=== PATIENT | female | born 1955 | race Caucasian/White ===

== ENCOUNTER 2016-10-20 16:12 | Inpatient (IN) | payer MEDICARE ==
[~2016-10-20] VITALS: Ht 175.3 cm; Wt 156.1 kg
[~2016-10-20 16:12] MED LIST: Etomidate 2 mg/mL 20 mL Inj IV ONE; Rocuronium 10 mg/mL 5 mL Inj ONE
--- NOTE | 2016-10-20 17:50 | NUR ---
Arrival to unit/rapid intubation Patient arrived to room 2019. Decreased LOC at time of arrival, unable to follow commands or answer questions asked. Groaning and grunting to stimuli. ST per soft mud molder. Pressure stable, 130/73. Afebrile. Sp02> 92% on 3L per oxymask. Tenorio present at time of arrival with dark shikha output. Rapid intubation: Pre-medicated with 30mg etomidate & 100mg rocuronium at 17:50. 7.5 ET tube placed 26 at the lip by Dr Kothari at 17:57. Color changed noted. Equal chest rise observed. Bilateral breath sounds auscultated. Chest xray ordered for placement confirmation.
--- NOTE | 2016-10-20 17:55 | ABG ---
DateTimeAnalyzed 17:46:48 -_ pH ____7.135 - 7.350 7.450 pCO2 ___49.4__ -mmHg 35.0 45.0 pO2 143 -mmHg 70.0 100 HCO3- ___16.6__ -mmol/L 22.0 26.0 ABE __-11.4__ -mmol/L -2.0 2.0 tHb ____9.5__ -g/dL 12.0 18.0 O2Hb ___97.6__ -% 95.0 COHb ____1.0__ -% 1.5 MetHb ____0.5__ -% 0.4 1.5 sO2 ___99.1__ -% FIO2 ___21.0__ -% Drawn By jmw - Date/Time Notified____ 17:55:00 -_ Liter_Flow ___15.00_ -L/min Oxygen Device 1 NON RE-MACHO - Notified By jmw - Notified Whom DR NAHID - K+ ____4.9__ -mmol/L tO2 ___13.4__ -Vol% Ruben test _Positive -
[2016-10-20 17:59] VITALS: BP 111/50; PULSE 107; RESP 18; O2SAT 98
--- NOTE | 2016-10-20 17:59 | ABG ---
DateTimeAnalyzed 17:46:48 -_ pH ____7.135 - 7.350 7.450 pCO2 ___49.4__ -mmHg 35.0 45.0 pO2 143 -mmHg 69.0 116 HCO3- ___16.6__ -mmol/L 22.0 26.0 ABE __-11.4__ -mmol/L tHb ____9.5__ -g/dL O2Hb ___97.6__ -% COHb ____1.0__ -% 1.5 MetHb ____0.5__ -% sO2 ___99.1__ -% FIO2 __100.0__ -% Drawn By jmw - Date/Time Notified____ 17:55:00 -_ Notified By jmw - Notified Whom DR NAHID - K+ ____4.9__ -mmol/L tO2 ___13.4__ -Vol% Ruben test _Positive -
[2016-10-20 18:08] VITALS: BP 145/74; O2SAT 96
[2016-10-20 18:15] VITALS: BP 158/79; PULSE 109; RESP 20; O2SAT 95
[2016-10-20 18:30] VITALS: BP 150/68; PULSE 104; RESP 18; O2SAT 93
[2016-10-20] MEDS ORDERED: fentaNYL-PF 50 mCg/mL 2 mL Inj IVPUSH PRN (18:30)
[2016-10-20] MEDS ORDERED: Alum-Mag Hydrox-Simeth 30 mL Suspension PO PRN (18:30)
[2016-10-20] MEDS ORDERED: Ondansetron 2 mg/mL 2 mL Inj IVPUSH PRN (18:30)
[2016-10-20] MEDS ORDERED: Acetaminophen IV 1,000 MG in IV Premix 1 EACH IV PRN (18:30)
[2016-10-20] MEDS ORDERED: Senna-Docusate 8.6-50 mg Tablet PO PRN (18:30)
[2016-10-20] MEDS ORDERED: Vancomycin Dose per Pharmacist XX SCH (18:35)
[2016-10-20] MEDS ORDERED: Propofol 10,000 mCg/mL 100 mL Inj ONE (18:36)
[2016-10-20] MEDS ORDERED: fentaNYL 2,500 mCg/250 mL Premix IV ONE (18:37)
[2016-10-20] MEDS: Propofol Inj 1,000,000 MCG in IV Premix 1 EACH IV SCH (18:38)
[2016-10-20] MEDS: fentaNYL 2,500 mCg/250 mL 2,500 MCG in IV Premix 1 EACH IV PRN (18:38)
[2016-10-20] MEDS: 0.9% Sodium Chloride 1,000 ML IV SCH (18:38)
[2016-10-20] MEDS ORDERED: Famotidine 10 mg/mL 2 mL Inj IV ONE (18:40)
[2016-10-20 18:45] VITALS: BP 156/64; PULSE 98; RESP 18; O2SAT 93
--- NOTE | 2016-10-20 18:49 | DRSVH ---
PROCEDURE: X-RAY CHEST ONE VIEW, PORTABLE ([id number]) INDICATIONS: intubated TECHNIQUE: One view of the chest was acquired. COMPARISON: None. FINDINGS: Surgical changes and devices: There is an endotracheal tube with the tip approximately 2 cm from the lizeth. Lungs and pleura: No pleural effusions or pneumothorax. There are low lung volumes with vascular pr ominence likely due to vascular crowding as well as bibasilar atelectasis. Mediastinum: Mediastinal contours appear prominent likely due to. Heart size is normal. Bones and chest wall: No suspicious bony lesions. Overlying soft tissues appear unremarkable. IMPRESSION: 1. Endotracheal tube tip approximately 2 cm from the lizeth. Recommend withdrawal by approximately 2 cm. 2. Low lung volumes with probable vascular crowding and atelectasis in the lung bases. Recommend at tention on followup. Findings discussed with Dr. Kothari on 10/20/16 at 7:05 p.m. Dictated by: Bahman Lazaro M.D. on 10/20/2016 at 18:41 Transcribed by: GALLITO on 10/20/2016 at 18:48 Approved by: Bahman Lazaro M.D. on 10/20/2016 at 19:18
[2016-10-20] MEDS ORDERED: Cefepime 2,000 mg/100 mL D5W Minibag Plus IV ONE ×2 (19:10)
[2016-10-20] MEDS ORDERED: Vancomycin Inj 2,250 MG in 0.9% Sodium Chloride 500 ML IV ONE (19:15)
[2016-10-20 19:20] LABS: BASOPHILS % (AUTO) 0.1 % (0-3); EOSINOPHILS % (AUTO) 0.2 % (0-5); MONOCYTES % (AUTO) 7.7 % (4-12); Mean Corpuscular Hemoglobin 30.4 pg (27.0-35.0); Mean Corpuscular Volume 93.9 fL (81-100); NEUTROPHILS % (AUTO) 89.4 % (40-74); Platelet Count 273 bil/L (150-400)
[2016-10-20 19:54] LABS: Magnesium 2.1 mg/dL (1.6-2.6)
[2016-10-20 19:59] LABS: TROPONIN T < 0.010 ug/L (0.0-0.011)
[2016-10-20 20:05] LABS: Lipase > 2500 U/L (13-60)
--- NOTE | 2016-10-20 20:20 | ABG ---
DateTimeAnalyzed 20:12:00 -_ pH ____7.198 - 7.350 7.450 pCO2 ___39.1__ -mmHg 35.0 45.0 pO2 ___65.4__ -mmHg 69.0 116 HCO3- ___14.6__ -mmol/L 22.0 26.0 ABE __-12.3__ -mmol/L -2.0 2.0 tHb ____9.5__ -g/dL O2Hb ___87.7__ -% COHb ____2.3__ -% MetHb ____0.0__ -% sO2 ___89.5__ -% FIO2 ___40.0__ -% PRVC 530 - PEEP ____8.0__ -cmH2O Set_RR ___18.0__ -b/min Vt __530.0__ -L Drawn By jh - Date/Time Notified____ 20:19:00 -_ Spontaneous_RR ___18.0__ -b/min Oxygen Device 1 VENTILATOR - Notified By jh - Notified Whom __[place] - B 758 -mmHg tO2 ___11.7__ -Vol% Ruben test _Positive -
[2016-10-20 20:35] VITALS: BP 150/58; PULSE 95; RESP 22; O2SAT 91
[2016-10-20] MEDS ORDERED: Sodium Bicarb(50 mEq) 8.4% Inj 150 MEQ in Dextrose 5% 1,000 ML IV SCH (20:39)
[2016-10-20] MEDS: Chlorhexidine 0.12% 15 mL Oral Solution MT SCH (20:58)
[2016-10-20] MEDS ORDERED: Sodium Bicarb(50 mEq) 8.4% Inj 150 MEQ in Dextrose 5% 1,000 ML IV ONE (21:15)
--- NOTE | 2016-10-20 21:51 | PCM.HPMED ---
Subjective Date of Service Oct 20, 2016 Primary Provider: Admitting Physician: Ruben Villanueva MD Primary Care Physician: Brannon Fournier MD Attending Physician: Ruben Villanueva MD Chief Complaint: Critically ill patient with worsening acidosis transferred from [facility] for higher level of care. History of Present Illness: Cori Dewitt is a 61-year-old woman with past history significant for COPD, hypertension, depression, bipolar disorder, hepatitis C and morbid obesity who was initially evaluated and treated at the [facility] emergency department and was admitted secondary to complaints of abdominal pain weakness. During her evaluation at [facility] she was noted to have acute pancreatitis with a lipase of 33,054 cholelithiasis and metabolic acidosis. Upon her arrival to [facility] the patient had significant respiratory distress and was soon intubated for airway protection. Thus much of the history is obtained from records from [facility] as well as a brief conversation with the patient's family. In the [facility] emergency department her vital signs were stable. On exam at that time she was noted to have epigastric discomfort to palpation with laboratory evaluation notable for significantly elevated amylase and lipase as well as a CT scan that was consistent with pancreatitis. There was no evidence of pancreatic necrosis at that time. She was also noted to have a pulmonary infiltrate that was questionable for pneumonia. She was noted to be in acute renal failure with a creatinine of nearing 3 but was able to produce urine. Of main concern to the outside hospital as was the patient's refractory metabolic acidosis. The patient was noticed to be worsening in her metabolic status with a pH declining from 7.3-7.1 despite a bicarbonate drip. Patient was started on IV Rocephin and IV Zithromax. Metabolic panel from 10/19/2016 showed a potassium of 5.5 chloride of 102 and bicarbonate of 17 as well as a creatinine of 2.9 and a BUN a 54. D-dimer was noted to be elevated at 11. Of note there is a chest x-ray report which states that the patient's right PICC line was removed. It is unclear why this happened. An ABG drawn on shows a pH of 7.14 with a PaCO2 of 43.4 and a PO2 of 72.6 and a bicarbonate 14.6 with a lactic acid of 0.5 drawn at the same time. Review of Systems: A comprehensive review of systems could not be performed due to the patient's altered mental status and intubation. Allergies Coded Allergies: chlorpromazine (Verified Allergy, Severe, Anaphylaxis, 10/20/16) Home Medications Per outside records: Fluoxetine Furosemide Lisinopril Metoprolol succinate Omeprazole Risperidone Spiriva Symbicort Calcium citrate PMH COPD Osteoarthritis and osteoporosis Depression and bipolar Hepatitis C successfully treated antiviral therapy Remote history of IV drug abuse Surgical History Appendectomy Hysterectomy Family History Mother and father are both living in their 90s and are healthy. Social History Hx Alcohol Use: No Hx Substance Use: Yes (marijuana) Hx Tobacco Use: Yes Smoking Status: Former Smoker Exam Vital Signs Vital Sign - Last Date Time Temp Pulse Resp B/P Pulse Ox O2 Delivery O2 Flow Rate FiO2 10/20/16 18:45 98 18 156/64 93 Mechanical Ventilator 35 10/20/16 17:59 36.9 Exam General: Morbidly obese woman currently sedated and intubated HEENT: Normocephalic, atraumatic. External ears without defect. Pupils equal, round, and reactive to light and accommodation. Anicteric sclerae, moist conjunctivae, and no lid lag. Oropharynx free of erythema and cobble stoning with moist mucosa. Dentures. ET tube in place OG tube in place. Neck: Obese neck. Supple with full range of motion. No jugular venous distension. No bruits. No lymphadenopathy or thyromegaly. Cardiovascular: Regular rate and rhythm with no murmurs, rubs, or gallops appreciated Pulmonary: Clear to auscultation bilaterally with no crackles, wheezes, or rhonchi. Mechanically ventilated. Exam severely limited by body habitus. Abdomen: Bowel tones present. Obese. Soft, nontender, nondistended. No hepatosplenomegaly or masses appreciated. Extremities: No clubbing, cyanosis, edema, or lymphadenopathy appreciated. Skin: Normal temperature, turgor. Left lower extremity notable for erythema. Neurological: Cranial nerves grossly intact. Thorough neurological exam performed as the patient is sedated and intubated. Psychiatric: Sedated and intubated. Lab and Diagnostics Result Diagram: 10/20/16190210/20/161902 X-Rays, CTs and MRIs X-ray from [facility] reveals new left basilar infiltrate. An improved right basilar atelectasis. Done on 10/19/16. CT abdomen pelvis without contrast performed on 10/19/16 showing cholelithiasis, pancreatitis, small amount of ascites, diverticulosis, appendectomy and hysterectomy. Additional Diagnostics: DateTimeAnalyzed 17:46:48 -_ pH ____7.135 - 7.350 7.450 pCO2 ___49.4__ -mmHg 35.0 45.0 pO2 143 -mmHg 70.0 100 HCO3- ___16.6__ -mmol/L 22.0 26.0 Assessment & Plan Cori Dewitt is a 61-year-old woman with past history significant for COPD, hypertension, depression, bipolar disorder, hepatitis C and morbid obesity who was initially evaluated and treated at the [facility] emergency department and was admitted secondary to complaints of abdominal pain weakness. Acute respiratory failure secondary to altered mental status, present on admission, acute -Status post intubation, mechanically ventilated. Pulmonology to be consulted for management. -Monitor ABGs PRN vent changes. -Sputum culture -AM CXR Acute pancreatitis likely secondary to gallstone pancreatitis, present on admission, active -[place] 2 score 14. Patient was treated with IV fluids. -Consider gastrology consultation in the a.m. for possible MRCP or ERCP -Continue IVF with goal hematocrit <40. High anion gap metabolic acidosis likely secondary to acute renal failure, present on admission, active -Osmolar gap normal, lactic acid normal. ASA level pending. -Patient's pH is mildly improving. Will initiate mild hyperventilation to increase the pH. -At this point patient will not be initiated on a bicarbonate drip. Acute kidney injury on CKD stage III, present on admission, active -Etiology unclear but may be prerenal. Continues to make urine. -Consider nephrology consultation in the a.m. -Tenorio catheter to monitor urine output. Sepsis, present on admission, active -Source urinary tract infection as per outside records, or left lower extremity cellulitis. -The doses may be secondary to severe pancreatitis versus sepsis. -Initiated on vancomycin and cefepime for broad-spectrum coverage. -Blood cultures, sputum cultures, urine cultures pending -Consider infectious disease consult in the a.m. CODE STATUS: Full code The patient is admitted under inpatient status with anticipate length of stay > 2 midnights due to severity of illness, complexity of treatment and likelihood for decompensation. VTE Prophylaxis: Sub-Q Heparin (Unfractionated) Resuscitation Status: CPR: Attempt Resuscitation Time spent One hour of critical care time Attending Statement The patient was seen and examined with staff. Agree with all attached documentation. Marielos Kothari DO Oct 20, 2016 21:51 Ruben Villanueva MD Oct 21, 2016 12:45
--- NOTE | 2016-10-20 22:16 | DRSVH ---
PROCEDURE: X-RAY CHEST ONE VIEW, PORTABLE ([id number]) INDICATIONS: CENTRAL LINE PLACEMENT TECHNIQUE: One view of the chest was acquired. COMPARISON: [facility], CR, XR CHEST 1VW (PORTABLE), 10/20/2016, 18:01. FINDINGS: Surgical changes and devices: There is a new right internal jugular catheter with the tip extending t o the cavoatrial junction. There is a nasogastric tube extending into the stomach. Lungs and pleura: The right apex is incompletely included on the current study. No pleural effusion s or pneumothorax within the visualized lungs, but a small right apical pneumothorax cannot be occlud ed. There is persistent mild pulmonary edema. Mediastinum: Mediastinal contours appear unchanged. Heart size is at the upper limits of normal. Bones and chest wall: No suspicious bony lesions. Overlying soft tissues appear unremarkable. IMPRESSION: 1. New central venous catheter extends to the cavoatrial junction. 2. Incomplete inclusion of the right apex. A small pneumothorax cannot be excluded. Recommend a ort-term followup repeat study when clinically feasible. 3. Persistent mild pulmonary edema. Dictated by: Bahman Lazaro M.D. on 10/20/2016 at 22:12 Approved by: Bahman Lazaro M.D. on 10/20/2016 at 22:14
--- NOTE | 2016-10-20 22:18 | PCM.PROC ---
Procedure Note Date of Service: Oct 20, 2016 Pre Procedure Diagnosis: 1. Severe Pancreatitis 2. Metabolic Acidosis 3. Encephalopathy Post Procedure Diagnosis: 1. Severe Pancreatitis 2. Metabolic Acidosis 3. Encephalopathy Procedure: Right Internal Jugular Central Venous Line Provider and Personal Injury Paralegal: Jasper Valdez DO Indication for Procedure: Intravenous Access Procedural Analgesia: No local given; patient was given a bolus with Propofol Procedure Details: A time-out was completed verifying correct patient, procedure, site, positioning , and special equipment if applicable. Each lumen of the 9 danish catheter was evacuated of air and flushed with sterile saline. The patient's right internal jugular was then evaluated using ultrasound to visualize the jugular and carotid anatomy. The patient was placed in a dependent position appropriate for central line placement based on the internal jugular vein to be cannulated. The patients right neck was prepped and draped in sterile fashion. A triple lumen 9- Ukrainian catheter was introduced into the the internal jugular using the Seldinger technique and under ultrasound guidance. The catheter was threaded smoothly over the guide wire and appropriate blood return was obtained. The catheter was then secured in place to the skin using a sterile Tegaderm dressing. A follow up chest xray was performed and the catheter tip was decidedly pulled back to the appropriate location in the SVC. Dr. Smart was present for the entire procedure. Estimated Blood Loss: 5mL The patient tolerated the procedure well and there were no complications. Attending Statement I was present before, during and after the procedure. I performed a physical exam myself. Informed consent was given verbally from the patient. I observed direct cannulization of the internal jugular under true time ultrasound. The catheter was placed with meticulous sterile technique. Initial x-rays show the catheter tip to be most likely in the superior vena cava or possibly atrium. This was pulled back. The follow-up films show the catheter to be in good placement without evidence of pneumothorax. Roosevelt Clarke DO Oct 20, 2016 22:18 Jasper Smart DO Oct 28, 2016 18:02
--- NOTE | 2016-10-20 22:58 | PCM.PROC ---
Procedure Note Date of Service: Oct 20, 2016 Pre Procedure Diagnosis: Acute respiratory failure Post Procedure Diagnosis: Acute respiratory failure Procedure: Endotracheal intubation . The patient was preoxygenated. Patient was then treated with 30 mg of etomidate and outer milligrams of rocuronium. Provider and Solar Energy Systems Engineer: Resident: Marielos Kothari Attending: Ruben Villanueva Indication for Procedure: Respiratory distress Findings: Grade 1 view of the cords using a glide scope Procedural Analgesia: Etomidate 30 mg Rocuronium 100 mg Procedure Details: A time-out was completed verifying correct patient, procedure, site, positioning , and special equipment if applicable. The patient was placed in a flat position. Sedation was obtained using Etomidate 30mg. The patient was easily ventilated using an ambu bag. The [employer] was used and inserted into the oropharynx at which time there was a Grade 1 view of the vocal cords. A 7.5-faroese endotracheal tube was inserted and visualized going through the vocal cords. The stylette was removed. Colorimetric change was visualized on the CO2 meter. Breath sounds were heard in both lung villarreal equally. The endotracheal tube was placed at 23 cm, measured at the teeth. Dr. Villanueva was present for the entire procedure. A chest x-ray was ordered to assess for pneumothorax and verify endotrachealtube placement. Specimen: None Post Procedure Plan: Chest x-ray, propofol and fentanyl for sedation on ventilator. Attending Statement The patient was seen and examined with staff. Agree with all attached documentation. The entire procedure was supervised directly by myself. Marielos Kothari DO Oct 20, 2016 22:58 Ruben Villanueva MD Oct 21, 2016 12:47 The patient was seen and examined with staff. Agree with all attached documentation. The entire procedure was supervised directly by myself. Marielos Kothari DO Oct 20, 2016 22:58 Ruben Villanueva MD Oct 21, 2016 12:47
[2016-10-20] MEDS: Albuterol-Ipratropium 3 mL Inhalation Solution NEB SCH (23:38)
[2016-10-21] VITALS (16 sets, daily range): BP systolic 98–125; BP diastolic 43–74; PULSE 92–98; RESP 16–24; O2SAT 92–97
--- NOTE | 2016-10-21 00:27 | ABG ---
DateTimeAnalyzed 00:18:01 -_ pH ____7.174 - 7.350 7.450 pCO2 ___43.4__ -mmHg 35.0 45.0 pO2 ___74.7__ -mmHg 69.0 116 HCO3- ___16.0__ -mmol/L 22.0 26.0 ABE __-11.4__ -mmol/L tHb ____8.8__ -g/dL O2Hb ___93.1__ -% COHb ____1.0__ -% 1.5 MetHb ____0.0__ -% sO2 ___94.1__ -% FIO2 ___50.0__ -% Drawn By jh - Date/Time Notified____ 00:27:00 -_ Notified By jh - Notified Whom __johnson - K+ ____4.4__ -mmol/L tO2 ___11.6__ -Vol% Ruben test _Positive -
--- NOTE | 2016-10-21 00:31 | ABG ---
DateTimeAnalyzed 00:18:01 -_ pH ____7.174 - 7.350 7.450 pCO2 ___43.4__ -mmHg 35.0 45.0 pO2 ___74.7__ -mmHg 69.0 116 HCO3- ___16.0__ -mmol/L 22.0 26.0 ABE __-11.4__ -mmol/L tHb ____8.8__ -g/dL O2Hb ___93.1__ -% COHb ____1.0__ -% 1.5 MetHb ____0.0__ -% sO2 ___94.1__ -% FIO2 ___50.0__ -% PRVC 500 - PEEP ___10.0__ -cmH2O Set_RR 20 -b/min Vt __500.0__ -L Drawn By jh - Date/Time Notified____ 00:27:00 -_ Spontaneous_RR 20 -b/min Oxygen Device 1 VENTILATOR - Notified By jh - Notified Whom __johnson - K+ ____4.4__ -mmol/L tO2 ___11.6__ -Vol% Ruben test _Positive -
[2016-10-21] MEDS: Chlorhexidine 0.12% 15 mL Oral Solution MT SCH ×6 (01:28→20:35)
[2016-10-21] MEDS: Propofol Inj 1,000,000 MCG in IV Premix 1 EACH IV SCH ×8 (01:28→21:56)
[2016-10-21] MEDS: 0.9% Sodium Chloride 1,000 ML IV SCH ×5 (03:02→20:37)
[2016-10-21] MEDS: Albuterol-Ipratropium 3 mL Inhalation Solution NEB SCH ×5 (03:23→23:49)
[2016-10-21] MEDS ORDERED: Vancomycin Serum Trough XX ONE (05:00)
--- NOTE | 2016-10-21 05:05 | ABG ---
DateTimeAnalyzed 04:58:00 -_ pH ____7.187 - 7.350 7.450 pCO2 ___41.8__ -mmHg 35.0 45.0 pO2 ___44.5__ -mmHg 69.0 116 HCO3- ___15.2__ -mmol/L 22.0 26.0 ABE __-11.9__ -mmol/L tHb ____9.0__ -g/dL O2Hb ___73.8__ -% COHb ____1.4__ -% MetHb ____0.7__ -% sO2 ___75.4__ -% FIO2 ___50.0__ -% PRVC 500 - PEEP ___10.0__ -cmH2O Set_RR ___20.0__ -b/min Vt __500.0__ -L Drawn By jh - Date/Time Notified____ 05:04:00 -_ Spontaneous_RR ___20.0__ -b/min Oxygen Device 1 VENTILATOR - Notified By jh - Notified Whom rosa,ruben - B 758 -mmHg tO2 ____9.4__ -Vol% Ruben test N/A -
[2016-10-21 05:14] LABS: BASOPHILS % (AUTO) 0.1 % (0-3); EOSINOPHILS % (AUTO) 0.8 % (0-5); MONOCYTES % (AUTO) 8.1 % (4-12); Mean Corpuscular Hemoglobin 30.1 pg (27.0-35.0); Mean Corpuscular Volume 93.8 fL (81-100); NEUTROPHILS % (AUTO) 86.7 % (40-74); Platelet Count 239 bil/L (150-400)
[2016-10-21 05:28] LABS: APPEARANCE,URINE CLEAR (CLEAR,HAZY); COLOR,URINE YELLOW (YELLOW); OCCULT BLOOD,URINE LARGE (NEGATIVE); UROBILINOGEN,URINE NORMAL (NORMAL)
[2016-10-21 05:50] LABS: Magnesium 2.1 mg/dL (1.6-2.6); Phosphorus 4.1 mg/dL (2.5-4.9)
--- NOTE | 2016-10-21 07:39 | NUR ---
SpO2 Pt had SpO2 mid to low 90s throughout shift despite frequent changes to vent and ABG checks. Desats quickly with turns, bathing, and procedure (IJ placement) but recovers quickly with increased FiO2. Md at bedside throughout night along with RT. Care ongoing
--- NOTE | 2016-10-21 08:01 | PCM.PNMED ---
Subjective Date of Service Oct 21, 2016 Subjective Intensive Care service [facility] PGY3 and Attending Dr. Ford Pt 61-year-old female with medical history of COPD, hypertension, and bipolar/ depression presented with abdominal pain and weakness, found to be obtunded, severe metabolic acidosis, with a lipase of 2.5K, thus intubated and admitted for severe pancreatitis. Pt continued to be intubated and sedated, however able to spontaneously open eyes. Current vent setting tidal volume 400, respiratory rate 24, PEEP 14, FiO2 50%. Patient air trapping in the setting of severe COPD. ABG this a.m. 7.38, PCO2 41.8, HCO3 15.2, PO2 44.5 She has adequate urine output. 0.3cc/kg/hr. Creatinine trending down to 2.18. Talking with family. Patient had long history of ETOH use in the past. No recent ETOH use however. She was hospitalize-Intubated for 1wk last June for what sounds like COPD exacerbation from her brother. He mentioned that she has decompensated significantly. She uses O2 at home. Yet another story, she was admitted for gallstone pancreatitis, no surgery was done at the time. Will clarify with record requests for [place]. Exam Vital Signs Vital Sign - Last Date Time Temp Pulse Resp B/P Pulse Ox O2 Delivery O2 Flow Rate FiO2 10/21/16 06:31 97 125/43 92 55 10/21/16 04:35 37.3 22 Mechanical Ventilator Exam General: intubated sedated. spontaneous eyes open to voice, obese HEENT: Normocephalic, atraumatic. PERRLA, Anicteric sclerae, moist conjunctivae Neck: No JVD, No lymphadenopathy or thyromegaly. thicken neck Cardiovascular: Regular rate and rhythm with no murmurs, rubs, or gallops appreciated Pulmonary: b/l air sound diminished, no crackles wheezes or rhonchi. No use of accessory muscles. Abdomen: quite bowel sound, no signs of retroperitoneal bleeding : Tenorio catheter in placed Extremities: No clubbing, cyanosis. b/l edema mild pitting at the ankle, Skin: lower legs, edematous, calor, erythema around the lower leg to the ankle, b/l weeping of wounds posterior lower legs. Neurological: sedated. unable to evaluate IVs and Medications IV Fluids NS 150cc/hr Medications Reviewed: Medications were reviewed in detail Lab and Diagnostics Result Diagram: 10/21/16 0500 10/21/16 0500 X-Rays, CTs and MRIs [facility]ray from [facility] reveals new left basilar infiltrate. An improved right basilar atelectasis. Done on 10/19/16. CT abdomen pelvis without contrast performed on 10/19/16 showing cholelithiasis, pancreatitis, small amount of ascites, diverticulosis, appendectomy and hysterectomy. Additional Diagnostics DateTimeAnalyzed 17:46:48 -_ pH ____7.135 - 7.350 7.450 pCO2 ___49.4__ -mmHg 35.0 45.0 pO2 143 -mmHg 70.0 100 HCO3- ___16.6__ -mmol/L 22.0 26.0 Assessment & Plan Patient is a 61-year-old female with medical history significant for COPD, hypertension, bipolar/depression, and morbidly obese presented with severe pancreatitis, intubated for airway protection, possible developing ARDS. Hospital day 1 Problem list # Pancreatitis - Source currently unclear. Possible gallstones pathology, or less likely drug induced, lisinopril. Lipid panel negative. distant Hx of EtOH - US abdomen ordered, MRCP if results inclusive. Consult GI if ERCP needed - NS 150cc/hr, will increase to 200cc/hr if echo unremarkable. - Fentyl drip for pain. NG tube in place, NPO for now. # Metabolic encephalopathy - intubated for airway protection - possible ARDS? air trapping Pplat 24 due to severe COPD. - Echocardiogram ordered - duoneb plus pulmocort to open airway - arterial-line for ABG and hydrodynamics # Severe Sepsis - met SIRS criteria, source cellulitis - Fluids NS 150cc/hr. receiving abx # Cellulitis - legs with chronic cellulitis. worsen with recent pedicure "diabetic exfoliation scrubs" 3 days ago - abx: cefepime. ID consulted. concerns for strep, mycobacteria infection # Acute on chronic kidney injury - 2nd to sepsis. making urine 0.3cc/kg/hr - hydrate as above # Anion gap metabolic acidosis - likely JOHN PAUL. other labs such as ethelene glycol pending Total time spent: 1.5hr VTE Prophylaxis: Sub-Q Heparin (Unfractionated) Resuscitation Status: CPR: Attempt Resuscitation Joes Parker DO Oct 21, 2016 08:01 Jose Parker DO Oct 21, 2016 08:01
[2016-10-21] MEDS: Famotidine Inj 50 ML IV SCH (08:05)
[2016-10-21] MEDS: Cefepime Inj 2,000 MG in Dextrose 5% Minibag Plus 100 ML IV SCH ×2 (08:05→20:35)
--- NOTE | 2016-10-21 09:07 | DRSVH ---
PROCEDURE: X-RAY CHEST ONE VIEW, PORTABLE ([id number]) INDICATIONS: respiratory failure TECHNIQUE: One view of the chest was acquired. COMPARISON: [facility], CR, XR CHEST 1VW (PORTABLE), 10/20/2016, 21:47. FINDINGS: Surgical changes and devices: Endotracheal tube, right central venous catheter with distal tip at the distal SVC/right atrial junction and nasogastric tube are unchanged. Lungs and pleura: There is an overall appearance of poor inspiratory effort and increased pulmonary v ascular markings. Mediastinum: Mediastinal contours appear normal. Heart size is normal. Bones and chest wall: No suspicious bony lesions. Overlying soft tissues appear unremarkable. IMPRESSION: Overall appearance of mild edema. Dictated by: Ailyn Day M.D. on 10/21/2016 at 9:04 Approved by: Ailyn Day M.D. on 10/21/2016 at 9:05
[2016-10-21] MEDS: Budesonide 0.5 mg/2 mL Inhalation Solution NEB SCH ×2 (10:05→20:11)
--- NOTE | 2016-10-21 10:25 | NUR ---
NUTRITION ASSESSMENT Assess: 61 YO F admitted to CCU for severe acidosis, respiratory distress, pancreatitis, and sepsis. Pt currently intubated. Pt has been NPO X 1 day. Pt with altered mental status. PMHX: COPD, OA, osteoporosis, depression, bipolar, hep C treated w/ antiviral therapy, hx IV drug abuse. DIET: NPO. LABS: BUN 53, Cr 2.18, CA 7.9, Alb 3.1 MEDICATIONS: Reviewed. Fentanyl, Propofol. GI: No BM noted. SKIN: Leg cellulitis. ANTHROPOMETRICS: Wt 154.9 kg, BMI 50.4 kg/m2, Admit wt: 154.9 kg, Adj. BW: 88.2 kg. ESTIMATED NEEDS: VENT/BMI Calories: 6341-3886 kcal/day (20-22 kcal/kg Adj. BW) Protein: 132-159 g/day (1.5-1.8 g/kg Adj. BW) NUTRITION DIAGNOSIS: 1) Inadequate oral intake related to decreased ability to consume sufficient energy as evidenced by NPO/Vent status. INTERVENTION: 1) Will await plan of care decisions. If pt remains intubated, recommend initiation of nutrition support in the next 24-48 hours. MONITOR/EVALUATE: NPO/Vent status, nutrition support, labs, POC, GI/nutrition status. Follow per high nutrition risk guidelines.
--- NOTE | 2016-10-21 10:34 | DRSVH ---
[facility] [address] [place] [address] Echocardiogram Report Name: MAYKEL MCDANIEL Date: 10/21/2016 Height: 69 in Hospital Exam Location: [facility] Weight: 34 1 lb Gender: Female BSA: 2.6 m2 : 1955 Age: 61 yrs BP: 116/53 mmHg Reason For Study: Pulmonary- Edema Ordering Physician: HOSPITALIST [facility] Performed By: Aparna Bearden Referring Physician[facility] Interpretation Summary Technically difficult study. The left ventricle is grossly normal size with hyperdynamic function. The ejection fraction is estimated to be 65-70%. Mildly dilated left atrium. No obvious valvular abnormality. Right ventricular systolic pressure is estimated to be 35 mmHg plus the clinically estimated CVP which cannot be estimated on this exam. Procedure: A two-dimensional transthoracic echocardiogram with color flow and Doppler was performed. The study quality was technically difficult. There is no prior echocardiogram noted for this patient. A contrast injection of Definity was performed to improve assessment of LV function. The patient was in normal sinus rhythm during the exam. Left Ventricle: The left ventricle is not well visualized. The left ventricle is grossly normal size. The LVOT velocity is 2.1 m/s. The left ventricle is hyperdynamic. The ejection fraction is estimated to be 65-70%. There are no obvious focal wall motion abnormalities noted but poor endocardial definition reduces the sensitivity for the detection of such. Spectral Doppler of the mitral inflow yields an E/A ratio that is between 0.8 and 1.5. Right Ventricle: The right ventricle is normal in size and function. Atria: The left atrium is mildly dilated. Right atrial size is normal. Mitral Valve: The mitral valve is not well visualized. The mitral valve is grossly normal. Aortic Valve: The aortic valve is not well visualized. The aortic valve is grossly normal. The peak aortic velocity is 2.4 m/sec. The aortic valve mean gradient is 11 mmHg. Tricuspid Valve: The tricuspid valve is not well visualized, but is grossly normal. Right ventricular systolic pressure is estimated to be 35 mmHg plus the clinically estimated CVP which cannot be estimated on this exam. There is trace tricuspid regurgitation. Pulmonic Valve: The pulmonic valve is not well visualized. Great Vessels: The aortic root is not well visualized but is probably normal size. Inspiratory collapse cannot be assessed because of mechanical ventilation, thus CVP cannot be estimated.. The IVC has a measurement of 32 mm. Pericardium/ Pleura There is no pericardial effusion. MMode/2D Measurements & Calculations RA long axis: 5.8 cmRVD1 (basal): 3.7 cmTAPSE: 2.5 cm LA A2 area: 25.9 cm LA A4 area: 27.2 cm RA area: 20.6 cm LA length (vol): 7.6 cm RA vol: 62.0 ml LA vol: 78.7 ml RA : 23.9 ml/m2 LA vol index: 30.4 ml/m IVC diam: 3.2 cm Doppler Measurements & Calculations Ao V2 max MV E max kenneth MV E/A: 0.94 TR max kenneth : 238.5 cm/sec : 100.9 cm/sec Med Peak E' Kenneth : 293.6 cm/sec Ao max PG MV A max eknneth TR max PG : 22.8 mmHg : 107.2 cm/sec E/E' med: 11.3 : 34.5 mmHg Ao mean PG MV P1/2t: 45.6 msec Lat Peak E' Kenneth PA V2 max : 11.2 mmHg : 91.1 cm/sec LVOT Max Kenneth E/E' lat: 7.8 PA mean PG : 214.7 cm/sec E/e' average: 9.5 sev ratio PA Accel Time : 0.11 sec MV dec time MV P1/2t max kenneth Ao V2 mean LV V1 max PG : 0.16 sec : 153.2 cm/sec Ao V2 VTI: 42.5 cm LV V1 VTI MVA(P1/2t): 4.8 cm2 : 37.9 cm PA V2 mean : 63.8 cm/sec Electronically signed by: Simone Jaimes on Reading Physician:10/21/2016 10:33 AM
--- NOTE | 2016-10-21 13:38 | DRSVH ---
PROCEDURE: US ABDOMEN ([id number]) INDICATIONS: pancreatitis.galbladder/billiary tree pathology? TECHNIQUE: Real-time scanning was performed of the abdominal and retroperitoneal organs, with image documentatio n. COMPARISON: Outside Film, US, US ABDOMEN, 10/19/2016, 21:50. FINDINGS: Liver: Liver measures 20.7 cm in craniocaudad size and is homogeneous in echotexture, diffusely hype rechoic consistent with fatty infiltration. Gallbladder: There is a 1.3 cm gallstone within the gallbladder lumen. A small amount of adjacent fr ee fluid is present but there is no sign of gallbladder wall thickening. Biliary ducts: Intrahepatic bile ducts are non-dilated. Extrahepatic bile duct caliber measures 6.9 mm. Normal is 6-7 mm or less in diameter, or 10 mm or less post-cholecystectomy. Pancreas: Visualized portions of the pancreas are sonographically normal. Spleen: Spleen is normal in size and homogeneous in echotexture. Kidneys: Kidneys are normal in size and echotexture. Right kidney measures 12.4 cm long; left kidne y measures 12.1 cm long. No hydronephrosis or nephrolithiasis. No solid masses. Aorta: Visualized aorta is normal in caliber at less than 3 cm but only the upper third of the aorti c clearly seen due to bowel gas. Iliacs: Not well-visualized due to bowel gas. IVC: Intrahepatic inferior vena cava is patent. Miscellaneous: There is only a small amount of free fluid at the right and left lower quadrants fluid , not accessible for ultrasound guided paracentesis. IMPRESSION: Gallstone within the gallbladder lumen, without gallbladder wall thickening. Slight amou nt of adjacent pericholecystic free fluid. Hepatomegaly, fatty infiltration throughout the liver. S light amount of free fluid deep within the pelvis, not safe for ultrasound guided paracentesis. Poor visualization of significant portions of the retroperitoneum due to overlying bowel gas. Dictated by: Daniel Mack M.D. on 10/21/2016 at 13:33 Approved by: Daniel Mack M.D. on 10/21/2016 at 13:36
--- NOTE | 2016-10-21 14:52 | PCM.PNMED ---
Subjective Date of Service Oct 21, 2016 Subjective Hospital day 1. The patient is sedated and intubated. She is saturating well on the ventilator, breathing easily. She will spontaneously open her eyes but was otherwise nonresponsive. Exam Vital Signs Vital Sign - Last Date Time Temp Pulse Resp B/P Pulse Ox O2 Delivery O2 Flow Rate FiO2 10/21/16 12:24 90 110/58 93 55 10/21/16 11:37 37.4 24 Mechanical Ventilator Exam General: Intubated and Sedated. Spontaneous eyes open to voice, obese. HEENT: NCAT. PERRLA. Anicteric sclerae, moist conjunctivae. Neck: No JVD, No lymphadenopathy or thyromegaly. Cardiovascular: RRR with no murmurs, rubs, or gallops appreciated Pulmonary: On ventilator. Coarse breath sounds throughout both sides but no crackles/wheezes/rhonchi. Abdomen: Soft, nondistended. Bowel sounds present but distant. : Tenorio catheter in place Extremities: Pitting edema bilaterally at the ankles. LE are erythematous and slightly warm with weeping fluid. Neurological: Sedated. unable to evaluate Psychiatric: Sedated, unable to evaluate. IVs and Medications Medications Reviewed: Medications were reviewed in detail Lab and Diagnostics Result Diagram: 10/21/16 0500 10/21/16 0500 X-Rays, CTs and MRIs Abd US IMPRESSION: Gallstone within the gallbladder lumen, without gallbladder wall thickening. Slight amount of adjacent pericholecystic free fluid. Hepatomegaly , fatty infiltration throughout the liver. Slight amount of free fluid deep within the pelvis, not safe for ultrasound guided paracentesis. Poor visualization of significant portions of the retroperitoneum due to overlying bowel gas. X-ray from [facility] reveals new left basilar infiltrate. An improved right basilar atelectasis. Done on 10/19/16. CT abdomen pelvis without contrast performed on 10/19/16 showing cholelithiasis, pancreatitis, small amount of ascites, diverticulosis, appendectomy and hysterectomy. Cardiac Echo Impressions Echo 10/21 Technically difficult study. The left ventricle is grossly normal size with hyperdynamic function. The ejection fraction is estimated to be 65-70%. Mildly dilated left atrium. No obvious valvular abnormality. Right ventricular systolic pressure is estimated to be 35 mmHg plus the clinically estimated CVP which cannot be estimated on this exam Additional Diagnostics DateTimeAnalyzed 17:46:48 -_ pH ____7.135 - 7.350 7.450 pCO2 ___49.4__ -mmHg 35.0 45.0 pO2 143 -mmHg 70.0 100 HCO3- ___16.6__ -mmol/L 22.0 26.0 Assessment & Plan Patient is a 61-year-old female with medical history significant for COPD, hypertension, bipolar/depression, and morbidly obese presented with severe pancreatitis, intubated for airway protection, possibly developing ARDS. Pancreatitis, present on admission, acute. Ongoing. - Source currently unclear. Possible gallstones pathology, or less likely drug/toxin induced. - US abdomen ordered, gallstone present but no conclusive evidence; consider GI consult for possible MRCP - NS currently running at 150cc/hr with increase to 200cc/hr if echo unremarkable. - Continue Fentyl drip for pain - NG tube in place, keep NPO for now. Metabolic encephalopathy, present on admission, acute. Ongoing. - Intubated for airway protection - possible ARDS or air trapping due to severe COPD. - Echocardiogram as above - Continue Duoneb plus Pulmocort to promote airway patency - Obtain Arterial line for ABG and hydrodynamics monitoring Severe Sepsis, present on admission, acute. Improving. - Patient met SIRS criteria, possible source cellulitis of LE - Fluids, antibiotics as above - Blood, urine cultures negative thus far - ID consulted for concerns of possible mycobacteria infection, appreciate their recommendations Cellulitis, present on admission, acute. Ongoing. - Bilateral LE erythematous and warm, reportedly worse with recent pedicure and "diabetic exfoliation scrubs" 3 days ago - Continue Cefepime - ID following, appreciate their recommendations Acute on Chronic Kidney Injury, present on admission. Ongoing. - Likely secondary to sepsis - Urine output currently 0.3cc/kg/hr - Fluids as above - Avoid nephrotoxic medications as necessary Anion gap metabolic acidosis, present on admission, acute. - Likely due to JOHN PAUL, sepsis - Salicylates negative - Ethylene glycol, methyl alcohol pending Acetaminophen for mild pain, fever, headache when necessary. Bowel regimen Senna and MiraLAX scheduled as necessary. Zofran when necessary for nausea and vomiting. Sub-Q Lovenox every 12 hours. SCD's contraindicated due to LE cellulitis. Disposition: The patient will likely be here throughout the week depending on her response to fluid resuscitation, antibiotics, and other medical interventions. VTE Prophylaxis: Sub-Q Enoxaparin Resuscitation Status: CPR: Attempt Resuscitation Attending Statement The patient was seen and examined together with Dr. Castillo on 10/21/16 and I have added additional information to the note above. Sadi Castillo DO Oct 21, 2016 14:30 Rosa M Abbasi DO Oct 26, 2016 14:22
--- NOTE | 2016-10-21 15:46 | CONS ---
[address] [address] CONSULTATION REPORT PATIENT: MAYKEL MCDANIEL : 1955 MR#: [id number] ADMIT: 10/20/2016 JOB ID: [id number] DATE OF SERVICE: 10/21/2016 REASON FOR CONSULTATION: Ventilatory dependent respiratory failure in a patient with severe pancreatitis and possible lower extremity infection. HISTORY OF THE PRESENT ILLNESS: The patient is a 61-year-old woman with a history of COPD, morbid obesity, hypertension, bipolar disorder, treated and reportedly cured hepatitis C, and recurrent pancreatitis. She was evaluated and admitted to the [facility] in June of this year with pancreatitis and then readmitted two days ago on October 19. She was subsequently transferred to this facility overnight. Her initial complaint when she reported to [facility] this time was abdominal pain as it was in June. She was quickly diagnosed with pancreatitis on the basis of her extraordinarily elevated lipase levels, greater than 33,000. Ultrasound and noncontrast CT were done there and showed cholelithiasis prior to her transfer. The patient required intubation while at [facility] because she became obtunded and had a progressive metabolic acidosis. She is now ventilator dependent and requiring relatively high levels of inspired oxygen and PEEP, at 55 FiO2 and 14 of PEEP. This case has been extensively discussed during the morning ICU rounds and subsequently with the ICU team once again, and all available records from [facility] have been reviewed. There is unfortunately no family member here and obviously the patient is intubated and sedated so additional history is not forthcoming. PAST MEDICAL HISTORY: 1. COPD. 2. Super morbid obesity. BMI greater than 50. 3. Hypertension. 4. Bipolar disorder. 5. Treated hepatitis C and presumably cured. 6. Distant history of IV drug use. 7. Status post appendectomy and hysterectomy. 8. Recurrent pancreatitis. 9. Cholelithiasis. SOCIAL HISTORY: The patient is reportedly still smoking and has a 130 pack year history according to notes in the chart. Two separate notes in the [facility] records indicates she either drinks very little or none at all. Beyond that, we do not know much else. She is a and there are no family members here to supply any more history. FAMILY HISTORY: Unknown in this intubated, sedated patient. REVIEW OF SYSTEMS: Unknown in this intubated, sedated patient. PHYSICAL EXAMINATION: Reveals a woman lying supine in the ICU. She is currently orally intubated. She has been afebrile during her brief stay here. At midnight she was 37.7, right now 37.5, pulse about 90, and that it is a sinus rhythm. Respiratory rate is controlled by the ventilator, blood pressure 98/74. She is not on vasopressor agents. She is on 55%, 14 of PEEP, pulse ox 96. Examination of the head reveals no trauma or temporal wasting. Eyes without conjunctivitis or scleral icterus. Nose appears normal. Oral endotracheal tube in good position. Neck is obese and hard to examine but without adenopathy or obvious JVD. Lungs with decreased coarse breath sounds bilaterally. Focally worse at the left base. Cardiac tones: Regular rate and rhythm without notable murmur. Abdomen is distended. It appears to be nontender though of course the patient is intubated and sedated. I cannot appreciate palpable organs or a pancreatic mass at this point. The patient has a Tenorio catheter in place. She has a great deal of candidal-type erythema, and the nurse's report that when she got here, almost a cottage cheese-like material from her inguinal folds and underneath her pannus. None of this appears infected, though it is all erythematous, and there are some satellite lesions. She does have a Tenorio catheter. Her extremities are notable for significant bilateral edema with very classic stasis dermatitis changes bilaterally. On the underside of both legs, however, there is some skin breakdown, more so on the left than the right, though the area on the right is more circumscribed but deeper. Whether or not this is infected cannot be ascertained by the exam. There is edema of both feet, some cracking between the toenails and diffusely dry skin over both lower extremities. There is no obvious synovitis. Capillary refill is a bit slow bilaterally and diminished. Distal pulses are noted. No evidence of synovitis on the exam. As mentioned, the patient is intubated, sedated. No neurologic exam is possible. Labs here include a white count 21,000 last night, now 17. Her platelet count is 239. Creatinine 2.18. It was 2.6 when she got here last night. Albumin 3.1. LFTs normal including an alk phos of only 66. Lipase 33,000 at [facility], now 1009 here. Urinalysis: Greater than 50 red cells but no white cells are noted. A vancomycin trough done this morning is 20. Micro studies from our hospital include negative blood cultures x2. Urine culture is pending. MRSA screen negative. Urine pneumococcal antigen negative. Urine Legionella antigen not done. IMAGING: Was reviewed on the screen. Her chest x-ray shows decreased lung volumes with some revascularization consistent with pulmonary edema. IMPRESSION: This is a complicated case on whom we lack history. The patient has been admitted now twice in four months with severe pancreatitis. The nature of this pancreatitis is unclear as the patient is known to have longstanding cholelithiasis, but according to the scans available from [facility] [facility], both in June and on this admission, there is no indication of common bile duct stone impaction or acute cholecystitis. Also her liver function tests are completely normal including the alkaline phosphatase and bilirubin, which would tend to argue against an impacted common duct stone or gallstone pancreatitis, though it does not exclude the diagnosis. I still wonder about alcoholic pancreatitis, but the history obtained, at least at [facility] is lacking in that department and it appears there is no history of overwhelming alcohol use, though it is difficult to know. There is a distant history of IV drug use and history of cured hepatitis C by report. At this point, I would avoid vancomycin as we have a negative MRSA screen and I am by no means certain this patient is infected. Acute pancreatitis can behave exactly like septic shock in terms of lab studies and clinical parameters and there is really no way to distinguish the two. At this point, we are waiting on blood and urine cultures. Question has been raised about whether she could have bilateral cellulitis and there is some history not contained in the chart but which has been passed around orally this morning about the patient having a whirlpool treatment in the days leading up to this admission, possibly with a sugar or honey covering applied to the legs. It is certainly possible that the lesions on the calves bilaterally could be infected, but her legs are symmetrical and not extremely warm, and I tend to doubt that she has any infection of the lower extremities. As to her hepatitis C, it is reportedly cured, and I think what we need to do to confirm that will be to check a hepatitis C viral load. RECOMMENDATIONS: 1. Will check an ASO titer. 2. Check a hepatitis C quantitative viral load. 3. I would discontinue the vancomycin to avoid toxicity and we have taken that step. 4. Cefepime is a reasonable antibiotic until we have some more data, but classic antibiotics used in the setting of acute pancreatitis are typically carbapenems. 5. Additional imaging was discussed with the ICU team and I agree that we need better imaging of the right upper quadrant, gallbladder, liver, and pancreas. 6. Additional history from the family, especially alcohol use, could be extremely useful in this situation. 7. Will continue to closely follow this complex patient with you.
[2016-10-21] MEDS: fentaNYL 2,500 mCg/250 mL 2,500 MCG in IV Premix 1 EACH IV PRN (16:11)
--- NOTE | 2016-10-21 16:34 | ABG ---
DateTimeAnalyzed 16:27:00 -_ pH ____7.165 - 7.350 7.450 pCO2 ___40.6__ -mmHg 35.0 45.0 pO2 ___91.4__ -mmHg 69.0 116 HCO3- ___14.1__ -mmol/L 22.0 26.0 ABE __-13.3__ -mmol/L -2.0 2.0 tHb ____9.0__ -g/dL O2Hb ___92.0__ -% COHb ____2.4__ -% MetHb ____0.0__ -% sO2 ___93.3__ -% FIO2 ___55.0__ -% PRVC 400 - PEEP ___14.0__ -cmH2O Set_RR ___24.0__ -b/min Vt __428.0__ -L Drawn By jmw - Date/Time Notified____ 16:33:00 -_ Spontaneous_RR ___24.0__ -b/min Oxygen Device 1 VENTILATOR - Notified By jmw - Notified Whom DR KENDREGEN - B 759 -mmHg tO2 ___11.7__ -Vol% OrderingPhysicianInitials bak - Ruben test N/A -
--- NOTE | 2016-10-21 17:15 | NUR ---
STATUS SR per alarm security or surveillance monitor. Pressure stable, MAP ranging from 65-75. Tenorio to DD, 700cc urine produced this shift. NS infusing at 200cc/hr. T-Max 37.6. Continues on PRVC with 55% fi02 and PEEP of 14. Oxygen saturation maintained >92% throughout shift. ABG results noted. Minimal secretions with ET suction. Grimaces to painful stimuli, unable to follow commands at this time. Propofol and fentanyl sedation continued for ventilator tolerance and pain control. Will continue to monitor.
[2016-10-21] MEDS: Albuterol-Ipratropium 3 mL Inhalation Solution NEB PRN ×2 (18:19→21:51)
--- NOTE | 2016-10-21 18:43 | PCM.PROC ---
Procedure Note Date of Service: Oct 21, 2016 Pre Procedure Diagnosis: pancreatitis. sepsis Post Procedure Diagnosis: pancreatitis, sepsis Procedure: Right radial arterial line Provider and Media Developer: Jose Parker PGY3 and edger saw operator Dr. Ford Indication for Procedure: frequent ABG and hemodynamics Procedural Analgesia: Fentanyl drip Procedure Details: A time-out was completed verifying correct patient, procedure, site, positioning , and Ultrasound was present. Allenstest was performed to ensure adequate perfusion. The patients <RIGHT> wrist was prepped and draped in sterile fashion. A 18G Arrow arterial line was introduced into the <RIGHT RADIAL ARTERY> . The catheter was threaded over the guide wire and the needle was removed with appropriate pulsatile blood return. The catheter was then secured by IV- therapy. Perfusion to the extremity distal to the point of catheter insertion was checked and found to be adequate. Several attempts were tried, each time with flash back or positioned correctly on ultrasound. Guide wire was unable to initially thread. Dr. Ford assisted, and was able to advance wire and thread catheter into the Right radial artery. Estimated Blood loss: <1cc Post Procedure Plan: Clean dressing with daily check for skin breakdown and infections. Jose Parker DO Oct 21, 2016 16:30
[2016-10-22] VITALS (17 sets, daily range): BP systolic 86–121; BP diastolic 42–57; PULSE 82–136; RESP 16–24; O2SAT 92–96
[2016-10-22] MEDS: Propofol Inj 1,000,000 MCG in IV Premix 1 EACH IV SCH ×9 (00:11→23:16)
[2016-10-22] MEDS: Chlorhexidine 0.12% 15 mL Oral Solution MT SCH ×6 (00:13→20:51)
--- NOTE | 2016-10-22 00:57 | ABG ---
DateTimeAnalyzed 00:49:36 -_ pH ____7.143 - 7.350 7.450 pCO2 ___38.5__ -mmHg 35.0 45.0 pO2 ___78.6__ -mmHg 69.0 116 HCO3- ___13.2__ -mmol/L 22.0 26.0 ABE __-14.4__ -mmol/L tHb ____8.6__ -g/dL O2Hb ___93.5__ -% COHb ____1.0__ -% 1.5 MetHb ____0.6__ -% sO2 ___95.0__ -% FIO2 ___21.0__ -% PEEP ___14.0__ -cmH2O Set_RR 24 -b/min Vt __400.0__ -L Drawn By MD - Date/Time Notified____ 00:56:00 -_ Spontaneous_RR 24 -b/min Oxygen Device 1 VENTILATOR - Notified By MD - Notified Whom DR HASANDRAS - K+ ____4.8__ -mmol/L tO2 ___11.5__ -Vol% Ruben test N/A -
[2016-10-22 02:46] LABS: BASOPHILS % (AUTO) 0.1 % (0-3); EOSINOPHILS % (AUTO) 0.7 % (0-5); MONOCYTES % (AUTO) 7.5 % (4-12); Mean Corpuscular Hemoglobin 30.2 pg (27.0-35.0); Mean Corpuscular Volume 96.1 fL (81-100); NEUTROPHILS % (AUTO) 87.2 % (40-74); Platelet Count 244 bil/L (150-400)
[2016-10-22] MEDS: 0.9% Sodium Chloride 1,000 ML IV SCH ×4 (02:51→17:00)
[2016-10-22] MEDS ORDERED: Norepinephrine 8,000 mCg/250 mL NS Premix IV ONE (03:28)
[2016-10-22] MEDS: Norepineph 8,000 mCg/250 mL NS 8,000 MCG in IV Premix 1 EACH IV SCH ×6 (03:45→23:16)
[2016-10-22] MEDS ORDERED: Furosemide 10 mg/mL 2 mL Inj IVPUSH ONE (04:35)
[2016-10-22] MEDS: Albuterol-Ipratropium 3 mL Inhalation Solution NEB SCH (04:48)
--- NOTE | 2016-10-22 05:01 | ABG ---
DateTimeAnalyzed 04:54:21 -_ pH ____7.128 - 7.350 7.450 pCO2 ___39.2__ -mmHg 35.0 45.0 pO2 ___92.1__ -mmHg 69.0 116 HCO3- ___13.0__ -mmol/L 22.0 26.0 ABE __-14.8__ -mmol/L tHb ____9.0__ -g/dL O2Hb ___95.6__ -% COHb ____0.9__ -% 1.5 MetHb ____0.5__ -% sO2 ___96.9__ -% FIO2 ___21.0__ -% PEEP ___14.0__ -cmH2O Set_RR 24 -b/min Vt __400.0__ -L Drawn By MD - Date/Time Notified____ 05:01:00 -_ Spontaneous_RR 24 -b/min Oxygen Device 1 VENTILATOR - Notified By MD - Notified Whom RN C.TANA - K+ ____4.6__ -mmol/L tO2 ___12.3__ -Vol% Ruben test N/A -
[2016-10-22] MEDS ORDERED: Sodium Bicarb (50 mEq) 8.4% 1 mEq/mL 50 mL Syringe ONE (06:47)
[2016-10-22] MEDS ORDERED: Calcium GLUCOnate 10% (Gm) 1 Gm/10 mL Inj IVPUSH ONE (06:50)
[2016-10-22] MEDS ORDERED: Diltiazem 5 mg/mL 5 mL Inj IV PRN (07:00)
[2016-10-22] MEDS ORDERED: Diltiazem Inj 125 MG in 0.9% Sodium Chloride 100 ML, Pharmacy To Mix 1 EA IV SCH (07:05)
[2016-10-22] MEDS: fentaNYL 2,500 mCg/250 mL 2,500 MCG in IV Premix 1 EACH IV PRN (07:42)
[2016-10-22] MEDS: Diltiazem 125 mg/125 mL D5W IV SCH ×4 (07:44→22:42)
[2016-10-22 07:45] LABS: Magnesium 2.1 mg/dL (1.6-2.6)
[2016-10-22] MEDS: Ipratropium 0.02% 0.5 mg/2.5 mL Inhalation Solution NEB SCH ×5 (07:58→23:51)
[2016-10-22] MEDS: Budesonide 0.5 mg/2 mL Inhalation Solution NEB SCH ×2 (07:58→21:11)
--- NOTE | 2016-10-22 08:29 | ABG ---
DateTimeAnalyzed 08:21:34 -_ pH ____7.113 - 7.350 7.450 pCO2 ___39.4__ -mmHg 35.0 45.0 pO2 164 -mmHg 69.0 116 HCO3- ___12.6__ -mmol/L 22.0 26.0 ABE __-15.4__ -mmol/L tHb ____9.2__ -g/dL O2Hb ___98.1__ -% COHb ____0.7__ -% 1.5 MetHb ____0.5__ -% sO2 ___99.4__ -% FIO2 __100.0__ -% PRVC 400 - PEEP ___14.0__ -cmH2O Set_RR 24 -b/min Vt __436.0__ -L Drawn By jmw - Date/Time Notified____ 08:29:00 -_ Spontaneous_RR 26 -b/min Oxygen Device 1 VENTILATOR - Notified By jmw - Notified Whom DR KENDREGEN - K+ ____4.4__ -mmol/L tO2 ___13.0__ -Vol% OrderingPhysicianInitials bak - Ruben test N/A -
--- NOTE | 2016-10-22 08:29 | DRSVH ---
PROCEDURE: X-RAY CHEST ONE VIEW, PORTABLE ([id number]) INDICATIONS: intubated. ARDS? TECHNIQUE: One view of the chest was acquired. COMPARISON: [facility], CR, XR CHEST 1VW (PORTABLE), 10/21/2016, 6:06. FINDINGS: Surgical changes and devices: The endotracheal tube, NG tube, and central venous catheter are unchang ed. Lungs and pleura: As before, there is mild interstitial prominence throughout both lungs. There is sl ightly improved aeration at the left lung base when compared with the study dated 10/21/16. No pneumot horax. Mediastinum: Mediastinal contours appear normal. Heart size is normal. Bones and chest wall: No suspicious bony lesions. Overlying soft tissues appear unremarkable. IMPRESSION: Slightly improved aeration of the left lung base. Otherwise unchanged. Dictated by: Katina Vela M.D. on 10/22/2016 at 8:27 Approved by: Katina Vela M.D. on 10/22/2016 at 8:27
[2016-10-22] MEDS ORDERED: DAPTOMYCIN IV SCH (08:30)
[2016-10-22] MEDS ORDERED: Meropenem 1 Gm/100 mL NS Minibag Plus IV SCH ×2 (08:30)
[2016-10-22] MEDS ORDERED: SODIUM CHLORIDE 0.9% IV SCH (08:30)
[2016-10-22] MEDS: Cisatracurium Inj 200,000 MCG in 0.9% Sodium Chloride-Pha MIX 100 ML IV SCH ×3 (08:35→21:55)
--- NOTE | 2016-10-22 08:35 | NUR ---
Blood pressure/ Afib RVR/ Urine output Pt blood pressure steadily declining overnight. Attempt to wean propofol but when pt is not sedated she auto PEEPs on vent. MD notified. Levophed gtt initiated and sedation to prevent auto PEEPing. Around 0600, pt converted into afib RVR 180s. MD at bedside and performed carotid massage. Cardizem IVP and gtt initiated. Pt also given 1 amp bicarb IVP. Pads placed on pt. MDs at bedside. Care ongoing
--- NOTE | 2016-10-22 08:43 | NUR ---
Call to family Made calls to family and spoke to brother Daniel and informed of change in telemetry changes/ and overall decline. Attempted to call renu Acosta but she had no voicemail. Left message on machine for son Evens. Care ongoing
--- NOTE | 2016-10-22 09:11 | PROG NOTE ---
[address] [address] PROGRESS NOTE PATIENT: MAYKEL MCDANIEL : 1955 MR#: [id number] ADMIT: 10/20/2016 JOB ID: [id number] DATE: 10/22/2016 REASON FOR FOLLOW UP: Ventilatory dependent respiratory failure, shock and refractory hypotension. INTERVAL HISTORY: Over the past 24 hours or so since I last saw the patient, she has deteriorated. I recall that yesterday she was intubated requiring moderate levels of FiO2 and PEEP to sustain her oxygen saturation. Overnight, her oxygen requirements have increased and her blood pressure and urine output have both decreased. She is now requiring much larger doses of vasopressor agents. This case was discussed with the ICU team, as well as with the nurse at the bedside. PHYSICAL EXAMINATION: Reveals an afebrile woman, temp 37.2, and she has been afebrile since admission which is now about 36 hours ago. Pulse is currently about 120 and was regular and then while I was examining the patient, I had actually increased and switched to fib flutter rapid rhythm. She is on 100% on the ventilator which is dramatically increased over just the past few hours apparently as the notes in the computer indicate she was on 55% FiO2 a few hours ago. She is now on 100%. PEEP remains high at 14. Pulse ox reasonable in the 90s. Examination of the eyes reveals no conjunctival or scleral abnormalities. The pupils are equal. There is oral endotracheal tube oral gastric tube. The right neck central line is present and looks uninfected. There is a mild erythroderma of the upper chest. Examination of the lungs is notable for diffuse rhonchi and some rales at the bases. Cardiac tones rapid and difficult to auscultate, but apparently regular rhythm at least when I initially listened. The abdomen is grossly distended, morbidly obese with some doughy texture to the abdomen, but no discrete palpable masses are noted. There is some erythema within the folds of the groin and the pannus, but this appears to be a candidal infection. The extremities are notable for bilateral stasis dermatitis which is improved overnight and is now just a faint erythroderma which is equal on both lower extremities anteriorly. Once again, picking up and examining the back side of the left leg, there is some skin sloughing along the left posterior calf. The right posterior calf looks less involved, but there is also a small amount of skin breakdown there, but none of this appears especially purulent or warm. One cannot assess tenderness of the legs. LABORATORY DATA: Labs include a white count stable at 21,400, which is exactly what it was when she came in on the night of the . Her platelets stable at 244, 87% segs. Her creatinine is 2.38 this morning which is increased coincident with her decreased urine output. LFTs are normal this morning. BNP 412. I recall that her initial procalcitonin was 0.11 and 0.13. We do not have one from today, but I have asked for one to be done as soon as possible. HIV is back negative. Streptozyme is 196 which is at the upper limit of normal and will also repeat that. Micro studies of interest include a sputum Gram stain, which was basically negative. MRSA screen of the nares which was negative by PCR. Blood cultures negative. Urine, no growth and pneumococcal urine antigen which is negative. I do not see a Legionella urine antigen. An abdominal ultrasound done yesterday showed no gallbladder wall thickening, a scant amount of pericholecystic fluid. There is fatty infiltration throughout the liver. I recall that the initial chest x-ray showed what appeared to be mild pulmonary edema. I reviewed today's chest x-ray on the computer and compared it to prior. It actually looks improved with less pulmonary edema. There is some evidence of atelectasis and a pleural effusion on the left by my reading. Note, that there has not been an official radiology interpretation yet today. IMPRESSION: Overnight, the patient has clearly worsened. She now has deep vein shock requiring more vasopressor agents, as well as worsening respiratory insufficiency and more cardiac instability as manifested by these rapidly changing tachyarrhythmias. This is a difficult case of a woman who clearly started off with a severe pancreatitis with lipase values greater than 30,000 at [place] prior to transfer. There are no blood cultures from [place] as we called there yesterday and apparently this infection was not a concern there. After arrival here, the blood cultures, as well as urine which are negative. A MRSA screen is also negative. It is possible that this entire septic picture is actually due to pancreatitis as pancreatitis can be a mimic of septic shock. It is also possible that she has infection elsewhere such as in her biliary tree or within her abdomen. Another possibility would be that the infection in the left posterior calf is much more severe than we think and what is transpiring here is staph or strep-related shock. At this point, it is very unclear which of these is her predominant issue in this critically ill woman and I think we are obligated to broaden our coverage. RECOMMENDATIONS: 1. Will add procalcitonin to this morning's labs. Note that two prior values have been essentially negative. Will also be adding another ASO titer, as the last one was at the upper limit of normal and we may see a bump there. 2. Will go ahead and discontinue the cefepime she has been receiving and instead institute a whole new antibiotic regimen to include meropenem, the dose of 2 g q. 12. 3. In addition to meropenem, we will add clindamycin. I realize this is a debatable choice as we have really no good evidence of soft tissue infection and the left posterior thigh does not look all that bad to me, but it is possible that this is a nidus of strep or staph infection. I recall that we have no clear cut evidence for a soft tissue infection there as there is nothing to culture at this point and our ASO titer, and blood cultures are negative, but I do think in view of the patient's critical overall situation that the addition of clindamycin may make sense. 4. Will also add some daptomycin again for complete coverage including MRSA. I recognize we have a negative MRSA screen and the chance that this is MRSA sepsis is extremely unlikely, but in view of the patient's critical situation, I think we have very little margin for air at this time. In view of her diminished renal function, will give the daptomycin q. 48 h.
--- NOTE | 2016-10-22 09:17 | ABG ---
DateTimeAnalyzed 09:10:00 -_ pH ____7.076 - pCO2 ___43.3__ -mmHg pO2 ___73.4__ -mmHg HCO3- ___12.2__ -mmol/L ABE __-16.7__ -mmol/L tHb ____9.2__ -g/dL O2Hb ___89.4__ -% COHb ____1.1__ -% MetHb ____0.8__ -% sO2 ___91.1__ -% FIO2 __100.0__ -% PRVC 400 - PEEP ___14.0__ -cmH2O Set_RR ___24.0__ -b/min Vt __435.0__ -L Drawn By jmw - Date/Time Notified____ 09:16:00 -_ Spontaneous_RR ___24.0__ -b/min Oxygen Device 1 VENTILATOR - Notified By JMW - Notified Whom DR KENDREGEN - B 761 -mmHg tO2 ___11.6__ -Vol% OrderingPhysicianInitials bak - Ruben test N/A -
[2016-10-22] MEDS: DAPTOMYCIN IV SCH (09:24)
[2016-10-22] MEDS: SODIUM CHLORIDE 0.9% IV SCH (09:24)
[2016-10-22] MEDS: MethylprednisoLONE Sodium Succinate 40 mg/mL Inj IVPUSH SCH ×2 (09:24→17:09)
[2016-10-22] MEDS: Famotidine Inj 50 ML IV SCH (09:24)
[2016-10-22] MEDS: Clindamycin Inj 900 MG in IV Premix 1 EACH IV SCH ×2 (09:24→17:09)
[2016-10-22] MEDS: Furosemide 10 mg/mL 4 mL Inj IVPUSH SCH (09:25)
[2016-10-22] MEDS: Meropenem Inj 2,000 MG in 0.9% Sodium Chloride 100 ML IV SCH ×2 (09:25→20:51)
--- NOTE | 2016-10-22 10:00 | PCM.PNMED ---
Subjective Date of Service Oct 22, 2016 Subjective Overnight the patient has decompensated. She is difficult to ventilate, requiring more oxygen, at 100% from the 55% just hours ago. Her blood pressure also deteriorated and she is now on Norepinephrine to maintain pressure. Her urine output has also decreased despite the addition of Lasix. Exam Vital Signs Vital Sign - Last Date Time Temp Pulse Resp B/P Pulse Ox O2 Delivery O2 Flow Rate FiO2 10/22/16 09:34 135 86/47 96 100 10/22/16 04:32 37.2 24 Mechanical Ventilator Intake and Output 10/21/16 10/21/16 10/22/16 Cumulative From/Thru 15:00 23:00 07:00 10/20/16 18:25 - 10/22/16 05:25 Intake Total 2005 ml 2359 ml 2992 ml 7356 ml Output Total 1200 ml 800 ml 325 ml 2325 ml Balance 805 ml 1559 ml 2667 ml 5031 ml Intake IV Total 2005 ml 2359 ml 2992 ml 7356 ml Output Urine Total 1100 ml 700 ml 225 ml 2025 ml Gastric Drainage Total 100 ml 100 ml 100 ml 300 ml # Bowel Movements 0 0 0 Exam General: Intubated and Sedated. No eye opening to voice this morning. HEENT: NCAT. PERRLA. Anicteric sclerae, moist conjunctivae. Neck: No JVD, No lymphadenopathy or thyromegaly. Cardiovascular: Tachycardic, irregular rhythm No murmurs/rubs. Pulmonary: On ventilator. Diffuse crackles, worse in the lung bases. No wheezing. Abdomen: Obese, distended. Bowel sounds faint but present. No masses noted. : Tenorio catheter in place. Scant output. Extremities: LE edema equal bilaterally, left leg has significant skin sloughing and weeping fluid. Neurological: Sedated. unable to evaluate Psychiatric: Sedated, unable to evaluate. IVs and Medications Medications Reviewed: Medications were reviewed in detail Lab and Diagnostics Result Diagram: 10/22/1622910/22/16 023 X-Rays, CTs and MRIs Chest XR 10/22 IMPRESSION: Slightly improved aeration of the left lung base. Otherwise unchanged. Dictated by: Katina Vela M.D. on 10/22/2016 at 8:27 Approved by: Katina Vela M.D. on 10/22/2016 at 8:27 Abd US IMPRESSION: Gallstone within the gallbladder lumen, without gallbladder wall thickening. Slight amount of adjacent pericholecystic free fluid. Hepatomegaly , fatty infiltration throughout the liver. Slight amount of free fluid deep within the pelvis, not safe for ultrasound guided paracentesis. Poor visualization of significant portions of the retroperitoneum due to overlying bowel gas. X-ray from [facility] reveals new left basilar infiltrate. An improved right basilar atelectasis. Done on 10/19/16. CT abdomen pelvis without contrast performed on 10/19/16 showing cholelithiasis, pancreatitis, small amount of ascites, diverticulosis, appendectomy and hysterectomy. Cardiac Echo Impressions Echo 10/21 Technically difficult study. The left ventricle is grossly normal size with hyperdynamic function. The ejection fraction is estimated to be 65-70%. Mildly dilated left atrium. No obvious valvular abnormality. Right ventricular systolic pressure is estimated to be 35 mmHg plus the clinically estimated CVP which cannot be estimated on this exam Additional Diagnostics DateTimeAnalyzed 17:46:48 -_ pH ____7.135 - 7.350 7.450 pCO2 ___49.4__ -mmHg 35.0 45.0 pO2 143 -mmHg 70.0 100 HCO3- ___16.6__ -mmol/L 22.0 26.0 Assessment & Plan Patient is a 61-year-old female with medical history significant for COPD, hypertension, bipolar/depression, and morbidly obese presented with severe pancreatitis, intubated for airway protection, and possibly developing ARDS. Atrial Fibrillation with RVR, not present on admision, acute. Ongoing. - Patient went into atrial fibrillation overnight - Diltiazem drip for rate control per ICU team - [id number] score is 2 (female 1, HTN 1); patient is currently on Lovenox prophylactically Pancreatitis, present on admission, acute. Ongoing. - Source currently unclear. Possible gallstones pathology, or less likely drug/ toxin induced. - US abdomen ordered, gallstone present but no conclusive evidence; consider GI consult for possible MRCP depending on goals of care - Fluids stopped as patient seemed to be overloaded, received 7.3L fluid - Continue Fentyl drip for pain (Will discuss with critical care for possible titration down to help with increase in blood pressure) - NG tube in place, continue NPO status. Metabolic encephalopathy, present on admission, acute. Ongoing. - Intubated for airway protection - possible ARDS or air trapping due to severe COPD. - Echocardiogram as above - Continue Duoneb plus Pulmocort to promote airway patency - Arterial line for continuous ABG's - Patient was paralyzed today in an attempt to increase ventilation effectiveness Severe Sepsis, present on admission, acute. Improving. - Patient met SIRS criteria, likely source cellulitis of LE - Fluids stopped as above - Patient now on Norepinephrine to maintain blood pressures - Blood, urine cultures continue to be negative - ID changed antibiotics for possible LE cellulitis with accompanying toxic shock syndrome to the following: Meropenem 2g q12 hours Daptomycin q48 hours Clindamycin q8 hours - Palliative care is consulted during ICU rounds 10/22 to assess goals of care with family who will be in town 10/23 Cellulitis, present on admission, acute. Ongoing. - Bilateral LE erythematous and warm, reportedly worse with recent pedicure and "diabetic exfoliation scrubs" 3 days ago - Clinically, the redness has retreated but there is skin sloughing of her left LE - Antibiotic change as above Acute on Chronic Kidney Injury, present on admission. Ongoing. - Likely secondary to sepsis - Urine output has fallen despite aggressive hydration - Fluids dc'd as above - Avoid nephrotoxic medications as necessary Anion gap metabolic acidosis, present on admission, acute. - Likely due to JOHN PAUL, sepsis - Salicylates negative - Ethylene glycol, methyl alcohol pending Acetaminophen for mild pain, fever, headache when necessary. Bowel regimen Senna and MiraLAX scheduled as necessary. Zofran when necessary for nausea and vomiting. Sub-Q Lovenox every 12 hours. SCD's contraindicated due to LE cellulitis. Disposition: The patient will likely be here throughout the week depending on her response to fluid resuscitation, antibiotics, and other medical interventions. VTE Prophylaxis: Sub-Q Enoxaparin Resuscitation Status: CPR: Attempt Resuscitation Attending Statement The patient was seen and examined together with Dr. Castillo on 10/22/2016 and I agree with the history, exam and plan as outlined in the note above. Sadi Castillo DO Oct 22, 2016 10:00 Rosa M Abbasi DO Oct 22, 2016 17:59
--- NOTE | 2016-10-22 10:19 | PCM.PNMED ---
Subjective Date of Service Oct 22, 2016 Subjective Critical care consultation Patient is a 61-year-old female with medical history significant for severe COPD initially showed up to [facility] with abdominal pain, obtunded, found to have metabolic acidosis and severe pancreatitis, ultimately intubated and transferred to [facility] ICU for further medical management. US abdomen was done yesterday with findings of gallstones and small fluid collection of fluids, and an otherwise unremarkable scan, no dilatated ducts noted. Likewise, echocardiogram showed EF 65-70%, right ventricular pressure at 35 mmHg, no focal wall motion abnormalities. Given the severity of pancreatitis with initial lipase of over 3000, normal saline running at 150 mL per hour was increased to 200 mL per hour. Overnight, blood pressure drifted downward reportedly in the 80s/40s. Norepinephrine drip started, and Lasix given for possible fluid overload. This a.m., became tachyarrhythmia, atrial fibrillation with RVR is in the 150s. Bicarbonate push given in addition to Cardizem drip started. Patient additionally had air stacking, auto PEEP, thus was also paralyzed with Nimbex. Vitals MAXIMUM TEMPERATURE 37.4, O2 96% saturation on FiO2 100%., Patient remained intubated I's and O's significant for oliguric, with a total urine output of 150 mL/hour over the past 12 hours Labs CBC significant for elevated white count of 21.4, neutrophil 87.2, hemoglobin remained stable at 8.6, platelets stable at 244. CMP significant for bicarbonate 11, BUN/creatinine 53, creatinine 2.38, glucose 86. Anion gap 20 Lactate 0.5 Serum osmole 299, calculated osmole 305 Exam Vital Signs Vital Sign - Last Date Time Temp Pulse Resp B/P Pulse Ox O2 Delivery O2 Flow Rate FiO2 10/22/16 09:34 135 86/47 96 100 10/22/16 04:32 37.2 24 Mechanical Ventilator Intake and Output 10/21/16 10/21/16 10/22/16 Cumulative From/Thru 15:00 23:00 07:00 10/20/16 18:25 - 10/22/16 05:25 Intake Total 2005 ml 2359 ml 2992 ml 7356 ml Output Total 1200 ml 800 ml 325 ml 2325 ml Balance 805 ml 1559 ml 2667 ml 5031 ml Intake IV Total 2005 ml 2359 ml 2992 ml 7356 ml Output Urine Total 1100 ml 700 ml 225 ml 2025 ml Gastric Drainage Total 100 ml 100 ml 100 ml 300 ml # Bowel Movements 0 0 0 Exam General: intubated sedated. spontaneous eyes open to voice, obese HEENT: Normocephalic, atraumatic. PERRLA, Anicteric sclerae, moist conjunctivae Neck: No JVD, No lymphadenopathy or thyromegaly. thicken neck , right central line in place Cardiovascular: Irregularly irregular, no murmur rubs or gallops Pulmonary: b/l air sound diminished, no crackles wheezes or rhonchi. Abdomen: quite bowel sound, no signs of retroperitoneal bleeding : Tenorio catheter in placed Extremities: No clubbing, cyanosis. b/l edema pitting up to the thighs, significantly worse and yesterday, right distal forearm radial arterial line in place Skin: lower legs, edematous, calor, erythema around the lower leg to the ankle, b/l weeping of wounds posterior lower legs. Neurological: sedated. unable to evaluate Lab and Diagnostics Result Diagram: 10/22/16 0230 10/22/16 0230 X-Rays, CTs and MRIs Abd US IMPRESSION: Gallstone within the gallbladder lumen, without gallbladder wall thickening. Slight amount of adjacent pericholecystic free fluid. Hepatomegaly , fatty infiltration throughout the liver. Slight amount of free fluid deep within the pelvis, not safe for ultrasound guided paracentesis. Poor visualization of significant portions of the retroperitoneum due to overlying bowel gas. X-ray from [facility] reveals new left basilar infiltrate. An improved right basilar atelectasis. Done on 10/19/16. CT abdomen pelvis without contrast performed on 10/19/16 showing cholelithiasis, pancreatitis, small amount of ascites, diverticulosis, appendectomy and hysterectomy. Cardiac Echo Impressions Echo 10/21 Technically difficult study. The left ventricle is grossly normal size with hyperdynamic function. The ejection fraction is estimated to be 65-70%. Mildly dilated left atrium. No obvious valvular abnormality. Right ventricular systolic pressure is estimated to be 35 mmHg plus the clinically estimated CVP which cannot be estimated on this exam Additional Diagnostics DateTimeAnalyzed 17:46:48 -_ pH ____7.135 - 7.350 7.450 pCO2 ___49.4__ -mmHg 35.0 45.0 pO2 143 -mmHg 70.0 100 HCO3- ___16.6__ -mmol/L 22.0 26.0 Assessment & Plan Patient is a 61-year-old female with medical history significant for COPD, hypertension, bipolar/depression, and morbidly obese presented with severe pancreatitis, intubated for airway protection, possibly developing ARDS. #Distributed shock - Venous SaO2 91.0 with ABG FIO2 100% PaO2 164, satting at 96% - probable pancreatitis, perhaps sepsis - continue Norepinephrine drip - measure hemodynamics with [place] system - consider diurese if patient fluid overload, possible decrease peep # Pancreatitis - Source, possibly a small gallstones that past, triggering pancreatitis, and due to the dehydration, worse in the pancreatitis - US abdomen unremarkable - Hold fluids, possible fluid overload, received 7.3L fliuids - Fentyl drip for pain. NG tube in place, NPO for now. # Metabolic encephalopathy - intubated for airway protection, currently sedated, paralyzed due to autopeep - likely acidemic. PH is 7.1 - Likely secondary to renal pathology # COPD exacerbation, emphysematous - Systemic steroids: Solu-Medrol 60 mg every 8 hours - Atrovent every 4 hours, Pulmicort twice a day - High PEEP # Severe Sepsis - met SIRS criteria, source cellulitis - Fluid resuscitated, lactic acid normal # Cellulitis - legs with chronic cellulitis. worsen with recent pedicure "diabetic exfoliation scrubs" 3 days ago - abx: Meropenem, clindamycin, daptomycin given concern for staph, possibly strep, and MRSA sepsis. - Appreciate infectious disease continue following # Acute on chronic kidney injury - 2nd distributed shock, oliguric - We will adjust her epinephrine, versus diuretics, versus vent setting to improve hemodynamic based on the [place] system # Anion gap metabolic acidosis with a secondary alkalosis process - Likely acute kidney injury - No lactic acid, negative for ketones, osmolar gap unremarkable - Glutathione and D lactate ordered Per discussion with son, DPL A, he will be back tomorrow in a.m. to discuss goals of care. Patient is currently FULL CODE Total time 1.5 hours VTE Prophylaxis: Sub-Q Enoxaparin Resuscitation Status: CPR: Attempt Resuscitation Jose Parker DO Oct 22, 2016 10:19
--- NOTE | 2016-10-22 10:28 | NUR ---
Palliative Care Palliative Care received verbal order from Dr Gates 10/22/16 to assist with goals of care. Patient admitted 10/20/16. Evens Dewitt (son) [phone] Palliative Care to follow. Cinthia Taveras
--- NOTE | 2016-10-22 11:24 | NUR ---
received TC from Francoise martinez's Moisés , [id number]. Francoise is able to assist with SNF placement, DME, HH and other DC needs. Advised PROGRAM PROJECT MANAGER.
--- NOTE | 2016-10-22 13:22 | NUR ---
NUTRITION FOLLOW-UP: Assess: 61 YO F admitted to CCU for severe acidosis, respiratory distress, pancreatitis, and sepsis. Pt currently intubated. Pt has been NPO X 2 days. Nimbex has been started to help control respiratory status. Palliative care is following as pt has poor prognosis. PMHX: COPD, OA, osteoporosis, depression, bipolar, hep C treated w/ antiviral therapy, hx IV drug abuse. DIET: NPO x2 LABS: CO2 11, Bun 53, Fruit Farmer 2.38, Ca 7.9, Alb 3.1, lipase 1009 MEDICATIONS: Reviewed. Fentanyl, Propofol, nimbex, norepinephrine, lasix GI: No BM noted. SKIN: Leg cellulitis/edema, Jasbir 10 ANTHROPOMETRICS: Wt 151.6 kg, BMI 49.4 kg/m2, Admit wt: 154.9 kg, Adj. BW: 87.3kg. ESTIMATED NEEDS: VENT/BMI Calories: 2672-0359 kcal/day (20-22 kcal/kg Adj. BW) Protein: 130-155 g/day (1.5-1.8 g/kg Adj. BW) NUTRITION DIAGNOSIS: 1) Inadequate oral intake related to decreased ability to consume sufficient energy as evidenced by NPO/Vent status. --PERSISTS INTERVENTION: 1) Will await plan of care decisions. If pt remains intubated, recommend initiation of nutrition support in the next 24-48 hours. Recommend start TF of Vital 1.5 due to pancreatitis. Due to pt being on nimbex, recommend start TF at trophic rate of 10ml/hr and hold x24 hrs. If this is tolerated, recommend increase by 10my q 12 hrs until reach goal rate of 55ml/hr to provide 1815kcal and 82g pro (100% kcal and 65% pro). 2) Recommend addition of prosource once TF at goal rate to better meet protein needs. 3) Adjust goal rate based on propofol and nimbex MONITOR/EVALUATE: NPO/Vent status, nutrition support, labs, wt, POC, GI/nutrition status. Follow per high nutrition risk guidelines.
[2016-10-22] MEDS: Thiamine Inj 200 MG in Dextrose 5% 50 ML IV SCH (13:50)
--- NOTE | 2016-10-22 14:24 | ABG ---
DateTimeAnalyzed 14:17:00 -_ pH ____7.048 - 7.350 7.450 pCO2 ___44.0__ -mmHg 35.0 45.0 pO2 134 -mmHg 69.0 116 HCO3- ___11.5__ -mmol/L 22.0 26.0 ABE __-17.9__ -mmol/L -2.0 2.0 tHb ____9.5__ -g/dL O2Hb ___96.1__ -% COHb ____0.7__ -% MetHb ____0.7__ -% sO2 ___97.5__ -% FIO2 __100.0__ -% PRVC 400 - PEEP ___12.0__ -cmH2O Set_RR ___24.0__ -b/min Vt 4330.0__ -L Drawn By jmw - Date/Time Notified____ 14:23:00 -_ Spontaneous_RR ___24.0__ -b/min Oxygen Device 1 VENTILATOR - Notified By jmw - Notified Whom _DR SAVAGE - B 760 -mmHg tO2 ___13.1__ -Vol% Ruben test N/A -
[2016-10-22] MEDS ORDERED: Sodium Acetate Inj 150 MEQ in Dextrose 5% 1,000 ML IV ONE (17:25)
--- NOTE | 2016-10-22 17:39 | NUR ---
Worsening acidosis. Remains on vent support, sedated with Fentanyl and propofol, Nimbex added this morning for autopeeping, adjusted per TOF. EEG done. Norepinephrine at 0.85mcg, increased a bit this shift to maintain BP. Hemodynamics obtained via Vigileo monitoring, MD aware. UOP slightly improved, 475mls/12 hours. No stool. OGT drained 125mls bilious fluid. Bedside blood glucose 100, no insulin indicated. Afib this morning, Diltiazem gtt titrated, converting to sinus rhythm, HR of 84, at 1300. Brother here today, updated by MDs. Son to arrive tomorrow afternoon, also updated by Md this morning.
[2016-10-22] MEDS: Sodium Acetate Inj 150 MEQ in Dextrose 5% 1,000 ML IV SCH (18:38)
--- NOTE | 2016-10-22 23:20 | ABG ---
DateTimeAnalyzed 23:13:12 -_ pH ____7.067 - 7.350 7.450 pCO2 ___45.3__ -mmHg 35.0 45.0 pO2 ___92.5__ -mmHg 69.0 116 HCO3- ___13.0__ -mmol/L 22.0 26.0 ABE __-15.7__ -mmol/L tHb ____9.2__ -g/dL O2Hb ___95.5__ -% COHb ____0.8__ -% 1.5 MetHb ____0.7__ -% sO2 ___96.9__ -% FIO2 ___21.0__ -% PRVC 400 - PEEP ___10.0__ -cmH2O Set_RR 24 -b/min Vt __400.0__ -L Drawn By MD - Date/Time Notified____ 23:20:00 -_ Spontaneous_RR 24 -b/min Oxygen Device 1 VENTILATOR - Notified By MD - Notified Whom RN K.TEJA - K+ ____5.3__ -mmol/L tO2 ___12.5__ -Vol% Ruben test N/A -
[2016-10-23] VITALS (12 sets, daily range): BP systolic 108–139; BP diastolic 46–62; PULSE 62–81; RESP 24; O2SAT 89–97
[2016-10-23] MEDS: MethylprednisoLONE Sodium Succinate 40 mg/mL Inj IVPUSH SCH ×3 (00:39→16:21)
[2016-10-23] MEDS: Chlorhexidine 0.12% 15 mL Oral Solution MT SCH ×6 (00:40→20:30)
[2016-10-23] MEDS: Clindamycin Inj 900 MG in IV Premix 1 EACH IV SCH ×3 (00:40→16:20)
[2016-10-23] MEDS: Norepineph 8,000 mCg/250 mL NS 8,000 MCG in IV Premix 1 EACH IV SCH ×3 (02:31→20:39)
[2016-10-23] MEDS: Ipratropium 0.02% 0.5 mg/2.5 mL Inhalation Solution NEB SCH ×6 (04:13→23:58)
[2016-10-23 04:42] LABS: Mean Corpuscular Hemoglobin 30.1 pg (27.0-35.0); Mean Corpuscular Volume 95.7 fL (81-100); Platelet Count 286 bil/L (150-400)
--- NOTE | 2016-10-23 04:42 | ABG ---
DateTimeAnalyzed 04:32:17 -_ pH ____7.115 - 7.350 7.450 pCO2 ___45.1__ -mmHg 35.0 45.0 pO2 ___96.7__ -mmHg 69.0 116 HCO3- ___14.5__ -mmol/L 22.0 26.0 ABE __-13.7__ -mmol/L tHb ____9.3__ -g/dL O2Hb ___96.2__ -% COHb ____0.7__ -% 1.5 MetHb ____0.5__ -% sO2 ___97.5__ -% FIO2 ___21.0__ -% PRVC 400 - PEEP ___10.0__ -cmH2O Set_RR 24 -b/min Vt __400.0__ -L Drawn By ta - Spontaneous_RR 24 -b/min Oxygen Device 1 VENTILATOR - Notified By MD - Notified Whom RN-K Kayode - K+ ____4.3__ -mmol/L tO2 ___12.8__ -Vol% Ruben test N/A -
[2016-10-23 04:57] LABS: BASOPHILS % (AUTO) 0 % (0-3); EOSINOPHILS % (AUTO) 0 % (0-5); MONOCYTES % (AUTO) 5 % (4-12); NEUTROPHILS % (AUTO) 85 % (40-74)
[2016-10-23 05:18] LABS: T4 (Thyroxine) 3.2 ug/dL (4.7-13.3)
[2016-10-23] MEDS: Sodium Acetate Inj 150 MEQ in Dextrose 5% 1,000 ML IV SCH ×3 (05:40→20:31)
--- NOTE | 2016-10-23 05:44 | NUR ---
P: hypotension I: norepinephrine drip E: Slowly titrating norepinephrine down fro 0.75mcg to a current 0.2mcg, BP =109/48 currently. Tele SR. Cardizem drip at 5mg/hr. Infusing sodium acetate at 100ml/hr. CVP 19. UOP 50ml/hr. Ventilated at 100% fi02, 10 peep. Sats low to mid 90s. Not over breathing vent rate. Nimbex, propofol, and fentanyl drips for sedation and comfort. TO4 4/4 when nimbex at 0.5mcg. At 1mcg TO4 0/4. RASS -4 to -5.
--- NOTE | 2016-10-23 07:40 | PCM.PNMED ---
Subjective Date of Service Oct 23, 2016 Subjective Patient is a 61-year-old female with medical history significant for severe COPD initially admitted for pancreatitis from [facility], intubated for decreased mental status into the ICU on 10/20/2016. Her ongoing issue has been significant metabolic acidosis with unknown secondary cause, distributive shock possibly secondary to sepsis versus less likely pancreatitis, COPD exacerbation, and atrial fibrillation. Overnight, patient vitals remained stable temperature 37, heart rate in 80s sinus with map of 66, saturating at 95% on an FiO2 of 100%, vent setting total volume 400, RR 24, PEEP 10, and auto PEEP 14. ABG this morning pH is 7.11, PCO2 of 45.1, PaO2 96.7, calculated bicarbonate 14.5 Urine output improved, currently 0.19cc/kg/hr. Lab significant for creatinine 2.66, gap of 20, with delta gap 0.7 Significant increase in WBC, white blood cell 30.9 with 4% bands band Exam Vital Signs Vital Sign - Last Date Time Temp Pulse Resp B/P Pulse Ox O2 Delivery O2 Flow Rate FiO2 10/23/16 04:30 37.0 80 24 108/46 95 Mechanical Ventilator 100 Intake and Output 10/22/16 10/22/16 10/23/16 Cumulative From/Thru 15:00 23:00 07:00 10/20/16 18:25 - 10/23/16 05:32 Intake Total 2633 ml 3013 ml 57414 ml Output Total 600 ml 800 ml 3725 ml Balance 2033 ml 2213 ml 9277 ml Intake IV Total 2633 ml 3013 ml 96557 ml Output Urine Total 475 ml 700 ml 3200 ml Gastric Drainage Total 125 ml 100 ml 525 ml # Bowel Movements 0 0 0 Exam General: intubated sedated. Morbidly obese, bed elevated to 30 head incline HEENT: Normocephalic, atraumatic. PERRLA, Anicteric sclerae, moist conjunctivae Neck: No JVD, No lymphadenopathy or thyromegaly. thicken neck , right central line in place Cardiovascular: Regular rate and rhythm, no murmur rub or gallop Pulmonary: b/l air sound diminished, no crackles, mild bilateral wheezes noted Abdomen: quite bowel sound, no signs of retroperitoneal bleeding : Tenorio catheter in placed Extremities: No clubbing, cyanosis. b/l edema pitting up to the thighs, significantly worse and yesterday, left posterior lower leg wound on change in redness, right distal forearm radial arterial line in place Skin: lower legs, edematous, calor, erythema around the lower leg to the ankle, b/l weeping of wounds posterior lower legs. Neurological: sedated, paralyzed. unable to evaluate IVs and Medications IV Fluids D5W with sodium acetate at 75 mL/HR Lab and Diagnostics Result Diagram: 10/23/16 0435 10/23/16 0435 X-Rays, CTs and MRIs Chest XR 10/22 IMPRESSION: Slightly improved aeration of the left lung base. Otherwise unchanged. Dictated by: Katina Vela M.D. on 10/22/2016 at 8:27 Approved by: Katina Vela M.D. on 10/22/2016 at 8:27 Abd US IMPRESSION: Gallstone within the gallbladder lumen, without gallbladder wall thickening. Slight amount of adjacent pericholecystic free fluid. Hepatomegaly , fatty infiltration throughout the liver. Slight amount of free fluid deep within the pelvis, not safe for ultrasound guided paracentesis. Poor visualization of significant portions of the retroperitoneum due to overlying bowel gas. X-ray from [facility] reveals new left basilar infiltrate. An improved right basilar atelectasis. Done on 10/19/16. CT abdomen pelvis without contrast performed on 10/19/16 showing cholelithiasis, pancreatitis, small amount of ascites, diverticulosis, appendectomy and hysterectomy. Cardiac Echo Impressions Echo 10/21 Technically difficult study. The left ventricle is grossly normal size with hyperdynamic function. The ejection fraction is estimated to be 65-70%. Mildly dilated left atrium. No obvious valvular abnormality. Right ventricular systolic pressure is estimated to be 35 mmHg plus the clinically estimated CVP which cannot be estimated on this exam Additional Diagnostics DateTimeAnalyzed 17:46:48 -_ pH ____7.135 - 7.350 7.450 pCO2 ___49.4__ -mmHg 35.0 45.0 pO2 143 -mmHg 70.0 100 HCO3- ___16.6__ -mmol/L 22.0 26.0 Assessment & Plan Patient is a 61-year-old female with medical history significant for severe COPD initially admitted for pancreatitis from [facility], status post intubation for decreased mentation, currently in ICU day 4. Problem list Respiratory Ventilation Dependent Respiratory failure - Still autopeep, though significantly better with Nimbex - RR set at 24, balancing the need to CO2 vs worsening autopeep w/ subsequent hemodynamic depression - Decrease FiO2 to 80% - Continue with sedation and paralytics - ABG as needed - CRX in the am COPD exacerbation - History of cigarette smoke, currently weed on a daily basis - Continue ipratropium and Pulmicort - Solu-Medrol 60 mg every 8 hours Infectious Cellulitis of the left lower leg, improving - ASO negative, cultures negative thus far. - Antibiotic regiment meropenem, clindamycin, daptomycin per Dr. Hardin - Concerns for possible abscesses, lewis CT scan ordered Hemodynamics Distributed shock, improving - Possible sepsis, less likely pancreatitis - Maintaining MAP, decreasing needs for levophed, and urine output up. - V[place]leo readings SVV low, suggestive of perhaps fluid replete, edging toward overload - Decreased fluid intake, maintain map>65. Proximal atrial fibrillation, resolved - Currently normal sinus, some concern for recurrence given acidotic state - Continue Cardizem drip Hematology Leukocytosis with mild bands - Possible infectious cause in addition to steroid use - Lewis scan CT as above Normocytic anemia - Hemoglobin 9.1 - Monitor, transfuse if hemoglobin less than 7 DVT prophylaxis - Lovenox subcutaneous Metabolic Anion gap metabolic acidosis - Negative ketones, lactic acids, normal osmolar gap - Likely a combination of respiratory acidosis and renal failure - Senior sodium acetate drip 75 mL/hour Acute on chronic kidney injury - Unknown baseline creatinine, secondary to distributive shock, dehydration - Urine output increase - Monitor electrolyte Alimentary Pancreatitis - Continue IV pain medication and hydration - Start trophic feeding - Trend lipase in the setting of pancreatitis GI prophylaxis - Famotidine Neurologic - Intubated, sedated, paralyzed - Consider sedation holiday once Nimbex off Total time spent 1.5 hour VTE Prophylaxis: Sub-Q Enoxaparin VTE Mechanical Devices: Intermittant Pneumatic CD Resuscitation Status: CPR: Attempt Resuscitation Jose Parker DO Oct 23, 2016 07:40
[2016-10-23] MEDS: Cisatracurium Inj 200,000 MCG in 0.9% Sodium Chloride-Pha MIX 100 ML IV SCH ×3 (07:44→19:55)
[2016-10-23] MEDS: Budesonide 0.5 mg/2 mL Inhalation Solution NEB SCH ×2 (07:54→19:53)
--- NOTE | 2016-10-23 07:58 | PROG NOTE ---
[address] [address] PROGRESS NOTE PATIENT: MAYKEL MCDANIEL : 1955 MR#: [id number] ADMIT: 10/20/2016 JOB ID: [id number] DATE: 10/23/2016 REASON FOR FOLLOWUP: Shock and ventilatory-dependent respiratory failure of unknown etiology. INTERVAL HISTORY: Overnight, the patient has stabilized slightly. She remains intubated, sedated, and paralyzed, who still requires extraordinarily high levels of ventilatory support, though slightly better than yesterday. She also requires ongoing vasopressor agents, but considerably less than yesterday, and there has been an uptick in her urine output. The source of this apparent septic shock remains unclear at this point. Recall this case started off with pancreatitis when was admitted four days or so ago to [facility], and subsequently transferred here. She continues to have a profound anion gap acidosis with negative lactate and ketones, which leaves us in a quandary as to the nature of this very severe acidosis. This case was discussed in detail at the bedside with the ICU team, as well as nursing and others this morning. PHYSICAL EXAMINATION: Reveals an afebrile woman. Note that she has been afebrile since admission, though on occasion, she has had temperatures to 37.8, which would be borderline. Her pulse is now down to the 70s, and is sinus rhythm again after yesterday's tachyarrhythmia issues. Her blood pressure is 108/46, and she is requiring 0.2 of norepinephrine, much decreased from yesterday's 0.8. Her urine output has improved to 800 cc overnight, where it had been fairly minimal during the day yesterday. She is still on 100% FiO2 on the ventilator, but her PEEP is slightly decreased from 14-10, and she is oxygenating well at those settings. Examination of the head reveals no notable new abnormalities. The eyes are without conjunctivitis or scleral icterus. The patient does not have an NG tube. The oral endotracheal tube and orogastric tube are in good position, as is her central line. Her lungs are relatively clear bilaterally, with some crackles heard at the bases. Cardiac tones are once again regular rate and rhythm, without any significant murmur. The abdomen is slightly distended. I cannot appreciate hepatosplenomegaly, nor pancreatic mass. We cannot check for tenderness as the patient is both sedated and paralyzed. She does have a Tenorio catheter in, and she is now producing urine as noted. The stasis dermatitis on both legs is almost completely resolved, which I think is primarily a function and having her legs up while she is here in the ICU. The skin slough on the left posterior calf remains, and there is a minimal amount of weeping from that area. It does not appear to be grossly infected, but could conceivably be the site of a significant infection. LABORATORIES: Include white count jumped to 31,000, but she is on steroids. There are 4% bands. Platelet count is 286. Creatinine 2.66, which is about where she came in, at 2.6, three days ago to this hospital. LFTs are normal. Albumin 2.8. Urinalysis without white cells. Serologic studies, including hepatitis C quantitation is pending. HIV negative. Strep design went from -, which is not a significant change and not diagnostic of anything. Blood cultures remain negative. PCR negative. Urine culture negative. Respiratory viral PCR studies negative. IMAGING: Today's chest x-ray shows, to my reading, more focality in the right lower lobe, as there does appear to be either asymmetric congestive heart failure, atelectasis, or some developing pneumonia there, but it does appear worse than prior, and particular the right lower area. This has not yet been officially read by the radiologist. IMPRESSION: This remains an extremely complex and ambiguous case of a woman who was transferred here from [place] because of respiratory failure, hypotension, and apparent severe pancreatitis. The case has become more complex as the patient has, in many ways, resembled septic shock, but we do not have a clear-cut source of infection. Her left posterior calf has some weeping, erythematous area, but does not look terribly infected. There are no other obvious sources of infection. The case was also complicated by the tremendous metabolic acidosis she has had, which is not explained by lactate, nor by ketones. Yesterday, I was very concerned about the possibility of preps a Staph or strep toxic shock syndrome arising from her left leg, and on that basis, we modified her antibiotics to include meropenem, clindamycin, and daptomycin. There has been some improvement overnight, though it is of course completely unclear whether this is due to the antibiotics. The slight increase in ASO titer does not, in my opinion, prove anything. RECOMMENDATIONS: 1. Will continue with these antibiotics as there does seem to be some improvement, even though the patient remains clinically critically ill. 2. I agree with Dr. Ford's suggestion yesterday for a total body CT scan to include sinuses, neck, chest, abdomen, and pelvis. 3. Given that she does seem to be developing an infiltrate, will check a sputum Gram stain and culture today. 4. Will continue to closely follow this extremely complex case with you.
[2016-10-23] MEDS: Furosemide 10 mg/mL 4 mL Inj IVPUSH SCH (08:14)
[2016-10-23] MEDS: Famotidine Inj 50 ML IV SCH (08:35)
--- NOTE | 2016-10-23 08:37 | DRSVH ---
PROCEDURE: X-RAY CHEST ONE VIEW, PORTABLE ([id number]) INDICATIONS: intubated. fluid overload? TECHNIQUE: One view of the chest was acquired. COMPARISON: 10/22/2016 FINDINGS: Surgical changes and devices: A right IJ central venous catheter with tip projecting over the right a trium, nasogastric tube with tip below the diaphragm, endotracheal tip above the lizeth and the fibul ar pads in place. Lungs and pleura: No pleural effusions or pneumothorax. There is bibasilar consolidation with air br onchograms left greater than right, compatible with pneumonia/aspiration. Mediastinum: Mediastinal contours appear normal. Heart size is normal. Bones and chest wall: No suspicious bony lesions. Overlying soft tissues appear unremarkable. IMPRESSION: 1. Support tubes in place. 2. Bilateral lower lobe consolidation appears more prominent than on last exam, increasing pneumonia versus aspiration. Dictated by: Antonio Rivera M.D. on 10/23/2016 at 8:33 Approved by: Antonio Rivera M.D. on 10/23/2016 at 8:35
[2016-10-23] MEDS: Meropenem Inj 2,000 MG in 0.9% Sodium Chloride 100 ML IV SCH ×2 (09:14→20:30)
[2016-10-23] MEDS: Thiamine Inj 200 MG in Dextrose 5% 50 ML IV SCH (09:14)
--- NOTE | 2016-10-23 09:22 | NUR ---
Social Work Note: Screen Note Data& Assessment: EMR Reviewed. Cori Dewitt is a 61 year old female admitted on 10/20/2016 or severe acidosis and respiratory distress. Pt remains on the vent. Per MD pt has poor prognosis. ID MD is following. Palliative care is following. Pt has [employer] insurance coverage and sees Brannon Fournier MD for primary care. Francoise, pt [employer] CM called and is able to assist with any D/C planning needs if appropriate ([phone]). SW to continue to follow for MD orders, pt needs and prognosis. Plan: Pt remains on the vent. SW to continue to follow for MD orders, pt needs and prognosis. FAITH Flores
[2016-10-23] MEDS: fentaNYL 2,500 mCg/250 mL 2,500 MCG in IV Premix 1 EACH IV PRN (10:20)
--- NOTE | 2016-10-23 10:21 | NUR ---
NUTRITION FOLLOW-UP: Assess: 61 YO F admitted to CCU for severe acidosis, respiratory distress, pancreatitis, and sepsis. Pt currently intubated. Pt has been NPO X 3 days. Nimbex was started 10/22 to help control respiratory status. Palliative care is following. Received verbal to start trophic TF this am. Pt has not had a BM since admit. PMHX: COPD, OA, osteoporosis, depression, bipolar, hep C treated w/ antiviral therapy, hx IV drug abuse. DIET: NPO x3 LABS: CO2 13, Bun 52, tool marker 2.66, glu 185, ca 8.2, alb 2.8, lipase 169 MEDICATIONS: Reviewed. Fentanyl, Propofol currently running at 32.3ml/hr providing 852.7kcal/day, nimbex, norepinephrine, lasix GI: No BM noted. SKIN: Leg cellulitis/edema in LE ANTHROPOMETRICS: Wt 155.8 kg, BMI 50.7 kg/m2, Admit wt: 154.9 kg, Adj. BW: 87.3kg, IBW:65.9kg ESTIMATED NEEDS: VENT/BMI/JOHN PAUL Calories: 4966-8571 kcal/day (20-22 kcal/kg Adj. BW) Protein: 100-120 g/day (1.5-1.8 g/kg IBW) NUTRITION DIAGNOSIS: 1) Inadequate oral intake related to decreased ability to consume sufficient energy as evidenced by NPO/Vent status. --PERSISTS INTERVENTION: 1) Received verbal order to start trophic TF this am in ccu rounds. Recommend start TF of Vital 1.5 @ 10ml/hr to provide 330kcal (1182kcal w/propofol) and 15g pro (60% kcal and 15% pro needs). Due to pt being on nimbex, recommend hold TF at trophic rate for at least 24hrs to monitor tolerance. 2) If TF is tolerated and able to be advanced, recommend advance TF by 10ml q 12 hrs until reach goal rate of 35ml to provide 1155kcal (2000kcal w/propofol) and 52g pro. 3) Adjust goal rate based on propofol 4) Once TF to goal rate, recommend addition of prosouce protein to better meet pt's protein needs. MONITOR/EVALUATE: NPO/Vent status, TF start/darwin, labs, wt, POC, GI/nutrition status. Follow per high nutrition risk guidelines.
[2016-10-23] MEDS: Propofol Inj 1,000,000 MCG in IV Premix 1 EACH IV SCH ×4 (11:26→20:39)
--- NOTE | 2016-10-23 12:06 | NUR ---
BROOKE: Patient remains in CCU and is currently on vent, BELL TIER is going to follow up with family or DPOA regarding BROOKE
[2016-10-23 12:49] LABS: Phosphorus 6.1 mg/dL (2.5-4.9)
[2016-10-23] MEDS ORDERED: EPINEPHrine 0.1 mg/mL 10 mL Syringe ONE (13:07)
[2016-10-23] MEDS ORDERED: Diltiazem 5 mg/mL 5 mL Inj ONE (13:07)
--- NOTE | 2016-10-23 14:15 | PCM.PNMED ---
Subjective Date of Service Oct 23, 2016 Subjective Overnight there were no acute events. She has been intubated and sedated in the ICU for 4 days now. The patient actually improved slightly overnight possibly due to the antibiotics , steroids and paralytic to help breathing. Patient is now in sinus rhythm. Her urine output improved to ~0.2 cc/kg/hr. Her brother is to come in for a family meeting today with Palliative care. Exam Vital Signs Vital Sign - Last Date Time Temp Pulse Resp B/P Pulse Ox O2 Delivery O2 Flow Rate FiO2 10/23/16 12:30 Ventilator 10/23/16 12:30 37.0 69 24 128/52 97 100 Intake and Output 10/22/16 10/22/16 10/23/16 Cumulative From/Thru 15:00 23:00 07:00 10/20/16 18:25 - 10/23/16 05:32 Intake Total 2633 ml 3013 ml 46011 ml Output Total 600 ml 800 ml 3725 ml Balance 2033 ml 2213 ml 9277 ml Intake IV Total 2633 ml 3013 ml 60115 ml Output Urine Total 475 ml 700 ml 3200 ml Gastric Drainage Total 125 ml 100 ml 525 ml # Bowel Movements 0 0 0 Exam General: Intubated and Sedated. No eye opening to voice this morning. HEENT: NCAT. PERRLA. Anicteric sclerae, moist conjunctivae. Neck: No JVD, No lymphadenopathy or thyromegaly. Cardiovascular: Tachycardic, irregular rhythm No murmurs/rubs. Pulmonary: On ventilator. Diffuse crackles, worse in the lung bases. No wheezing. Abdomen: Obese, distended. Bowel sounds faint but present. No masses noted. : Tenorio catheter in place. Scant output. Extremities: LE edema equal bilaterally, erythema has mostly resolved. There is some skin sloughing on the posterior left LE with slight weeping fluid. Neurological: Sedated. unable to evaluate Psychiatric: Sedated, unable to evaluate. IVs and Medications Medications Reviewed: Medications were reviewed in detail Lab and Diagnostics Result Diagram: 10/23/16 0435 10/23/16 1200 X-Rays, CTs and MRIs Chest XR 10/22 IMPRESSION: Slightly improved aeration of the left lung base. Otherwise unchanged. Dictated by: Katina Vela M.D. on 10/22/2016 at 8:27 Approved by: Katina Vela M.D. on 10/22/2016 at 8:27 Abd US IMPRESSION: Gallstone within the gallbladder lumen, without gallbladder wall thickening. Slight amount of adjacent pericholecystic free fluid. Hepatomegaly , fatty infiltration throughout the liver. Slight amount of free fluid deep within the pelvis, not safe for ultrasound guided paracentesis. Poor visualization of significant portions of the retroperitoneum due to overlying bowel gas. X-ray from [facility] reveals new left basilar infiltrate. An improved right basilar atelectasis. Done on 10/19/16. CT abdomen pelvis without contrast performed on 10/19/16 showing cholelithiasis, pancreatitis, small amount of ascites, diverticulosis, appendectomy and hysterectomy. Cardiac Echo Impressions Echo 10/21 Technically difficult study. The left ventricle is grossly normal size with hyperdynamic function. The ejection fraction is estimated to be 65-70%. Mildly dilated left atrium. No obvious valvular abnormality. Right ventricular systolic pressure is estimated to be 35 mmHg plus the clinically estimated CVP which cannot be estimated on this exam Additional Diagnostics DateTimeAnalyzed 17:46:48 -_ pH ____7.135 - 7.350 7.450 pCO2 ___49.4__ -mmHg 35.0 45.0 pO2 143 -mmHg 70.0 100 HCO3- ___16.6__ -mmol/L 22.0 26.0 Assessment & Plan Patient is a 61-year-old female with medical history significant for COPD, hypertension, bipolar/depression, and morbidly obese presented with severe pancreatitis, intubated for airway protection, and possibly developing ARDS. ICU day 4. Anion gap metabolic acidosis, present on admission, acute. - Likely due to JOHN PAUL, sepsis and concomitant respiratory acidosis - Salicylates negative, methyl alcohol, lactic acid negative - Ethylene glycol still pending - Sodium Acetate drip per ICU team - Ventilation has been difficult on this patient; she was given Nimbex to assist in ventilation, wean vent settings per ICU team Atrial Fibrillation with RVR, not present on admision, acute. Resolved. - Patient converted to NSR with HR 80-90 - Continue Diltiazem drip for rate control per ICU team to prevent recurrence - [id number] score is 2 (female 1, HTN 1); patient is currently on Lovenox prophylactically Pancreatitis, present on admission, acute. Ongoing. - Source currently unclear. Possible gallstones pathology, or less likely drug/ toxin induced. - US abdomen ordered, gallstone present but no conclusive evidence; consider GI consult for possible MRCP depending on goals of care - Fluids stopped as patient seemed to be overloaded, received 7.3L fluid - Continue Fentyl drip for pain (Will discuss with critical care for possible titration down to help with increase in blood pressure) - NG tube in place, start trough feeding 10/23 Metabolic encephalopathy, present on admission, acute. Ongoing. - Intubated for airway protection - possible ARDS or air trapping due to severe COPD. - Echocardiogram as above - Continue Duoneb plus Pulmocort to promote airway patency - Arterial line for continuous ABG's - Ventilation as above Severe Sepsis, present on admission, acute. Improving. - Patient met SIRS criteria, likely source cellulitis of LE - Fluids stopped as above - Norepi weaned down per ICU team - Blood, urine cultures continue to be negative - Infectious Disease will continue antibiotics at this time: Meropenem 2g q12 hours Daptomycin q48 hours Clindamycin q8 hours - Palliative care will meet with family 10/23 to discuss goals of care Cellulitis, present on admission, acute. Ongoing. - Bilateral LE erythematous and warm, reportedly worse with recent pedicure and "diabetic exfoliation scrubs" 3 days ago - Clinically, the redness has retreated but there is skin sloughing of her left LE - Antibiotic change as above - CT head/chest/abd/pelvis ordered to assess possibility of abscess Acute on Chronic Kidney Injury, present on admission. Improving. - Likely secondary to sepsis - Creatinine down to 2.5 on 10/23 - Urine output increased overnight to ~0.2cc/kg/hr - Avoid nephrotoxic medications as necessary Acetaminophen for mild pain, fever, headache when necessary. Bowel regimen Senna and MiraLAX scheduled as necessary. Zofran when necessary for nausea and vomiting. Sub-Q Lovenox every 12 hours. SCD's contraindicated due to LE cellulitis. Disposition: The patient will likely be here throughout the week depending on her response to fluid resuscitation, antibiotics, and other medical interventions. VTE Prophylaxis: Sub-Q Enoxaparin VTE Mechanical Devices: Intermittant Pneumatic CD Resuscitation Status: CPR: Attempt Resuscitation Attending Statement The patient was seen and examined together with Dr. Castillo on 10/23/16 and I have added additional information to the note above. Sadi Castillo DO Oct 23, 2016 14:15 Rosa M Abbasi DO Oct 30, 2016 13:23 subsequent hemodynamic depression - Decrease FiO2 to 80% - Continue with sedation and paralytics - ABG as needed - CRX in the am COPD exacerbation - History of cigarette smoke, currently weed on a daily basis - Continue ipratropium and Pulmicort - Solu-Medrol 60 mg every 8 hours Infectious Cellulitis of the left lower leg, improving - ASO negative, cultures negative thus far. - Antibiotic regiment meropenem, clindamycin, daptomycin per Dr. Hardin - Concerns for possible abscesses, lewis CT scan ordered Hemodynamics Distributed shock, improving - Possible sepsis, less likely pancreatitis - Maintaining MAP, decreasing needs for levophed, and urine output up. - [place] readings SVV low, suggestive of perhaps fluid replete, edging toward overload - Decreased fluid intake, maintain map>65. Proximal atrial fibrillation, resolved - Currently normal sinus, some concern for recurrence given acidotic state - Continue Cardizem drip Hematology Leukocytosis with mild bands - Possible infectious cause in addition to steroid use - Lewis scan CT as above Normocytic anemia - Hemoglobin 9.1 - Monitor, transfuse if hemoglobin less than 7 DVT prophylaxis - Lovenox subcutaneous Alimentary Pancreatitis - Continue IV pain medication and hydration - Start trophic feeding - Trend lipase in the setting of pancreatitis GI prophylaxis - Famotidine Neurologic - Intubated, sedated, paralyzed - Consider sedation holiday once Nimbex off Total time spent 1.5 hour VTE Prophylaxis: Sub-Q Enoxaparin VTE Mechanical Devices: Intermittant Pneumatic CD Resuscitation Status: CPR: Attempt Resuscitation Sadi Castillo DO Oct 23, 2016 14:15 GI prophylaxis - Famotidine Neurologic - Intubated, sedated, paralyzed - Consider sedation holiday once Nimbex off Total time spent 1.5 hour VTE Prophylaxis: Sub-Q Enoxaparin VTE Mechanical Devices: Intermittant Pneumatic CD Resuscitation Status: CPR: Attempt Resuscitation Sadi Castillo DO Oct 23, 2016 14:15
--- NOTE | 2016-10-23 14:27 | NUR ---
CT Pt left CCU room #[address] for head/ABD/and Pelvic CT. Pt left with RT and paleontology team. Pt tolerated well. Returned from CT at 1415, pt stable. Pt went from SR to Afib at 1230. Labs sent. Sputum sample sent this am. Tenorio draining freely, Lasix given 900cc out by 1430. Vent 90% 02/04/ with Spo2 93% Tube feed ordered to start at trickle. No BM. Family arrived. spoke in family room with son and brother.
--- NOTE | 2016-10-23 14:43 | DRSVH ---
PROCEDURE: CT CHEST, ABDOMEN AND PELVIS WITHOUT CONTRAST ([id number]) INDICATIONS: sespsi shock, abscess? TECHNIQUE: After the administration of oral contrast, 5 mm thick sections acquired from the lung apices to the s ymphysis pubis. 5 mm thick coronal and sagittal reformats acquired, with additional 7 mm coronal MIP reformats through the lungs. For radiation dose reduction, the following was used: automated expos ure control, adjustment of mA and/or kV according to patient size. COMPARISON: None. FINDINGS: Image quality: Breathing motion artifact somewhat limits evaluation CHEST: Lungs and pleura: The patient is intubated. Dense consolidation is present in the dependent lungs nannette aterally with air bronchograms present. There are small bilateral low density pleural effusions. No p neumothorax. There is interlobular septal thickening at the apices suggesting a component of pulmonar y edema. There is likely mild apical centrilobular emphysema. No acute pulmonary opacities. No pleur al effusions or pneumothorax. Central and peripheral airways are patent are normal in caliber. Mediastinum: Heart size is enlarged. No pericardial effusion. No mediastinal adenopathy by CT size criteria. Thoracic aorta and central pulmonary arteries are normal in size. Esophagus is normal in caliber. No hiatal hernia. An NG tube is present with the tip in the gastric fundus. Chest wall: No axillary or supraclavicular adenopathy by size criteria. Thyroid gland is not visual ized. ABDOMEN: Solid organs: Liver and spleen are normal in size. Trace low-density free perihepatic and perispleni c fluid is present. Gallbladder is mildly distended. Punctate gallstones are layered in the fundus. No gallbladder wall thickening. The pancreas has an edematous appearance with surrounding peripancrea tic fat stranding. No adrenal nodules. Both kidneys are normal in size, without hydronephrosis or n ephrolithiasis. Peritoneum and bowel: Small and large bowel loops are normal in caliber and wall thickness. The appe ndix is not visualized; however surgical clips are present in the region of the cecum in the lower qu adrant suggesting prior appendectomy. There are scattered sigmoid diverticula. No evidence for acute diverticulitis. No free fluid or air. Nodes and vessels: No retroperitoneal or mesenteric adenopathy by size criteria. Aorta and inferior vena cava are normal in size. There are scattered atheromatous calcifications throughout the aorta and iliac arteries bilaterally. Miscellaneous: No ventral hernias. PELVIS: Genitourinary: Bladder wall thickness is normal. A Tenorio catheter is present. Miscellaneous: No inguinal hernias or adenopathy. There is a small amount of low-density free pelvic fluid. Bones: No suspicious bony lesions. No vertebral body compression fractures. IMPRESSION: 1. Dense bibasilar pulmonary consolidation with small pleural effusion suspicious for aspiration/infe ction. 2. Small amount of intra-abdominal ascites. 3. Cholelithiasis. No definite cholecystitis; however study is limited given the lack of intravenous contrast. 4. Edematous appearance to the pancreas with peripancreatic fluid. It is unclear whether this is seco ndary to generalized ascites or may represent acute pancreatitis. Please correlate with laboratory va maryann. 5. Diverticulosis. No acute diverticulitis. Dictated by: Katina Vela M.D. on 10/23/2016 at 14:09 Approved by: Katina Vela M.D. on 10/23/2016 at 14:40
--- NOTE | 2016-10-23 14:48 | DRSVH ---
PROCEDURE: CT BRAIN WITHOUT CONTRAST ([id number]) INDICATIONS: ALTERED MENTAL STATUS/SEPTIC/UNKNOWN SOURCE TECHNIQUE: Noncontrast 4.5 mm thick angled axial sections acquired from the foramen magnum to the vertex, with c oronal reformats. COMPARISON: None. FINDINGS: Image quality: Excellent. CSF spaces: Basal cisterns are patent. No extra-axial fluid collections. Ventricles are normal in size and shape. Brain: No midline shift. No intracranial masses or hemorrhage. Beltran-white matter interface is norm al. Skull and face: Calvarium and visualized facial bones are intact, without suspicious lesions. Sinuses: The left sphenoid sinuses partially fluid-filled and mucosal thickening is present within t he ethmoid air cells. Visualized sinuses are otherwise clear. The right mastoid air cells are complet dax fluid filled than the left mastoid air cells are partially fluid filled. IMPRESSION: 1. No acute intracranial findings. 2. Mucosal thickening of the paranasal sinuses and fluid within the mastoid air cells. This may be as sociated with intubation; however mastoiditis also be considered in the differential. Dictated by: Katina Vela M.D. on 10/23/2016 at 14:41 Approved by: Katina Vela M.D. on 10/23/2016 at 14:46
--- NOTE | 2016-10-23 15:06 | DRSVH ---
PROCEDURE: CT FEMUR RIGHT W/O CONTRAST ([id number]) INDICATIONS: sespsi shock, abscess? TECHNIQUE: Noncontrast 3 mm axial sections acquired of the right femur, with coronal and sagittal reformats. Fo r radiation dose reduction, the following was used: automated exposure control, adjustment of mA and /or kV according to patient size. COMPARISON: None. FINDINGS: Image quality: Excellent. Bones: Visualized osseous structures demonstrate no fracture or subluxation. No discrete bony erosio ns or periosteal reaction. No hip joint effusion. There is a small right knee joint effusion. Soft tissues: Evaluation is limited in the absence of intravenous contrast. There is subcutaneous ed larissa demonstrated within the visualized right lower extremity likely reflecting cellulitis. No discre te fluid collection to suggest an abscess. There is an intramuscular lipoma demonstrated within the right adductor compartment. There is a small amount of intraperitoneal free fluid within the visuali zed pelvis. There is a Tenorio catheter within a partially distended urinary bladder. Colonic diverti culosis is noted. IMPRESSION: 1. No definite abscess identified in the right lower extremity with evaluation slightly limited by a bsence of intravenous contrast. 2. Subcutaneous edema in the right lower extremity likely reflecting cellulitis. 3. No CT evidence of osteomyelitis. Dictated by: Bahman Lazaro M.D. on 10/23/2016 at 14:59 Approved by: Bahman Lazaro M.D. on 10/23/2016 at 15:04
--- NOTE | 2016-10-23 15:15 | DRSVH ---
PROCEDURE: CT FEMUR LEFT W/O CONTRAST ([id number]) INDICATIONS: Septic shock and bilateral thigh erythema. Evaluate for possible abscess. TECHNIQUE: Noncontrast 3 mm axial sections acquired of the left femur, with coronal and sagittal reformats. For radiation dose reduction, the following was used: automated exposure control, adjustment of mA and/ or kV according to patient size. COMPARISON: [facility], CT, CT FEMUR RT WO CON, 10/23/2016, 13:34. FINDINGS: Image quality: Excellent. Bones: No fractures or dislocations. No discrete bony erosions or periosteal reaction. No hip joint effusion. There is a small left knee joint effusion. There is a mild lateral tilt and shift of the patella noted. Soft tissues: There is subcutaneous edema within the left lower extremity with an anterolateral predo minance. The edema also extends to the anterolateral fracture of the thigh. No discrete fluid colle ction is identified to suggest an abscess but evaluation is limited in the absence of intravenous con trast. No soft tissue gas. IMPRESSION: 1. No definite abscess identified in the absence of intravenous contrast. 2. Significant edema like reflecting cellulitis with extension to the superficial fascia raising the possibility of fasciitis. No soft tissue gas identified. 3. No CT evidence of osteomyelitis. Dictated by: Bahman Lazaro M.D. on 10/23/2016 at 15:04 Approved by: Bahman Lazaro M.D. on 10/23/2016 at 15:14
--- NOTE | 2016-10-23 16:48 | ABG ---
DateTimeAnalyzed 16:42:00 -_ pH ____7.187 - 7.350 7.450 pCO2 ___44.7__ -mmHg 35.0 45.0 pO2 ___61.6__ -mmHg 69.0 116 HCO3- ___16.3__ -mmol/L 22.0 26.0 ABE __-11.0__ -mmol/L -2.0 2.0 tHb ____9.3__ -g/dL O2Hb ___87.1__ -% COHb ____1.6__ -% MetHb ____0.0__ -% sO2 ___88.3__ -% FIO2 ___90.0__ -% PRVC 400 - PEEP ___10.0__ -cmH2O Set_RR ___24.0__ -b/min Vt __399.0__ -L Drawn By jmw - Date/Time Notified____ 16:48:00 -_ Spontaneous_RR ___24.0__ -b/min Oxygen Device 1 VENTILATOR - Notified By jmw - Notified Whom DR KENDREGEN - B 758 -mmHg tO2 ___11.4__ -Vol% OrderingPhysicianInitials bak - Ruben test N/A -
--- NOTE | 2016-10-23 16:50 | DRSVH ---
PROCEDURE: CT NECK SOFT TISSUES WITHOUT CONTRAST ([id number]) INDICATIONS: sepsis, shock, abscess? TECHNIQUE: Non-contrast 3.0 mm axial sections acquired from the sella to the aortic arch. Additiona l oblique axial 3.0 mm sections acquired through the pharynx. 3 mm thick coronal reformats were gene rated. For radiation dose reduction, the following was used: automated exposure control. COMPARISON: [facility], CT, CT CHEST ABD PELVIS WO CON, 10/23/2016, 13:34. FINDINGS: Image quality: Excellent. Lymph nodes: No enlarged lymph nodes seen throughout the neck. Vessels: Non-opacified vessels appear normal in caliber. Neck spaces: The oropharynx, nasopharynx, and pharynx demonstrate no mucosal lesions. The vocal cor ds, false vocal cords, pyriform sinuses, epiglottis, vallecula, and tongue base all appear normal. E xtramucosal spaces appear unremarkable. Glands: The parotid and submandibular glands appear normal, without stones. Thyroid gland is unrema rkable. Miscellaneous: Visualized brain and orbits appear normal. Lung apices demonstrate mild left effusio n. Superficial soft tissues demonstrate small focus of air within the right inferior neck soft tissue s at the level of the clavicle, along the tract of the right venous catheter.. No surrounding fluid c ollection is identified. Endotracheal tube is noted to be just superior to the level of the lizeth. IMPRESSION: 1. Partially visualized fluid within the left lung. 2. No visualized abscess. Dictated by: Ailyn Day M.D. on 10/23/2016 at 16:43 Approved by: Ailyn Day M.D. on 10/23/2016 at 16:48
--- NOTE | 2016-10-23 16:54 | PCM.CONPAL ---
Date of Service Oct 23, 2016 Date of Hospital Admission: Oct 20, 2016 at 17:43 Date of Palliative Consult: Oct 23, 2016 Requesting Provider: Khris Ford MD Reason Palliative Care Consult: Goals of Care Discussion Hospital Unit @time of consult: Critical Care Palliative Care Recommendation Summary of palliative recommendations: -Symptom management (Pain/other) Dyspnea-managed on vent with evidence of pneumonia and continued respiratory failure Hypotension- improving Acidosis persisting- metabolic and respiratory. Profound debility -DPOA/Advanced Directives/POLST-family request DNR on her behalf--this is a change. -Family/emotional support--extremely supportive family -Spiritual support-family nor pt interested in this Family conference with decision to continue with aggressive care up to but not including CPR. OK to remain on vent for now but to re-address this in the next couple of days. Her son, ASIF and brother request a review if she shows signs of any deterioration for another review of goals with consideration at that time to possibly withdraw support.. Additional Medical Diagnoses with primary management by Hospitalist team include : Pancreatitis Nutrition Respiratory support for respir failure Sepsis picture with increasing leukocytosis and acidosis and hypotension etc. ARF on CRF Problems: End of Life Preferences now DNR--still intubated but family requests short term only Disposition TBD Resuscitation Status Resuscitation Status: DNR/DNI:Do Not Resuscitate/Intubate Limited Interventions: Intubation w Mech Vent, Medications and IV Fluid POLST Updates/Changes Previous POLST?: No POLST Discussed with: Health Care Agent (DPO[employer]) (son) . Advanced Care Planning Address: Code status change Pt History History of Present Illness PALLIATIVE CONSULT Reason for consult- review goals of care Consulting provider- Dr. Khris Ford PCP Dr. Fournier Hx is obtained from chart and his son Evens and his brother Daniel. Conference with Evens and his , Daniel, 2 [facility]- [facility] and Linneus and a partner of 1 granddaughter. Hospital team- Dr. Ford, Dr. Andrei Parker, Dr. Bill Raman, Dr Angi Roland -palliative 61 yo patient who is new to our system but has had a few hospitalizations at [facility] last in 06/2016 for pneumonia/COPD/cellulitis. She has known severe COPD, is O2 dependent at home for the past year+ and has had progressive worsening of sx over the past year but particularly since June. She has lived with her son Evens for 10 yrs and her son has watched the progression of her debility. Over the past 6 months she can barely walk 15-20 feet without gasping and having to rest. She apparently has gained significant weight over this time and has chronic severe edema. the family was aware of some renal dysfunction. She had commented to her family that she didn't want to but that she felt she was "at the end of her rope" She became very SOB and was not able to complete a sentence at home and her family called 911-in ER she had progressive deterioration in her mental status and required intubation, fluids, pressors. She was transferred to [facility] ICU and remains on pressors-but lower and is still on 100% O2 and PEEP. She was dx on admission with acute pancreatitis and has had a rather severe metabolic acidosis with some respiratory component. She has been managed by ICU team and ID. She had cellulitis in her leg prior to this deterioration and had been on antibiotics. She is an exsmoker. ECHO done this admission notes hyperdynamic myocardium otherwise fairly benign and no evidence of RHF WBC has increased to 30K, HCO3 is 13, Cr is 2.66 and has been stable. ProBNPapprox 400, albumin is 2.8. Initial lipase 33K now down to 169 CT scan notes some ascites, evidence of pancreatitis, nannette effusions and nannette dependent pneumonia. She is sedated and on vent. Past Medical History Significant PMH Noted: PMH COPD Osteoarthritis and osteoporosis Depression and bipolar Hepatitis C successfully treated antiviral therapy Remote history of IV drug abuse morbid obesity hx recurrent cellulitis Surgical History Appendectomy Hysterectomy Family History Mother and father are both living in their 90s and are healthy. Social History Hx Alcohol Use: No Hx Substance Use: Yes (marijuana) Hx Tobacco Use: Yes Smoking Status: Former Smoker Social History Social Support: lives with her son Evens but was getting to need increasing care Spiritual Support Spiritual Support not interested as per her family Palliative Performance Scale PPS Patient Status: Baseline PPS Ambulation: Mainly Sit/Lie PPS Activity: Unable to do most activity PPS Self-Care: Considerable assistance required PPS Intake: Normal PPS Conscious Level: Full or confusion Performance Scale: 50% ADLs ADL Ambulation: Mainly Sit/Lie ADL Dressing: Occasional assistance necessary ADL Feeding: Full ADL Hygene/bathing: Considerable assistance required ADL Transfers: Considerable assistance required Allergy Allergies Reviewed: Yes Medications Current Medications: Current Medications Albuterol/ Ipratropium 3 ml 3 ml Q4 NEB Last administered on 10/22/16 04:48; Admin Dose 3 ML; Start 10/21/16 at 20:30; Stop 10/22/16 at 07:30; Status DC Norepinephrine/ Premix 250 ml @ 14.52 mls/ hr [id number] IV Last administered on 10:24; Admin Dose 14.52 MLS/HR; Start 10/22/16 at 03:45 Diltiazem HCl 20 mg 20 mg ONCE PRN IV Last administered on 10/22/16 07:42; Admin Dose 20 MG; Start 10/22/16 at 07:00; Stop 10/22/16 at 09:00; Status DC Diltiazem HCl 125 mg/Dextrose/Water 125 ml @ 5 mls/hr Q24H IV Last administered on 10/22/16 22:42; Admin Dose 5 MLS/HR; Start 10/22/16 at 07:00 Diltiazem HCl 125 mg/Sodium Chloride/ Miscellaneous 125 ml @ 5 mls/hr Q24H IV; Start 10/22/16 at 07:05; Status Cancel Cisatracurium Besylate/Sodium Chloride 200 ml @ 27.28 mls/ hr Q7H20M IV Last administered on 10/23/16 07:44; Admin Dose 27.28 MLS/HR; Start 10/22/16 at 07: 15 Furosemide 40 mg DAILY IVPUSH Last administered on 10/23/16 08:14; Admin Dose 40 MG; Start 10/22/16 at 08:30 Ipratropium Winifrede 0.5 mg Q4H NEB Last administered on 10/23/16 16:41; Admin Dose 0.5 MG; Start 10/22/16 at 07:30 Methylprednisolone Sodium Succinate 60 mg Q8 IVPUSH Last administered on 16:21; Admin Dose 60 MG; Start 10/22/16 at 08:30 Meropenem 2000 mg 2,000 mg Q12 IV; Start 10/22/16 at 08:30; Status Cancel Clindamycin Phosphate/ Dextrose 900 mg/ Premix 50 ml @ 100 mls/hr Q8 IV Last administered on 10/23/16 16:20; Admin Dose 100 MLS/HR; Start 10/22/16 at 08:30 Daptomycin 910 mg/ Sodium Chloride 50 ml @ 100 mls/hr Q48 IV; Start 10/22/16 at 08:30; Stop 10/22/16 at 08:30; Status DC Meropenem 2000 mg/ Sodium Chloride 100 ml @ 33.333 mls/ hr Q12 IV; Start at 08:30; Stop 10/22/16 at 08:30; Status DC Meropenem 2000 mg/ Sodium Chloride 100 ml @ 200 mls/hr Q12 IV Last administered on 10/23/16 09:14; Admin Dose 200 MLS/HR; Start 10/22/16 at 08:30 Daptomycin 900 mg/ Sodium Chloride 50 ml @ 100 mls/hr Q48 IV Last administered on 10/22/16 09:24; Admin Dose 100 MLS/HR; Start 10/22/16 at 08:30 Thiamine HCl 200 mg/Dextrose/Water 52 ml @ 104 mls/hr DAILY IV Last administered on 10/23/16 09:14; Admin Dose 104 MLS/HR; Start 10/22/16 at 13:50 Sodium Acetate/ Dextrose/Water 1,000 ml @ 100 mls/hr Q10H IV Last administered on 10/23/16 05:40; Admin Dose 100 MLS/HR; Start 10/22/16 at 17:30 Objective Findings Exam Vital Sign - Last Date Time Temp Pulse Resp B/P Pulse Ox O2 Delivery O2 Flow Rate FiO2 10/23/16 16:41 67 115/48 89 90 10/23/16 12:30 Ventilator 10/23/16 12:30 37.0 24 Intake and Output 10/22/16 10/22/16 10/23/16 Cumulative From/Thru 15:00 23:00 07:00 10/20/16 18:25 - 10/23/16 05:32 Intake Total 2633 ml 3013 ml 33877 ml Output Total 600 ml 800 ml 3725 ml Balance 2033 ml 2213 ml 9277 ml Intake IV Total 2633 ml 3013 ml 92130 ml Output Urine Total 475 ml 700 ml 3200 ml Gastric Drainage Total 125 ml 100 ml 525 ml # Bowel Movements 0 0 0 General: Chemically sedated Heart: Other (NSR alternates with AFIB) Lungs: Other (on vent) Extremities: Edema (4+ with red burn like denuding L post calf) Lab/Diagnostics Lab and Imaging results reviewed in detail in EMR. Patient/Family Conference Members Present Family Members Present see above Medical Team Members Present? see above Discussion/Goals of Care Discussion FAMILY UNDERSTANDING OF DISEASE: George players being son, DIL and brother all understand severity of her ds at baseline and now severity of ds with acute deterioration. They identify deteriorating health and poor quality of life. They recognize if she pulls out of this she will have another illness in short order with her debility and recent track record. They define she has maintained that she does not want to be maintained on a "machine" but her fear of dying has lead her to request full code. Her son recognizes conflicting goals and believes she would not want to be resuscitated at this point due to high likelihood of poor QOL going forward. DISEASE PROGRESSION/EVIDENCE OF DECLINE: Significant decline over past year but specifically past 6 months SYMPTOM BURDEN: Profound debility and dyspnea GOALS: Willing to continue with aggressive intervention up to CPR. They are not interested in emt intermediate vent management and would like this re-evaluated in a few days They do not think she can be managed at home even if she recovers from this if with same level of debility FAMILY WISHES/VALUES: Do you want to be told truth about his illness, even if unpleasant? Yes-with good understanding of issues Does family want to know prognosis when it can be predicted, to better guide treatment decisions? yes Palliative Care counselled: Time spent Total time 65 minutes; >50% face to face with patient and/or family, providing counselling regarding plans and recommendations, and in care coordination with his/her medical teams. Including chart review, family conference and review with hospitalist team. I also spent an additional 35 minutes counseling for advanced care planning with the patient/the patients family/the surrogate decision maker. Regarding change of code status and establishing limits in treatment copies to: Brannon Fournier MD, Deborah A MD Oct 23, 2016 16:54
[2016-10-24] VITALS (11 sets, daily range): BP systolic 101–146; BP diastolic 47–65; PULSE 58–67; RESP 24; O2SAT 90–99
[2016-10-24] MEDS: MethylprednisoLONE Sodium Succinate 40 mg/mL Inj IVPUSH SCH ×3 (00:09→17:23)
[2016-10-24] MEDS: Clindamycin Inj 900 MG in IV Premix 1 EACH IV SCH ×3 (00:10→17:23)
[2016-10-24] MEDS: Chlorhexidine 0.12% 15 mL Oral Solution MT SCH ×6 (00:10→20:27)
[2016-10-24] MEDS: Propofol Inj 1,000,000 MCG in IV Premix 1 EACH IV SCH ×7 (03:04→23:41)
[2016-10-24] MEDS: Cisatracurium Inj 200,000 MCG in 0.9% Sodium Chloride-Pha MIX 100 ML IV SCH ×3 (03:15→18:01)
[2016-10-24] MEDS: Ipratropium 0.02% 0.5 mg/2.5 mL Inhalation Solution NEB SCH ×5 (04:27→19:56)
--- NOTE | 2016-10-24 04:52 | ABG ---
DateTimeAnalyzed 04:42:00 -_ pH ____7.219 - 7.350 7.450 pCO2 ___43.1__ -mmHg 35.0 45.0 pO2 ___77.9__ -mmHg 69.0 116 HCO3- ___17.0__ -mmol/L 22.0 26.0 ABE ___-9.9__ -mmol/L -2.0 2.0 tHb ___10.7__ -g/dL O2Hb ___91.8__ -% COHb ____0.9__ -% MetHb ____0.7__ -% sO2 ___93.3__ -% FIO2 ___21.0__ -% PRVC 400 - PEEP ___12.0__ -cmH2O Set_RR ___24.0__ -b/min Vt __400.0__ -L Drawn By TLA - Date/Time Notified____ 04:51:00 -_ Spontaneous_RR ___24.0__ -b/min Oxygen Device 1 VENTILATOR - Notified By TLA - Notified Whom Herlickson-RN - B 758 -mmHg tO2 ___13.9__ -Vol% Ruben test N/A -
[2016-10-24 05:05] LABS: BASOPHILS % (AUTO) 0 % (0-3); EOSINOPHILS % (AUTO) 0 % (0-5); Mean Corpuscular Hemoglobin 29.7 pg (27.0-35.0); Mean Corpuscular Volume 93.1 fL (81-100); NEUTROPHILS % (AUTO) 91.6 % (40-74); Platelet Count 311 bil/L (150-400)
[2016-10-24] MEDS: Diltiazem 125 mg/125 mL D5W IV SCH ×2 (05:27)
[2016-10-24 05:41] LABS: Phosphorus 6.5 mg/dL (2.5-4.9)
--- NOTE | 2016-10-24 05:44 | NUR ---
Vent, sedation, pressors Vs as noted. Continues ventilated with sats mid 90s on 90% fio2 without desaturations. Propofol 35mcg/kg/min and Fentanyl 100mcg/h unchanged. Nimbex titrated down to 0.5mcg for TOF 0/4. Levophed titrated down from 0.15 to 0.1mcg/kg/min to keep Map >65. Right radial sharon in place with occasional positional wave form and blood pressures mostly 120s systolic.
[2016-10-24] MEDS: Budesonide 0.5 mg/2 mL Inhalation Solution NEB SCH ×2 (07:31→19:56)
--- NOTE | 2016-10-24 07:58 | PCM.PNMED ---
Subjective Date of Service Oct 24, 2016 Subjective Intensive care consultation Resident Jose Parker PGY3 and Dr. Ford Patient is a 61-year-old female with medical history significant for severe COPD initially showed up to [facility] with abdominal pain, obtunded, found to have metabolic acidosis and severe pancreatitis, ultimately intubated and transferred to [facility] ICU for further medical management. No overnight events, patient overall status improved since admission on 2016. Patient still sedated, intubated, and paralyzed. Pressor support significantly decrease since yesterday, Levophed at 0.1 from 0.85 2 days ago. Maintaining good map 70-75. She received quite a bit of fluids, total intake 5.3 L over the course of 24 hour. She has proximal atrial fibrillation and converted in and out of sinus rhythm. She is currently in sinus rhythm. Respiratory status without significant change, she required more oxygen since after we transferred her for the CT scan. Current vent settings tidal volume 400, respiratory rate 24, PEEP 12, FiO2 of 90%, we increase her PEEP from 10 yesterday. She has no significant compliance issue, though required quite a bit of pressures, Ppeak 39. No auto PEEP. ABG today pH 7.21, PCO2 4.3, P O2 77.9, calculated bicarbonate 17. Metabolic acidosis slightly improved from pH 7.[address] scan showed bilateral lower lobe consolidation. Chest x -ray today showed increase right lower lobe opacity. Abdominally, CT scan redemonstrated pancreatitis. There are no abscesses or significant extravasation of fluids. Labs lipase continue to trend down 133 today. Started on trophic feeding yesterday. No bowel movement. Kidney function slightly improved, creatinine trending downward to 2.2 from 2.5 yesterday. Patient's baseline creatinine is around 1.4. Makes good urine 2L over 24hrs. Her metabolic acidosis continued to improve. Anion gap remains 21. Per conversation with family yesterday, son Evens SARGENT changed code status to DO NOT RESUSCITATE. Exam Vital Signs Vital Sign - Last Date Time Temp Pulse Resp B/P Pulse Ox O2 Delivery O2 Flow Rate FiO2 10/24/16 04:30 59 120/59 95 10/24/16 04:00 36.0 24 10/24/16 04:00 Ventilator 10/24/16 00:00 90 Intake and Output 10/23/16 10/23/16 10/24/16 Cumulative From/Thru 15:00 23:00 07:00 10/20/16 18:25 - 10/24/16 05:41 Intake Total 2293 ml 2171 ml 04390 ml Output Total 1350 ml 1130 ml 6205 ml Balance 943 ml 1041 ml 85305 ml Intake IV Total 2293 ml 1993 ml 09699 ml Tube Feeding 118 ml 118 ml Tube Irrigant 60 ml 60 ml Output Urine Total 1300 ml 750 ml 5250 ml Gastric Drainage Total 50 ml 380 ml 955 ml # Bowel Movements 0 Exam General: intubated sedated. Morbidly obese, bed elevated to 30 head incline HEENT: Normocephalic, atraumatic. PERRLA, Anicteric sclerae, moist conjunctivae Neck: No JVD, No lymphadenopathy or thyromegaly. thicken neck , right central line in place Cardiovascular: Regular rate and rhythm, no murmur rub or gallop Pulmonary: b/l air sound diminished, no crackles or wheezes. Abdomen: quite bowel sound, no signs of retroperitoneal bleeding : Tenorio catheter in placed Extremities: No clubbing, cyanosis. b/l edema pitting up to the thighs, significantly worse and yesterday, left posterior lower leg wound on change in redness, right distal forearm radial arterial line in place Skin: lower legs, edematous, calor, erythema around the posterior lower leg, improved. Neurological: sedated, paralyzed. unable to evaluate Lab and Diagnostics Result Diagram: 10/24/16 0500 10/24/16 0500 X-Rays, CTs and MRIs Chest XR 10/22 IMPRESSION: Slightly improved aeration of the left lung base. Otherwise unchanged. Dictated by: Katina Vela M.D. on 10/22/2016 at 8:27 Approved by: Katina Vela M.D. on 10/22/2016 at 8:27 Abd US IMPRESSION: Gallstone within the gallbladder lumen, without gallbladder wall thickening. Slight amount of adjacent pericholecystic free fluid. Hepatomegaly , fatty infiltration throughout the liver. Slight amount of free fluid deep within the pelvis, not safe for ultrasound guided paracentesis. Poor visualization of significant portions of the retroperitoneum due to overlying bowel gas. X-ray from [facility] reveals new left basilar infiltrate. An improved right basilar atelectasis. Done on 10/19/16. CT abdomen pelvis without contrast performed on 10/19/16 showing cholelithiasis, pancreatitis, small amount of ascites, diverticulosis, appendectomy and hysterectomy. Cardiac Echo Impressions Echo 10/21 Technically difficult study. The left ventricle is grossly normal size with hyperdynamic function. The ejection fraction is estimated to be 65-70%. Mildly dilated left atrium. No obvious valvular abnormality. Right ventricular systolic pressure is estimated to be 35 mmHg plus the clinically estimated CVP which cannot be estimated on this exam Additional Diagnostics DateTimeAnalyzed 17:46:48 -_ pH ____7.135 - 7.350 7.450 pCO2 ___49.4__ -mmHg 35.0 45.0 pO2 143 -mmHg 70.0 100 HCO3- ___16.6__ -mmol/L 22.0 26.0 Assessment & Plan Patient is a 61-year-old female with medical history significant for severe COPD initially admitted for pancreatitis from [facility], status post intubation for decreased mentation, currently in ICU day 4. Problem list Respiratory Ventilation Dependent Respiratory failure - Still autopeep, though significantly better with Nimbex - RR set at 24, balancing the need to CO2 vs worsening autopeep w/ subsequent hemodynamic depression - Ween down O2 needs, current FIO2 90%, PEEP 12 - Ween down paralytics. Continue with sedation - ABG as needed - CRX in the am COPD exacerbation - History of cigarette smoke, currently weed on a daily basis - Continue ipratropium and Pulmicort - Solu-Medrol 60 mg every 8 hours day 3 Infectious Cellulitis of the left lower leg, improving - ASO negative, cultures negative thus far. - Antibiotic regiment meropenem, clindamycin, daptomycin per Dr. Hardin - Concerns for possible abscesses, lewis CT scan ordered Hemodynamics Distributed shock, improving - Possible sepsis, less likely pancreatitis - Decreased fluid intake, maintain map>65. - Weening down levophed, diurese today Paroxysmal atrial fibrillation, resolved - Currently normal sinus, some concern for recurrence given acidotic state - Continue Cardizem drip Hematology Leukocytosis - Possible infectious cause in addition to steroid use - Will trend, may start secondary workup Normocytic anemia - Hemoglobin 9.1 - Monitor, transfuse if hemoglobin less than 7 DVT prophylaxis - Lovenox subcutaneous Metabolic Anion gap metabolic acidosis - Negative ketones, lactic acids, normal osmolar gap - Likely a combination of respiratory acidosis and renal failure - Senior sodium acetate drip 75 mL/hour Acute on chronic kidney injury - Baseline creatinine 1.4, secondary to distributive shock, dehydration - Urine output increase - Monitor electrolyte Alimentary Pancreatitis - Continue IV pain medication and hydration - Start trophic feeding - Trend lipase in the setting of pancreatitis GI prophylaxis - Famotidine Neurologic - Intubated, sedated, paralyzed - Ween down nimbex as above - Consider sedation holiday once Nimbex off Total time spent 1.5 hour VTE Prophylaxis: Sub-Q Enoxaparin VTE Mechanical Devices: Intermittant Pneumatic CD Resuscitation Status: Limited Interventions (DO NOT RESUSCITATE) Limited Interventions: Intubation w Mech Vent, Medications and IV Fluid Jose Parker DO Oct 24, 2016 07:58
[2016-10-24] MEDS: Famotidine Inj 50 ML IV SCH (08:26)
--- NOTE | 2016-10-24 08:37 | PROG NOTE ---
[address] [address] PROGRESS NOTE PATIENT: MAYKEL MCDANIEL : 1955 MR#: [id number] ADMIT: 10/20/2016 JOB ID: [id number] DATE: 10/24/2016 INFECTIOUS DISEASE FOLLOW UP NOTE: REASON FOR FOLLOWUP: Shock and ventilatory dependent respiratory failure in a patient with underlying pancreatitis, COPD and possible septic shock. INTERVAL HISTORY: Overnight, the patient has remained critically ill, intubated and sedated on the ventilator. Her vasopressor requirements have decreased slightly to norepinephrine at 0.1, which is a substantial improvement from two days ago when it was 0.8 and yesterday when it was at a rate of 0.2. She remains on 90% FiO2 which is slightly better than yesterday's 100%. Her PEEP remains high at 12. The patient remains deeply sedated and is not responsive to questions. This case was discussed at the bedside with Dr. Ford of the ICU team as well as with the ICU nurse and appropriate CT scans were personally reviewed. PHYSICAL EXAMINATION: Reveals an intubated, sedated, nonresponsive woman. She has remained afebrile and at times has been hypothermic, today 35.4. Pulse 60 and sinus. Blood pressure 129/56, and as noted, the norepinephrine is being weaned. She is saturating reasonably well on 90% FiO2 and 12 of PEEP. Eyes without conjunctivitis. Pupils equal in mid range. Nose normal. Oral endotracheal tube, oral gastric tube in good position. Right central line benign appearing without evidence of inflammation. Lungs: Decreased flow bilaterally, scattered crackles. Cardiac tones: Regular rate and rhythm without new murmur. Abdomen: Obese, soft, and without obvious organomegaly. Tenorio catheter is present. Urine output 750 overnight. The lower extremities were carefully examined. The stasis dermatitis present on admission has basically resolved. The large area of denuded skin on the left posterior calf continues to slowly heal and does not appear infected. LABORATORIES: Include white count of 22,000 down from 30, still 90% segs. Creatinine 2.2 which is stable to slightly better. LFTs are normal. Albumin 2.6. Lipase down to 133, so basically normal at this point. The serologic studies include a mildly elevated streptozyme 206. Hep C quantitative viral load has come back 0. HIV negative. Micro studies basically negative to date including negative blood cultures, negative sputum, negative MRSA screen and yesterday's sputum that we had ordered, moderate polys, a few mixed miesha. IMAGING: Was done yesterday. Includes CT chest, abdomen and pelvis which I reviewed on the view screen. It shows dense bibasilar infiltrates with small amounts of pleural effusion, a small amount of abdominal ascites. Cholelithiasis is seen but no cholecystitis. There is an edematous appearance to the pancreas and diverticulosis without diverticulitis. IMPRESSION: This remains an extremely complex case of a woman who was admitted with what appeared to be severe pancreatitis and went on to develop refractory shock and ventilator dependent respiratory failure very rapidly. Whether or not there is some underlying degree of septic shock here remains unclear. We do not have likely sources though the CT appearance of the chest suggest the possibility of some bilateral pneumonia, but whether or not this is mainly atelectasis or represents true pneumonia is unclear. If this is pneumonia, it is likely to be an aspiration type event. It is also clear that she has some degree of pancreatitis based on her lipase at [place] and the imaging here. Whether or not an infection of her left posterior leg is playing a role remains unclear and will likely not be known. RECOMMENDATIONS: 1. This case discussed in detail with Dr. Ford. 2. Will keep the antibiotics as they are today as the patient seems to be slightly improving. 3. Will consider dropping at least the daptomycin tomorrow if there are no positive cultures forthcoming. 4. Will continue to monitor this extremely complex case with you.
[2016-10-24] MEDS: fentaNYL 2,500 mCg/250 mL 2,500 MCG in IV Premix 1 EACH IV PRN (08:56)
[2016-10-24] MEDS: Meropenem Inj 2,000 MG in 0.9% Sodium Chloride 100 ML IV SCH ×2 (09:02→20:27)
[2016-10-24] MEDS: SODIUM CHLORIDE 0.9% IV SCH (09:02)
[2016-10-24] MEDS: DAPTOMYCIN IV SCH (09:02)
[2016-10-24] MEDS: Thiamine Inj 200 MG in Dextrose 5% 50 ML IV SCH (09:02)
--- NOTE | 2016-10-24 09:34 | DRSVH ---
PROCEDURE: X-RAY CHEST ONE VIEW ([id number]) INDICATIONS: ET tube placement TECHNIQUE: One view of the chest was acquired. COMPARISON: [facility], CT, CT CHEST ABD PELVIS WO CON, 10/23/2016, 13:34. [facility], CR, XR CHEST 1VW (PORTABLE), 10/23/2016, 5:55. FINDINGS: Surgical changes and devices: Endotracheal tube, nasogastric tube and right-sided central venous cath eter unchanged. Endotracheal tube is approximately 42 mm to the lizeth. Lungs and pleura: Portions of the left lung are suboptimally evaluated secondary to pacer leads. The overall appearance of increased pulmonary vascularity. Bibasilar opacities are unchanged. Mediastinum: Mediastinal contours appear normal. Heart size is normal. Bones and chest wall: No suspicious bony lesions. Overlying soft tissues appear unremarkable. IMPRESSION: Stable interval exam demonstrating bibasilar opacities suggestive of pneumonia. Dictated by: Ailyn Day M.D. on 10/24/2016 at 9:29 Approved by: Ailyn Day M.D. on 10/24/2016 at 9:31
[2016-10-24] MEDS: Sodium Acetate Inj 150 MEQ in Dextrose 5% 1,000 ML IV SCH ×2 (11:53→23:41)
--- NOTE | 2016-10-24 11:53 | NUR ---
NUTRITION FOLLOW-UP: Assess: 61 YO F admitted to CCU for severe acidosis, respiratory distress, pancreatitis, and sepsis. Pt currently intubated. Nimbex was started 10/22 to help control respiratory status and continues on it today but plan is to ween down. Palliative care is following. Trophic TF was started 10/23. Pt had high residuals of ~300ml overnight, likely due to pt being on nimbex. 0 BM yet. TF to continue at trophic rate today. PMHX: COPD, OA, osteoporosis, depression, bipolar, hep C treated w/ antiviral therapy, hx IV drug abuse. DIET: NPO x3 LABS: CO2 17, Bun 53, pest control worker helper 2.20, glu 224, ca 8.3, phos 6.5, alb 2.6, lipase 133 MEDICATIONS: Reviewed. Fentanyl, Propofol currently running at 32.3ml/hr providing 852.7kcal/day, nimbex, norepinephrine, lasix GI: No BM noted. SKIN: Leg cellulitis/edema in LE NUTRITION SUPPORT: TF of Vital 1.5 @ 10ml/hr providing 330kcal (1182kcal w/propofol) and 15g pro (60% kcal and 15% pro needs). ANTHROPOMETRICS: Wt 157.3 kg, BMI 51.2kg/m2, Admit wt: 154.9 kg, Adj. BW: 87.3kg, IBW:65.9kg ESTIMATED NEEDS: VENT/BMI/JOHN PAUL Calories: 8000-6474 kcal/day (20-22 kcal/kg Adj. BW) Protein: 100-120 g/day (1.5-1.8 g/kg IBW) Fluids: ~2220-2660ml/day (25-30ml/kg adj bw) NUTRITION DIAGNOSIS: 1) Inadequate oral intake related to decreased ability to consume sufficient energy as evidenced by NPO/Vent status. --PERSISTS INTERVENTION: 1) Recommend continue TF of Vital 1.5 @ 10ml/hr to provide 330kcal (1182kcal w/propofol) and 15g pro (60% kcal and 15% pro needs). Due to pt being on nimbex, recommend hold TF at trophic rate for at least 24hrs to monitor tolerance. 2) If TF is tolerated and nimbex is stopped/decreased, recommend advance TF by 10ml q 12 hrs until reach goal rate of 35ml to provide 1155kcal (2000kcal w/propofol) and 52g pro. 3) Adjust goal rate based on propofol 4) Once TF to goal rate, recommend addition of prosouce protein to better meet pt's protein needs. 5) Recommend addition of scheduled bowel regimen as pt has not had a BM x4 days MONITOR/EVALUATE: NPO/Vent status, TF darwin, BM, labs, wt, POC, GI/nutrition status. Follow per high nutrition risk guidelines.
--- NOTE | 2016-10-24 14:24 | NUR ---
Social Work: Multidisciplinary Rounds Pt discussed in am rounds. Pt remains in CCU on vent. SW status remains unchanged. EMBEDDED SYSTEMS ENGINEER to continue to follow and will see pt to complete IA once medically stable. Ca Pisano MSW
--- NOTE | 2016-10-24 16:31 | ABG ---
DateTimeAnalyzed 16:23:07 -_ pH ____7.201 - 7.350 7.450 pCO2 ___53.0__ -mmHg 35.0 45.0 pO2 111 -mmHg 69.0 116 HCO3- ___20.8__ -mmol/L 22.0 26.0 ABE ___-6.6__ -mmol/L tHb ____9.1__ -g/dL O2Hb ___97.0__ -% COHb ____0.7__ -% 1.5 MetHb ____0.4__ -% sO2 ___98.1__ -% FIO2 ___90.0__ -% PRVC 400 - PEEP ___12.0__ -cmH2O Set_RR 24 -b/min Drawn By as - Date/Time Notified____ 16:30:00 -_ Spontaneous_RR 24 -b/min Oxygen Device 1 VENTILATOR - Notified By ams - Notified Whom Shraddha Watt, RN - K+ ____4.0__ -mmol/L tO2 ___12.6__ -Vol% Ruben test N/A -
--- NOTE | 2016-10-24 16:49 | PCM.PALLBR ---
Palliative Care Recommendation Summary of palliative recommendations: 10/24/16-Patient remains critically ill but 2 days of some improvement. CODE STATUS determined by family DO NOT RESUSCITATE. She remains intubated. Renal function and acidosis improving Again reviewed with family severity of lung disease and possibility of needing to make a decision regarding prolonged ventilation if she continues to improve. Family is comfortable with not escalating treatment further if she deteriorates We will continue to follow patient in ICU. -Symptom management (Pain/other) Dyspnea-managed on vent with evidence of pneumonia and continued respiratory failure Hypotension- improving Acidosis persisting- metabolic and respiratory. Profound debility -DPOA/Advanced Directives/POLST-family request DNR on her behalf--this is a change. -Family/emotional support--extremely supportive family -Spiritual support-family nor pt interested in this Family conference with decision to continue with aggressive care up to but not including CPR. OK to remain on vent for now but to re-address this in the next couple of days. Her son, DIL and brother request a review if she shows signs of any deterioration for another review of goals with consideration at that time to possibly withdraw support.. Additional Medical Diagnoses with primary management by Hospitalist team include : Pancreatitis Nutrition Respiratory support for respir failure Sepsis picture with increasing leukocytosis and acidosis and hypotension etc. ARF on CRF Problems: End of Life Preferences now DNR--still intubated but family requests short term only Disposition TBD Resuscitation Status Resuscitation Status: Limited Interventions (DO NOT RESUSCITATE) Limited Interventions: Intubation w Mech Vent, Medications and IV Fluid POLST Updates/Changes Previous POLST?: No POLST Discussed with: Health Care Agent (DPOAHC) (son) Total time 35 minutes; >50% face to face with patient and/or family, providing counselling regarding plans and recommendations, and in care coordination with his/her medical teams. I also spent an additional [ ] minutes counseling for advanced care planning with the patient/the patients family/the surrogate decision maker. copies to: Brannon Fournier MD Palliative Brief Note Date of Service Oct 24, 2016 . 61 yo with severe COPD, morbid obesity, respiratory failure with shock picture barely stabilizing. Chart and labs reviewed, reviewed with hospitalist team and spoke with family at bedside. Pt is chemically sedated, still requiring 90% O2 and PEEP-intubated. Pressors at a minimum. Having bouts of PAF WBC now back down to 22K, HCO3 at 17,CR 2.2- improving CT again reviewed- pneumonia, pancreatitis Fe Roland MD Oct 24, 2016 16:49
--- NOTE | 2016-10-24 17:32 | NUR ---
Titration Titrated Levophed to 0.02mcg/kg/min by 1100 with MAP >65 and WL=736/50. Nimbex turned off at 1400. Spontaneous and but not purposeful movement. Opened eyes once but not following verbal commands.Bitting down on tube. Nimbex resumed at 1600 with a 3ml bolus per . Levophed increased to 0.04mcg r/t 80's/40's. BP now stable will continue to attempt titration. Vent at 90% 04/06/400 and Spo2 98% Tenorio ouzadi=062rf shikha urine and a total of 2050cc IV intake. No BM. ABG's ordered.
--- NOTE | 2016-10-24 18:27 | PCM.PNMED ---
Subjective Date of Service Oct 24, 2016 Subjective The patient remains intubated and sedated. ICU day 5. The patient is continuing to improve. She has been titrated down off her Norepinephrine (0.85 to 0.1) and maintaining pressure. She has not reentered atrial fibrillation. Her acidosis has improved with a pH of 7.22, but her oxygen requirements have decreased to 90%. Kidney function is slowly trending downward, Cr 2.2 at this time. Her imaging showed no abscess formation or any fluid build up. She was started on trophic feeds 10/23. Exam Vital Signs Vital Sign - Last Date Time Temp Pulse Resp B/P Pulse Ox O2 Delivery O2 Flow Rate FiO2 10/24/16 16:32 36.0 67 24 103/47 98 Mechanical Ventilator 90 Intake and Output 10/23/16 10/23/16 10/24/16 Cumulative From/Thru 15:00 23:00 07:00 10/20/16 18:25 - 10/24/16 05:41 Intake Total 2293 ml 2171 ml 59196 ml Output Total 1350 ml 1130 ml 6205 ml Balance 943 ml 1041 ml 55272 ml Intake IV Total 2293 ml 1993 ml 40111 ml Tube Feeding 118 ml 118 ml Tube Irrigant 60 ml 60 ml Output Urine Total 1300 ml 750 ml 5250 ml Gastric Drainage Total 50 ml 380 ml 955 ml # Bowel Movements 0 Exam General: Intubated and Sedated morbidly obese female. Head of bed is elevated to 30 degrees. HEENT: NCAT. PERRLA. Anicteric sclerae, moist conjunctivae. NG tube present. Neck: No JVD, No lymphadenopathy or thyromegaly. Cardiovascular: RRR. No murmurs/rubs. Pulmonary: On ventilator. Diffuse crackles, worse in the lung bases. No wheezing. Abdomen: Obese, distended. Bowel sounds faint but present. No masses noted. : Tenorio catheter in place. 750 ml output. Extremities: LE edema equal bilaterally, erythema has mostly resolved. There is some skin sloughing on the posterior left LE with slight weeping fluid but no erythema. Neurological: Sedated. unable to evaluate Psychiatric: Sedated, unable to evaluate. IVs and Medications Medications Reviewed: Medications were reviewed in detail Lab and Diagnostics Result Diagram: 10/24/16 0500 10/24/16 0500 X-Rays, CTs and MRIs CXR 10/24 IMPRESSION: Stable interval exam demonstrating bibasilar opacities suggestive of pneumonia. Dictated by: Ailyn Day M.D. on 10/24/2016 at 9:29 Approved by: Ailyn Day M.D. on 10/24/2016 at 9:31 CT Chest/Abd/Pelv 10/23 IMPRESSION: 1. Dense bibasilar pulmonary consolidation with small pleural effusion suspicious for aspiration/infection. 2. Small amount of intra-abdominal ascites. 3. Cholelithiasis. No definite cholecystitis; however study is limited given the lack of intravenous contrast. 4. Edematous appearance to the pancreas with peripancreatic fluid. It is unclear whether this is secondary to generalized ascites or may represent acute pancreatitis. Please correlate with laboratory values. 5. Diverticulosis. No acute diverticulitis. Dictated by: Katina Vela M.D. on 10/23/2016 at 14:09 Approved by: Katina Vela M.D. on 10/23/2016 at 14:40 Chest XR 10/22 IMPRESSION: Slightly improved aeration of the left lung base. Otherwise unchanged. Dictated by: Katina Vela M.D. on 10/22/2016 at 8:27 Approved by: Katina Vela M.D. on 10/22/2016 at 8:27 Abd US IMPRESSION: Gallstone within the gallbladder lumen, without gallbladder wall thickening. Slight amount of adjacent pericholecystic free fluid. Hepatomegaly , fatty infiltration throughout the liver. Slight amount of free fluid deep within the pelvis, not safe for ultrasound guided paracentesis. Poor visualization of significant portions of the retroperitoneum due to overlying bowel gas. X-ray from [facility] reveals new left basilar infiltrate. An improved right basilar atelectasis. Done on 10/19/16. CT abdomen pelvis without contrast performed on 10/19/16 showing cholelithiasis, pancreatitis, small amount of ascites, diverticulosis, appendectomy and hysterectomy. Cardiac Echo Impressions Echo 10/21 Technically difficult study. The left ventricle is grossly normal size with hyperdynamic function. The ejection fraction is estimated to be 65-70%. Mildly dilated left atrium. No obvious valvular abnormality. Right ventricular systolic pressure is estimated to be 35 mmHg plus the clinically estimated CVP which cannot be estimated on this exam Additional Diagnostics DateTimeAnalyzed 17:46:48 -_ pH ____7.135 - 7.350 7.450 pCO2 ___49.4__ -mmHg 35.0 45.0 pO2 143 -mmHg 70.0 100 HCO3- ___16.6__ -mmol/L 22.0 26.0 Assessment & Plan Patient is a 61-year-old female with medical history significant for COPD, hypertension, bipolar/depression, and morbidly obese presented with severe pancreatitis, intubated for airway protection, and possibly developing ARDS. ICU day 5. Anion gap metabolic acidosis, present on admission, acute. - Likely due to JOHN PAUL, sepsis and concomitant respiratory acidosis - Salicylates negative, methyl alcohol, lactic acid, ethylene glycol negative - Sodium Acetate drip per ICU team - Continue Nimbex and Ventilator wean per ICU team Pancreatitis, present on admission, acute. Ongoing. - Source currently unclear. Possible gallstones pathology, or less likely drug/ toxin induced. - US abdomen ordered, gallstone present but no conclusive evidence; consider GI consult for possible MRCP depending on goals of care - Fluids stopped as patient seemed to be overloaded, is still +11L on fluid balance - Continue Fentyl drip for pain, evaluate possibility of weaning with ICU team - NG tube in place, continue trough feeds Metabolic encephalopathy, present on admission, acute. Ongoing. - Intubated for airway protection - possible ARDS or air trapping due to severe COPD. - Echocardiogram as above - Continue Duoneb plus Pulmocort to promote airway patency - Arterial line for continuous ABG's - Ventilation as above Severe Sepsis, present on admission, acute. Improving. - Patient met SIRS criteria, likely source cellulitis of LE - Fluids stopped as above - Norepi weaned down to 0.1 per ICU team - Blood, urine cultures continue to be negative - Infectious Disease will continue antibiotics: Meropenem 2g q12 hours Daptomycin q48 hours Clindamycin q8 hours - Palliative care will meet with family 10/23 to discuss goals of care Cellulitis, present on admission, acute. Improving. - Bilateral LE improved, no erythema; some skin sloughing as above - Clinically, the redness has retreated but there is skin sloughing of her left LE - Antibiotics as above - CT head/chest/abd/pelvis negative for abscess, fluid collection Acute on Chronic Kidney Injury, present on admission. Improving. - Likely secondary to sepsis - Creatinine down to 2.2 - Urine output steadily increasing - Avoid nephrotoxic medications as necessary Atrial Fibrillation with RVR, not present on admision, acute. Resolved. - Patient converted to NSR with HR 80-90 - Continue Diltiazem drip for rate control per ICU team to prevent recurrence due to ongoing acidosis - [id number] score is 2 (female 1, HTN 1); patient is currently on Lovenox prophylactically Acetaminophen for mild pain, fever, headache when necessary. Bowel regimen Senna and MiraLAX scheduled as necessary. Zofran when necessary for nausea and vomiting. Sub-Q Lovenox every 12 hours. SCD's contraindicated due to LE cellulitis. Disposition: The patient will likely be here throughout the week depending on her response to fluid resuscitation, antibiotics, and other medical interventions. VTE Prophylaxis: Sub-Q Enoxaparin VTE Mechanical Devices: Intermittant Pneumatic CD Resuscitation Status: Limited Interventions (DO NOT RESUSCITATE) Limited Interventions: Intubation w Mech Vent, Medications and IV Fluid Attending Statement The patient was seen and examined together with Dr. Castillo on 10/24/16 and I agree with the history, exam and plan as outlined in the note above. Sadi Castillo DO Oct 24, 2016 18:27 Rosa M Abbasi DO Oct 30, 2016 16:28
[2016-10-25] VITALS (12 sets, daily range): BP systolic 120–131; BP diastolic 54–64; PULSE 68–78; RESP 24; O2SAT 95–98
[2016-10-25] MEDS: Ipratropium 0.02% 0.5 mg/2.5 mL Inhalation Solution NEB SCH ×6 (00:01→20:36)
[2016-10-25] MEDS: Chlorhexidine 0.12% 15 mL Oral Solution MT SCH ×6 (00:39→20:46)
[2016-10-25] MEDS: Clindamycin Inj 900 MG in IV Premix 1 EACH IV SCH ×3 (00:39→16:54)
[2016-10-25] MEDS: MethylprednisoLONE Sodium Succinate 40 mg/mL Inj IVPUSH SCH ×3 (00:41→20:47)
[2016-10-25] MEDS: Norepineph 8,000 mCg/250 mL NS 8,000 MCG in IV Premix 1 EACH IV SCH ×2 (00:41→17:55)
[2016-10-25] MEDS: Cisatracurium Inj 200,000 MCG in 0.9% Sodium Chloride-Pha MIX 100 ML IV SCH ×3 (02:03→23:15)
[2016-10-25] MEDS: Propofol Inj 1,000,000 MCG in IV Premix 1 EACH IV SCH ×7 (02:27→22:27)
[2016-10-25 05:21] LABS: BASOPHILS % (AUTO) 0.1 % (0-3); EOSINOPHILS % (AUTO) 0 % (0-5); MONOCYTES % (AUTO) 7.2 % (4-12); Mean Corpuscular Volume 93.3 fL (81-100); NEUTROPHILS % (AUTO) 88.6 % (40-74); Platelet Count 283 bil/L (150-400)
--- NOTE | 2016-10-25 05:33 | NUR ---
During pt's bath, pt was noted to have a quarter size red area in which the skin appears to be sloughing off and 2 dk purple linear langford to right buttocks. Message left for wound care. Residuals for TF have been in the mid 200's ml but this morning decreased to 180 ml. TF continue to run at 10 ml/hr trickle feed. Upon doing oral care, pt appears to have thrush in mouth. Will pass on to day shift to bring up in grand rounds. Able to wean off of levophed. Levophed remains off with last BP of 128/58. Pt is on CLRT. Complete bath and linen change done.
[2016-10-25] MEDS: Budesonide 0.5 mg/2 mL Inhalation Solution NEB SCH ×2 (07:24→20:34)
--- NOTE | 2016-10-25 07:30 | ABG ---
DateTimeAnalyzed 07:24:00 -_ pH ____7.277 - 7.350 7.450 pCO2 ___46.9__ -mmHg 35.0 45.0 pO2 ___84.2__ -mmHg 69.0 116 HCO3- ___21.2__ -mmol/L 22.0 26.0 ABE ___-4.9__ -mmol/L -2.0 2.0 tHb ____9.1__ -g/dL O2Hb ___93.0__ -% COHb ____0.8__ -% MetHb ____1.3__ -% sO2 ___95.0__ -% FIO2 ___80.0__ -% PRVC 400 - PEEP ___10.0__ -cmH2O Set_RR ___24.0__ -b/min Drawn By as - Date/Time Notified____ 07:29:00 -_ Spontaneous_RR ___24.0__ -b/min Oxygen Device 1 VENTILATOR - Notified By ams - Notified Whom Dr Kendregan - B 762 -mmHg tO2 ___12.1__ -Vol% OrderingPhysicianInitials bak - Ruben test N/A -
[2016-10-25] MEDS: Famotidine Inj 50 ML IV SCH (08:30)
--- NOTE | 2016-10-25 08:40 | DRSVH ---
PROCEDURE: X-RAY CHEST ONE VIEW, PORTABLE ([id number]) INDICATIONS: acute respirator failure TECHNIQUE: One view of the chest was acquired. COMPARISON: [facility], CR, XR CHEST 1VW, 10/24/2016, 5:14. FINDINGS: Surgical changes and devices: An endotracheal tube ends 5.5 cm above the lizeth. There is an NG tube into the stomach. Side hole is not distinguishable. No gastric distention is seen. There is a right i nternal jugular central line with the tip at the junction of the superior vena cava and right atrium, unchanged in position. Lungs and pleura: There is abnormal density behind the heart with some air bronchogram consistent wit h some consolidation. The appearance is left lower lobe pneumonia. There is patchy density at the rig ht base suggestive of right lower lobe patchy pneumonia. Pulmonary vasculature is not to be normal. Mediastinum: Mediastinal contours appear normal. Heart size is normal. Bones and chest wall: No suspicious bony lesions. Overlying soft tissues appear unremarkable. IMPRESSION: Left lower lobe area of consolidation unchanged since the previous days film and probable patchy involvement of the right lower lobe. No changes to indicate failure are seen. Tubes and lines are thought to be appropriate in position. Dictated by: Luis Eduardo Dang M.D. on 10/25/2016 at 8:36 Approved by: Luis Eduardo Dang M.D. on 10/25/2016 at 8:38
--- NOTE | 2016-10-25 08:50 | PROG NOTE ---
[address] [address] PROGRESS NOTE PATIENT: MAYKEL MCDANIEL : 1955 MR#: [id number] ADMIT: 10/20/2016 JOB ID: [id number] DATE: 10/25/2016 REASON FOR FOLLOW UP: Ventilator dependent respiratory failure and shock in a patient with pancreatitis, COPD and probable septic shock. INTERVAL HISTORY: Overnight, the patient has been successfully tapered off her vasopressor agents and her respiratory requirements have diminished slightly. She still remains on 80% FiO2, 10 of PEEP and remains critically ill in all respects, but she is improving a bit now day by day. This case discussed at the bedside with the attending physician, as well as the nursing staff. The patient is obviously not responsive as she is intubated and sedated. PHYSICAL EXAMINATION: Reveals an intubated, sedated, critically ill woman lying supine in the ICU. Temp 36.3, her pulse is 70 and sinus rhythm. The blood pressure 128/56, off vasopressor agents. She is down to 80 FiO2 and 10 of PEEP which is improved from 100% and higher levels of PEEP over the past few days. Her urine output is reasonable. Examination of the head reveals no obvious change. There are no changes involving the eyes or nose. Oral gastric tube, oral endotracheal tube in good position. Neck with a right central line as before. Right radial A-line is also present and these appear uninfected. Her lungs are notable for scattered rales at the bases, but relatively clear. Cardiac tones without murmur. Abdomen obese soft and apparently nontender, though the patient remains heavily sedated. Tenorio catheter is present with good urine output. The bilateral lower extremity stasis dermatitis is essentially resolved. The denuded area of skin on the back of the left calf continues to appear benign and is in fact healing. LABORATORY DATA: Labs include white count 16,000 down from 31 a couple days ago. Still with 88% segs. Creatinine is down to 2.07 from 2.5 two days ago. LFT is totally normal. Albumin 2.8. Pro calcitonin stable at 0.15 and we could probably stop checking that. Urinalysis with no white cells. Hep C viral load negative. HIV negative. Micro studies include negative blood cultures, negative sputum culture, negative MRSA screen. ASO titers were borderline. I reviewed today's chest x-ray. It looks similar to recent films; though, there is probably some clearing at both bases and more clearing on the right than the left. IMPRESSION: Overall, this patient is definitely improving. Whether or not her shock and respiratory failure were due to pancreatitis or perhaps pancreatitis with another process such as toxic shock syndrome rising from the soft tissues of the left lower extremity is unclear. At this point, the patient is 5-1/2 days into this complicated hospital stay and I think it is reasonable to continue with her broad-spectrum antibiotics directed at least in part at the possibility of toxic shock syndrome. Given that we have not isolated methicillin-resistant Staphylococcus aureus from any site, I think it is reasonable to stop the daptomycin and will make that change today with the plans to discontinue as of this evening on that antibiotic. I would continue with the clindamycin and meropenem for now as I am concerned that this may have been a streptococcal toxic shock like event even though the patient did not to fulfill all the standard criteria. RECOMMENDATIONS: 1. Will discontinue the daptomycin as of . 2. I would continue with the clindamycin and meropenem at least through the . 3. Note that I will be out of town the next three days returning on October 29. I can be reached about this or any other patient by cell phone or text.
[2016-10-25] MEDS: fentaNYL 2,500 mCg/250 mL 2,500 MCG in IV Premix 1 EACH IV PRN (09:41)
[2016-10-25] MEDS: Meropenem Inj 2,000 MG in 0.9% Sodium Chloride 100 ML IV SCH ×2 (09:44→20:46)
--- NOTE | 2016-10-25 09:44 | PCM.PNMED ---
Subjective Date of Service Oct 25, 2016 Subjective Overnight there were no acute events. ICU day 6. Ms. Dewitt continues to improve, albiet slowly. She is maintaining her pressures off any pressors and her kidneys are slowly recovering. She is being trough fed without issue. She was weaning off Nimbex and the ventilator at a steady rate but the Nimbex was reapplied overnight. The ICU team will continue weaning her as tolerated. Exam Vital Signs Vital Sign - Last Date Time Temp Pulse Resp B/P Pulse Ox O2 Delivery O2 Flow Rate FiO2 10/25/16 07:58 Ventilator 10/25/16 07:47 75 127/54 96 80 10/25/16 07:34 36.3 24 Intake and Output 10/24/16 10/24/16 10/25/16 Cumulative From/Thru 15:00 23:00 07:00 10/20/16 18:25 - 10/25/16 06:16 Intake Total 2050 ml 2303 ml 96521 ml Output Total 500 ml 750 ml 7455 ml Balance 1550 ml 1553 ml 24273 ml Intake IV Total 2050 ml 2126 ml 97323 ml Tube Feeding 116 ml 234 ml Tube Irrigant 61 ml 121 ml Output Urine Total 500 ml 750 ml 6500 ml Gastric Drainage Total 955 ml # Bowel Movements 0 0 Exam General: Intubated and Sedated morbidly obese female. Head of bed is elevated to 30 degrees. HEENT: NCAT. PERRLA. Anicteric sclerae, moist conjunctivae. OG tube present. Neck: No JVD, No lymphadenopathy or thyromegaly. Cardiovascular: RRR. No murmurs/rubs. Pulmonary: On ventilator. Still crackling at the bases bilaterally. No wheezing. Abdomen: Obese, distended. Bowel sounds faint but present. No masses noted. : Tenorio catheter in place. 750 ml output. Extremities: +3 pitting LE edema equal bilaterally, erythema has mostly resolved. Skin sloughing on the posterior left LE with slight weeping fluid but no erythema. Neurological: Sedated. unable to evaluate Psychiatric: Sedated, unable to evaluate. IVs and Medications Medications Reviewed: Medications were reviewed in detail Lab and Diagnostics Result Diagram: 10/25/16 0515 10/25/16 0515 X-Rays, CTs and MRIs CXR 10/25 IMPRESSION: Left lower lobe area of consolidation unchanged since the previous days film and probable patchy involvement of the right lower lobe. No changes to indicate failure are seen. Tubes and lines are thought to be appropriate in position. Dictated by: Luis Eduardo Dang M.D. on 10/25/2016 at 8:36 Approved by: Luis Eduardo Dang M.D. on 10/25/2016 at 8:38 CXR 10/24 IMPRESSION: Stable interval exam demonstrating bibasilar opacities suggestive of pneumonia. Dictated by: Ailyn Day M.D. on 10/24/2016 at 9:29 Approved by: Ailyn Day M.D. on 10/24/2016 at 9:31 CT Chest/Abd/Pelv 10/23 IMPRESSION: 1. Dense bibasilar pulmonary consolidation with small pleural effusion suspicious for aspiration/infection. 2. Small amount of intra-abdominal ascites. 3. Cholelithiasis. No definite cholecystitis; however study is limited given the lack of intravenous contrast. 4. Edematous appearance to the pancreas with peripancreatic fluid. It is unclear whether this is secondary to generalized ascites or may represent acute pancreatitis. Please correlate with laboratory values. 5. Diverticulosis. No acute diverticulitis. Dictated by: Katina Vela M.D. on 10/23/2016 at 14:09 Approved by: Katina Vela M.D. on 10/23/2016 at 14:40 Chest XR 10/22 IMPRESSION: Slightly improved aeration of the left lung base. Otherwise unchanged. Dictated by: Katina Vela M.D. on 10/22/2016 at 8:27 Approved by: Katina Vela M.D. on 10/22/2016 at 8:27 Abd US IMPRESSION: Gallstone within the gallbladder lumen, without gallbladder wall thickening. Slight amount of adjacent pericholecystic free fluid. Hepatomegaly , fatty infiltration throughout the liver. Slight amount of free fluid deep within the pelvis, not safe for ultrasound guided paracentesis. Poor visualization of significant portions of the retroperitoneum due to overlying bowel gas. X-ray from [facility] reveals new left basilar infiltrate. An improved right basilar atelectasis. Done on 10/19/16. CT abdomen pelvis without contrast performed on 10/19/16 showing cholelithiasis, pancreatitis, small amount of ascites, diverticulosis, appendectomy and hysterectomy. Cardiac Echo Impressions Echo 10/21 Technically difficult study. The left ventricle is grossly normal size with hyperdynamic function. The ejection fraction is estimated to be 65-70%. Mildly dilated left atrium. No obvious valvular abnormality. Right ventricular systolic pressure is estimated to be 35 mmHg plus the clinically estimated CVP which cannot be estimated on this exam Additional Diagnostics DateTimeAnalyzed 17:46:48 -_ pH ____7.135 - 7.350 7.450 pCO2 ___49.4__ -mmHg 35.0 45.0 pO2 143 -mmHg 70.0 100 HCO3- ___16.6__ -mmol/L 22.0 26.0 Assessment & Plan Patient is a 61-year-old female with medical history significant for COPD, hypertension, bipolar/depression, and morbidly obese presented with severe pancreatitis, intubated for airway protection, and possibly developing ARDS. ICU day 6. Anion gap metabolic acidosis, present on admission, acute. Improving. - Likely due to JOHN PAUL, sepsis and concomitant respiratory acidosis - Salicylates negative, methyl alcohol, lactic acid, ethylene glycol negative - Sodium Acetate drip per ICU team - Continue Nimbex and Ventilator wean per ICU team - Gap is closing, at 15 currently from 18 on 10/24 Pancreatitis, present on admission, acute. Ongoing. - Source currently unclear. Possible gallstones pathology, or less likely drug/ toxin induced. - US abdomen ordered, gallstone present but no conclusive evidence; consider GI consult for possible MRCP depending on goals of care - Fluids stopped as patient seemed to be overloaded, is still +11L on fluid balance - Continue Fentyl drip for pain, evaluate possibility of weaning with ICU team - Consider trough feed change to diabetic formula as her glucose is increasing - Consider adding insulin to control blood glucose Metabolic encephalopathy, present on admission, acute. Ongoing. - Intubated for airway protection - possible ARDS or air trapping due to severe COPD. - Echocardiogram as above - Continue Duoneb plus Pulmocort to promote airway patency - Arterial line for continuous ABG's - Ventilation and Nimbex wean as above Severe Sepsis, present on admission, acute. Improving. - Patient met SIRS criteria, likely source cellulitis of LE - Patient off Norepi and maintaining pressures - Blood, urine cultures continue to be negative - Infectious Disease has discontinued Daptomycin, will continue Meropenem and Clindamycin until 10/29 Cellulitis, present on admission, acute. Improving. - Bilateral LE improved, no erythema; some skin sloughing - Antibiotics changed as above - CT head/chest/abd/pelvis negative for abscess, fluid collection Acute on Chronic Kidney Injury, present on admission. Improving. - Likely secondary to sepsis - Creatinine down to 2.07 - Urine output steadily increasing - Continue to avoid nephrotoxic medications Atrial Fibrillation with RVR, not present on admision, acute. Resolved. - Patient converted to NSR with HR 80-90 - Continue Diltiazem drip for rate control per ICU team to prevent recurrence due to ongoing acidosis - [id number] score is 2 (female 1, HTN 1); patient is currently on Lovenox prophylactically Acetaminophen for mild pain, fever, headache when necessary. Bowel regimen Senna and MiraLAX scheduled as necessary. Zofran when necessary for nausea and vomiting. Sub-Q Lovenox every 12 hours. SCD's contraindicated due to LE cellulitis. Disposition: The patient will likely be here through the weekend depending on her continued stability as she is weaned off the ventilator and maintaining her pressures without support. VTE Prophylaxis: Sub-Q Enoxaparin VTE Mechanical Devices: Intermittant Pneumatic CD Resuscitation Status: Limited Interventions (DO NOT RESUSCITATE) Limited Interventions: Intubation w Mech Vent, Medications and IV Fluid Attending Statement The patient was seen and examined together with Dr. Castillo on 10/25/16 and I have added additional information to the note above. Sadi Castillo DO Oct 25, 2016 09:44 Rosa M Abbasi DO Oct 25, 2016 12:36
[2016-10-25] MEDS: Thiamine Inj 200 MG in Dextrose 5% 50 ML IV SCH (10:32)
--- NOTE | 2016-10-25 11:08 | PCM.PNMED ---
Subjective Date of Service Oct 25, 2016 Subjective Patient is a 61-year-old female with medical history significant for severe COPD initially showed up to [facility] with abdominal pain, obtunded, found to have metabolic acidosis and severe pancreatitis, ultimately intubated and transferred to [facility] ICU for further medical management. Patient has made incremental improvements since yesterday. Blood pressure improved, oxygenation slightly better, and lactic acidosis in the setting of renal failure also improving. No overnight events. Today, patient remains intubated, sedated, and paralyzed. She maintain O2 saturation at 96% with ABG pH 7.27, PCO2 46, PaO2 84, HCO3 21.2 on vent setting of FiO2 80%, RR 24, PEEP 10, TV 400. Minimal auto PEEP, still was quite high Pplat 38, though better from 2 days earlier. Patient remains normal sinus with map in the 80s. Norepinephrine has been discontinue. SVV at 2%, with SVRI 2300, and cardiac index of 2.3. Kidney function improving, current creatinine at 2.07, metabolic acidosis also improving bicarbonate 20. Though, patient still has metabolic acidosis with secondary respiratory acidosis with anion gap of 17. No fevers overnight. WBC significantly decreased to 16,000 down from 32,000 2days ago. Exam Vital Signs Vital Sign - Last Date Time Temp Pulse Resp B/P Pulse Ox O2 Delivery O2 Flow Rate FiO2 10/25/16 07:58 Ventilator 10/25/16 07:47 75 127/54 96 80 10/25/16 07:34 36.3 24 Intake and Output 10/24/16 10/24/16 10/25/16 Cumulative From/Thru 15:00 23:00 07:00 10/20/16 18:25 - 10/25/16 06:16 Intake Total 2050 ml 2303 ml 54723 ml Output Total 500 ml 750 ml 7455 ml Balance 1550 ml 1553 ml 67725 ml Intake IV Total 2050 ml 2126 ml 73157 ml Tube Feeding 116 ml 234 ml Tube Irrigant 61 ml 121 ml Output Urine Total 500 ml 750 ml 6500 ml Gastric Drainage Total 955 ml # Bowel Movements 0 0 Exam General: intubated sedated. Morbidly obese, bed elevated to 30 head incline HEENT: Normocephalic, atraumatic. PERRLA, Anicteric sclerae, moist conjunctivae Neck: No JVD, No lymphadenopathy or thyromegaly. thicken neck , right central line in place Cardiovascular: Regular rate and rhythm, no murmur rub or gallop Pulmonary: b/l air sound diminished, no crackles or wheezes. Abdomen: quite bowel sound, no signs of retroperitoneal bleeding : Tenorio catheter in placed Extremities: No clubbing, cyanosis. b/l edema pitting up to the thighs, significantly worse and yesterday, left posterior lower leg wound on change in redness, right distal forearm radial arterial line in place Skin: lower legs, edematous, calor, erythema around the posterior lower leg, improved. Neurological: sedated, paralyzed. unable to evaluate Lab and Diagnostics Result Diagram: 10/25/1651410/25/16 0515 X-Rays, CTs and MRIs CXR 10/25 IMPRESSION: Left lower lobe area of consolidation unchanged since the previous days film and probable patchy involvement of the right lower lobe. No changes to indicate failure are seen. Tubes and lines are thought to be appropriate in position. Dictated by: Luis Eduardo Dang M.D. on 10/25/2016 at 8:36 Approved by: Luis Eduardo Dang M.D. on 10/25/2016 at 8:38 CXR 10/24 IMPRESSION: Stable interval exam demonstrating bibasilar opacities suggestive of pneumonia. Dictated by: Ailyn Day M.D. on 10/24/2016 at 9:29 Approved by: Ailyn Day M.D. on 10/24/2016 at 9:31 CT Chest/Abd/Pelv 10/23 IMPRESSION: 1. Dense bibasilar pulmonary consolidation with small pleural effusion suspicious for aspiration/infection. 2. Small amount of intra-abdominal ascites. 3. Cholelithiasis. No definite cholecystitis; however study is limited given the lack of intravenous contrast. 4. Edematous appearance to the pancreas with peripancreatic fluid. It is unclear whether this is secondary to generalized ascites or may represent acute pancreatitis. Please correlate with laboratory values. 5. Diverticulosis. No acute diverticulitis. Dictated by: Katina Vela M.D. on 10/23/2016 at 14:09 Approved by: Katina Vela M.D. on 10/23/2016 at 14:40 Chest XR 7/11 IMPRESSION: Slightly improved aeration of the left lung base. Otherwise unchanged. Dictated by: Katina Vela M.D. on 10/22/2016 at 8:27 Approved by: Katina Vela M.D. on 10/22/2016 at 8:27 Abd US IMPRESSION: Gallstone within the gallbladder lumen, without gallbladder wall thickening. Slight amount of adjacent pericholecystic free fluid. Hepatomegaly , fatty infiltration throughout the liver. Slight amount of free fluid deep within the pelvis, not safe for ultrasound guided paracentesis. Poor visualization of significant portions of the retroperitoneum due to overlying bowel gas. X-ray from [facility] reveals new left basilar infiltrate. An improved right basilar atelectasis. Done on 10/19/16. CT abdomen pelvis without contrast performed on 10/19/16 showing cholelithiasis, pancreatitis, small amount of ascites, diverticulosis, appendectomy and hysterectomy. Cardiac Echo Impressions Echo 10/21 Technically difficult study. The left ventricle is grossly normal size with hyperdynamic function. The ejection fraction is estimated to be 65-70%. Mildly dilated left atrium. No obvious valvular abnormality. Right ventricular systolic pressure is estimated to be 35 mmHg plus the clinically estimated CVP which cannot be estimated on this exam Additional Diagnostics DateTimeAnalyzed 17:46:48 -_ pH ____7.135 - 7.350 7.450 pCO2 ___49.4__ -mmHg 35.0 45.0 pO2 143 -mmHg 70.0 100 HCO3- ___16.6__ -mmol/L 22.0 26.0 Assessment & Plan Assessment & Plan Patient is a 61-year-old female with medical history significant for severe COPD initially [facility], status post intubation for decreased mentation, currently in ICU day 5. Problem list # Metabolic acidosis # Ventilator dependent respiratory failure # COPD Respiratory Ventilation Dependent Respiratory failure - Tolerating the vent with paralytics and sedation - RR set at 24, balancing the need to CO2 vs worsening autopeep w/ subsequent hemodynamic depression - Ween down O2 needs, current FIO2 80%, PEEP 10 first, continue paralytics - ABG as needed - CRX in the am COPD exacerbation - History of cigarette smoke, currently weed on a daily basis - Continue ipratropium and Pulmicort - Solu-Medrol 60 mg BID today, need to change to QD tomorrow. Infectious Cellulitis of the left lower leg, improving - WBC trending down - ASO negative, cultures negative thus far. - Antibiotic regiment to clindamycin and daptomycin per Dr. Hardin Hemodynamics Distributed shock, resolved - Possible sepsis, less likely pancreatitis - Fluid resuscitated. Lactic acid wnl - Off pressors Paroxysmal atrial fibrillation, ongoing - Currently normal sinus, some concern for recurrence given acidotic state - Continue Cardizem drip, consider d/c tmrw if metabolic acidosis improves Hematology Leukocytosis - Possible infectious cause in addition to steroid use Normocytic anemia - Hemoglobin stable - Monitor, transfuse if hemoglobin less than 7 DVT prophylaxis - Lovenox subcutaneous Metabolic Anion gap metabolic acidosis, improving - Negative ketones, lactic acids, normal osmolar gap - Likely a combination of respiratory acidosis and renal failure - d/c sodium acetate drip Acute on chronic kidney injury - Baseline creatinine 1.4, secondary to distributive shock, dehydration - Urine output increase - Monitor electrolyte Alimentary Pancreatitis - Continue IV pain medication and hydration - Start trophic feeding - Trend lipase in the setting of pancreatitis GI prophylaxis - Famotidine Neurologic - Intubated, sedated, paralyzed - Ween down nimbex as above - Consider sedation holiday once Nimbex off Total time spent 1 hour. VTE Prophylaxis: Sub-Q Enoxaparin VTE Mechanical Devices: Intermittant Pneumatic CD Resuscitation Status: Limited Interventions (DO NOT RESUSCITATE) Limited Interventions: [facility], Medications and IV Fluid Jose Parker DO Oct 25, 2016 11:08
--- NOTE | 2016-10-25 13:16 | NUR ---
NUTRITION FOLLOW-UP: Assess: 61 YO F admitted to CCU with severe acidosis, respiratory distress, pancreatitis, and sepsis. Pt remains intubated. Nimbex was restarted this morning. Palliative care is following; code status changed to DNR. Trophic TF was started 10/23 at trophic rate 10 mL/hr. Initially she had high residuals of ~300ml, likely due to nimbex. Blood glucose labs rising; per discussion during CCU rounds, may potentially change enteral formula from peptide-based Vital 1.5 to diabetes formula, Glucerna 1.5. PMHX: COPD, OA, osteoporosis, depression, bipolar, hep C treated w/ antiviral therapy, hx IV drug abuse. DIET: NPO x 5 D. LABS: BUN 59, Cr 2.07, Glu 240, A1c 6.1, Ca 7.9, Alb 2.6, Procalcitonin 0.15, Lipase 133. MEDICATIONS: Reviewed. Fentanyl, thiamine, nimbex, synthroid. Propofol rate currently 27.7 mL/hr, providing 731 lipid kcal. GI: No BM noted. SKIN: Leg cellulitis / edema in LE. NUTRITION SUPPORT: Vital 1.5 @ 10 ml/hr providing 330kcal (1182kcal w/propofol) and 15g pro (60% kcal and 15% pro needs). ANTHROPOMETRICS: Wt 157.0 kg, BMI 51.0 kg/m2, Admit wt: 154.9 kg, Adj. BW: 87.3kg, IBW:65.9kg ESTIMATED NEEDS: VENT/BMI/JOHN PAUL Calories: 2750-5438 kcal/day (20-22 kcal/kg Adj. BW) Protein: 100-120 g/day (1.5-1.8 g/kg IBW) Fluids: ~2220-2660ml/day (25-30ml/kg adj bw) NUTRITION DIAGNOSIS: 1) Inadequate oral intake related to decreased ability to consume sufficient energy as evidenced by NPO/vent status, enteral feeding at trophic rate - PERSISTS. INTERVENTION: 1) Recommend change enteral formula to Glucerna 1.5 as follows. Initiate Glucerna 1.5 at 10 ml/hr x 24 hr. Once tolerance established, recommend advance 5 ml every 4 hr. to goal rate 35 mL/hr. 2) Once enteral feeding advanced beyond trophic rate, recommend add 5 packets ProSource liquid protein per day; total 1155 kcal (1886 with propofol), 63 g protein (118 with ProSource), meeting 100% nutrient needs. 3) Adjust goal rate based on propofol. 4) Recommend addition of scheduled bowel regimen as pt has not had a BM x4 days MONITOR/EVALUATE: NPO/Vent status, enteral formula change / tolerance, BM, labs, wt, POC, GI/nutrition status. Follow per high nutrition risk guidelines.
--- NOTE | 2016-10-25 13:17 | PROCED ---
[address] [address] EEG PATIENT: MAYKEL MCDANIEL : 1955 MR#: [id number] ADMIT: 10/20/2016 JOB ID: [id number] DATE OF SERVICE: 10/22/2016 HISTORY: The patient is a 61-year-old woman with altered mental status. TECHNICAL DESCRIPTION: This digital EEG was recorded using 25 scalp and ear, and two EKG electrodes. It was reviewed in bipolar and referential montages following reforming in the 10-20 International Electrode Placement System. During the recording, the patient was noted to be drowsy. The electroencephalogram was composed of a polymorphic mixture of delta and theta rhythms of low amplitude with diffuse slowing throughout. No hyperventilation was performed. The patient was intubated. Photic stimulation from 1-30 hertz did not elicit any photic driving response. There were no focal, lateralized, or epileptiform discharges noted. The EKG rhythm strip revealed a heart rate of 60-120 beats per minute with no apparent arrhythmias. IMPRESSION: This EEG performed in the drowsy state is abnormal. The diffuse slowing is suggestive of moderate cerebral cortical dysfunction/encephalopathy. This is nonspecific and may be seen as a side effect of medications. It may also be seen in a variety of different neurologic conditions including toxic, metabolic, hypoxic, inflammatory, autoimmune, and infectious states. There is no change in the EEG rhythm strip with local stimulation, clapping near the left ear, deep pressure on the left index finger, or deep pressure on the right great toe nail bed. This is consistent with a comatose state. Clinical correlation is advised.
[2016-10-25] MEDS: Diltiazem 125 mg/125 mL D5W IV SCH ×2 (13:50)
[2016-10-25] MEDS: Levothyroxine 100 mCg/5 mL Inj IV SCH (13:50)
[2016-10-25] MEDS ORDERED: Glucose 40% Oral Gel 15 Gm Tube PO PRN (14:15)
--- NOTE | 2016-10-25 15:24 | NUR ---
Social Work: Multidisciplinary Rounds Pt discussed in am rounds. Pt remains in CCU on vent. SW status remains unchanged from previous day. BROOD HATCHERY MANAGER to continue to follow and will see pt to complete IA once medically stable. BROOD HATCHERY MANAGER has attempted assessment with pt's son via telephone with no success. FAITH [place]
[2016-10-25] MEDS: Insulin GLARgine 100 Unit/mL Syringe SUBQ SCH ×2 (16:52→20:46)
--- NOTE | 2016-10-25 17:42 | PROCED ---
[address] [address] EEG PATIENT: MAYKEL MCDANIEL : 1955 MR#: [id number] ADMIT: 10/20/2016 JOB ID: [id number] DATE OF SERVICE: 10/22/2016 REQUESTING PHYSICIAN: Jose Parker DO CLINICAL HISTORY: The patient is a 61-year-old female with acute pancreatitis, currently on fentanyl and propofol. EEG requested for seizure activity. TECHNICAL DESCRIPTION: This digital EEG was recorded using a 25 scalp and ear electrode system with two EKG electrodes. It was reviewed on the bipolar and referential montages using a 1020 International Electrode Placement System. DESCRIPTION: While awake with eyes closed, there are five hertz rhythmic and symmetric waveforms seen over the occipital head region which attenuate with eye opening. There are no focal lateralizing or epileptiform abnormalities seen throughout the recording. This is an extremely low amplitude recording. The patient appears to enter sleep where there is sleep architecture noted. Hyperventilation was not performed due to the patient's being intubated. Activation: Photic activation does not reveal any photic driving and no photoparoxysmal discharges. Rhythm strip shows regular rhythm. IMPRESSION: Abnormal electroencephalogram due to slowing and low amplitude. Minimal activity is appreciated. This electroencephalogram can be seen with extreme global brain injury or due to medications. Recommend repeat imaging if needed once the patient is extubated. There is no evidence of status epilepticus to suggest ongoing seizure activity as a cause for the patient's coma/lack of responsiveness. [facility]
--- NOTE | 2016-10-25 18:11 | NUR ---
Shift: VSS, tele SR 60s-70s, Diltiazem gtt stopped approx 1500. Vent settings 80/10/24/400, O2 sats 94-96%. Vital 1.5 stopped and Glucerna 1.5 started, tube feeds at 10mL/hr, residuals approx 50-60mL. Pt turned q2h, heels floated by pillows, CLRT active on bed. Son at bedside, updated on plan of care, care ongoing.
[2016-10-25] MEDS: Nystatin 100,000 Unit/mL 5 mL Suspension PO PRN (20:47)
[2016-10-26] VITALS (12 sets, daily range): BP systolic 112–156; BP diastolic 56–72; PULSE 75–83; RESP 24; O2SAT 91–97
[2016-10-26] MEDS: Clindamycin Inj 900 MG in IV Premix 1 EACH IV SCH ×3 (00:21→15:52)
[2016-10-26] MEDS: Chlorhexidine 0.12% 15 mL Oral Solution MT SCH ×6 (00:24→21:22)
[2016-10-26] MEDS: Propofol Inj 1,000,000 MCG in IV Premix 1 EACH IV SCH ×8 (01:26→22:52)
[2016-10-26 05:25] LABS: EOSINOPHILS % (AUTO) 0 % (0-5); Mean Corpuscular Hemoglobin 29.9 pg (27.0-35.0); Mean Corpuscular Volume 94.1 fL (81-100); Platelet Count 315 bil/L (150-400)
[2016-10-26] MEDS: Ipratropium 0.02% 0.5 mg/2.5 mL Inhalation Solution NEB SCH ×6 (05:33→20:27)
--- NOTE | 2016-10-26 05:42 | NUR ---
Pt's night was unremarkable. Vital remain stable. HR sinus in the 70-80's with no ectopy noted. Tube feeds continue. Residuals 80-100 ml. Placement of OGT verified through auscultation. CLRT ongoing. Bath given. Will continue to monitor.
--- NOTE | 2016-10-26 05:47 | ABG ---
DateTimeAnalyzed 05:38:00 -_ pH ____7.276 - 7.350 7.450 pCO2 ___50.1__ -mmHg 35.0 45.0 pO2 ___88.2__ -mmHg 69.0 116 HCO3- ___22.6__ -mmol/L 22.0 26.0 ABE ___-3.7__ -mmol/L -2.0 2.0 tHb ____9.6__ -g/dL O2Hb ___93.6__ -% COHb ____0.8__ -% MetHb ____1.1__ -% sO2 ___95.4__ -% FIO2 ___80.0__ -% PRVC 24 - PEEP ___10.0__ -cmH2O Set_RR ___24.0__ -b/min Vt __400.0__ -L Drawn By MM - Date/Time Notified____ 05:46:00 -_ Spontaneous_RR ___24.0__ -b/min Oxygen Device 1 VENTILATOR - Notified By MM - Notified Whom _DR SAVAGE - B 761 -mmHg tO2 ___12.7__ -Vol% Ruben test N/A -
[2016-10-26 05:52] LABS: BASOPHILS % (AUTO) 0 % (0-3); MONOCYTES % (AUTO) 6 % (4-12); NEUTROPHILS % (AUTO) 88 % (40-74)
[2016-10-26] MEDS: Cisatracurium Inj 200,000 MCG in 0.9% Sodium Chloride-Pha MIX 100 ML IV SCH ×3 (06:35→13:55)
[2016-10-26] MEDS: Diltiazem 125 mg/125 mL D5W IV SCH ×2 (07:00)
[2016-10-26] MEDS: fentaNYL 2,500 mCg/250 mL 2,500 MCG in IV Premix 1 EACH IV PRN (07:59)
[2016-10-26] MEDS: Thiamine Inj 200 MG in Dextrose 5% 50 ML IV SCH (08:02)
[2016-10-26] MEDS: Famotidine Inj 50 ML IV SCH (08:02)
[2016-10-26] MEDS: Insulin GLARgine 100 Unit/mL Syringe SUBQ SCH ×2 (08:03→21:22)
[2016-10-26] MEDS: MethylprednisoLONE Sodium Succinate 40 mg/mL Inj IVPUSH SCH ×3 (08:04→21:21)
[2016-10-26] MEDS: Levothyroxine 100 mCg/5 mL Inj IV SCH (08:04)
[2016-10-26] MEDS: Meropenem Inj 2,000 MG in 0.9% Sodium Chloride 100 ML IV SCH ×2 (08:06→21:22)
--- NOTE | 2016-10-26 08:07 | DRSVH ---
PROCEDURE: X-RAY CHEST ONE VIEW, PORTABLE ([id number]) INDICATIONS: COPD. intubated. ETtube positioning? TECHNIQUE: One view of the chest was acquired. COMPARISON: [facility], CR, XR CHEST 1VW (PORTABLE), 10/25/2016, 5:10. FINDINGS: Surgical changes and devices: There is an endotracheal tube 5.4 cm above the lizeth. There is a right internal jugular catheter at the junction of the superior vena cava and right atrium. There is an NG tube into the stomach. die polisher leads are seen over the chest. Lungs and pleura: Bilateral lower lung field patchy densities on the right and consolidated on the le ft are unchanged and consistent with pneumonias Mediastinum: Mediastinal contours appear normal. Heart size is normal. Bones and chest wall: No suspicious bony lesions. Overlying soft tissues appear unremarkable. IMPRESSION: Bibasilar pneumonias left greater than right unchanged. Tubes and lines appropriate in position. Dictated by: Luis Eduardo Dang M.D. on 10/26/2016 at 8:04 Approved by: Luis Eduardo Dang M.D. on 10/26/2016 at 8:05
[2016-10-26] MEDS: Norepineph 8,000 mCg/250 mL NS 8,000 MCG in IV Premix 1 EACH IV SCH (11:09)
[2016-10-26] MEDS: Budesonide 0.5 mg/2 mL Inhalation Solution NEB SCH ×2 (11:30→20:27)
--- NOTE | 2016-10-26 13:18 | NUR ---
Failed sedation/paralytic weaning trail After consulting with attending hospitalist Nimbex drip placed on standby/stopped at 0945 this morning. Within 45 min patient was opening her eyes and responding to her name. Patient was not able to follow commands/directions at the time. Her respiratory rate remained 24-26 breaths per min but her work of breathing increased - patient was "belly breathing" and she was shivering/shaking at the time as well. Her oxygen saturation decreased rapidly from 94-96% on 75% FIO2 to 88-89%. With increase of FIO2 to 80% oxygen saturation only increased to 90-91% After 2 boluses of 2ml of propofol and no changes in breathing pattern- propofol drip was increased to 40mcg/kg/min from 30mcg/kg/min and fentanyl drip was increased to 150mcg/h from 100mcg/h. After drip changes were made patient calm down to some degree but oxygen saturation did not improve- consulted with MD- Nimbex drip was resumed at 2mcg/kg/min and gradually patient returned to her prior to stopping Nimbex baseline- please see CCU flow sheet for drip titration.
--- NOTE | 2016-10-26 13:40 | PCM.PNMED ---
Subjective Date of Service Oct 26, 2016 Subjective The patient continues to improve. She was taken off the Diltiazem drip 10/25 and has been in NSR 70-80's. Her urine output and kidney function have improved with a creatinine 1.65. The only set back is that while weaning her Nimbex, her respiratory status declines. She is back on 2mcg and we will attempt to wean again. Exam Vital Signs Vital Sign - Last Date Time Temp Pulse Resp B/P Pulse Ox O2 Delivery O2 Flow Rate FiO2 10/26/16 11:37 37.2 83 24 112/56 92 Mechanical Ventilator 80 Intake and Output 10/25/16 10/25/16 10/26/16 Cumulative From/Thru 14:59 22:59 06:59 10/20/16 18:25 - 10/26/16 06:26 Intake Total 1498 ml 1208 ml 38529 ml Output Total 1100 ml 1550 ml 05052 ml Balance 398 ml -342 ml 94340 ml Intake IV Total 1312 ml 956 ml 01608 ml Tube Feeding 106 ml 132 ml 472 ml Tube Irrigant 80 ml 120 ml 321 ml Output Urine Total 1100 ml 1550 ml 9150 ml Gastric Drainage Total 955 ml # Bowel Movements 0 0 Exam General: Intubated and Sedated morbidly obese female. Head of bed is elevated to 30 degrees. HEENT: NCAT. PERRLA. Anicteric sclerae, moist conjunctivae. OG tube present. Neck: No JVD, No lymphadenopathy or thyromegaly. Cardiovascular: RRR. No murmurs/rubs. Pulmonary: On ventilator. Less crackling at the bases bilaterally. No wheezing. Abdomen: Obese, distended. Bowel sounds faint but present. No masses noted. : Tenorio catheter in place. Extremities: LE edema equal bilaterally, erythema has resolved. Skin sloughing on the posterior left LE with slight weeping fluid but no erythema. Neurological: Sedated. unable to evaluate Psychiatric: Sedated, unable to evaluate. IVs and Medications Medications Reviewed: Medications were reviewed in detail Lab and Diagnostics Result Diagram: 10/26/16 0510 10/26/16 05 X-Rays, CTs and MRIs CXR 10/26 IMPRESSION: Bibasilar pneumonias left greater than right unchanged. Tubes and lines appropriate in position. Dictated by: Luis Eduardo Dang M.D. on 10/26/2016 at 8:04 Approved by: Luis Eduardo Dang M.D. on 10/26/2016 at 8:05 CXR 10/25 IMPRESSION: Left lower lobe area of consolidation unchanged since the previous days film and probable patchy involvement of the right lower lobe. No changes to indicate failure are seen. Tubes and lines are thought to be appropriate in position. Dictated by: Luis Eduardo Dang M.D. on 10/25/2016 at 8:36 Approved by: Luis Eduardo Dang M.D. on 10/25/2016 at 8:38 CXR 10/24 IMPRESSION: Stable interval exam demonstrating bibasilar opacities suggestive of pneumonia. Dictated by: Ailyn Day M.D. on 10/24/2016 at 9:29 Approved by: Ailyn Day M.D. on 10/24/2016 at 9:31 CT Chest/Abd/Pelv 10/23 IMPRESSION: 1. Dense bibasilar pulmonary consolidation with small pleural effusion suspicious for aspiration/infection. 2. Small amount of intra-abdominal ascites. 3. Cholelithiasis. No definite cholecystitis; however study is limited given the lack of intravenous contrast. 4. Edematous appearance to the pancreas with peripancreatic fluid. It is unclear whether this is secondary to generalized ascites or may represent acute pancreatitis. Please correlate with laboratory values. 5. Diverticulosis. No acute diverticulitis. Dictated by: Katina Vela M.D. on 10/23/2016 at 14:09 Approved by: Katina Vela M.D. on 10/23/2016 at 14:40 Chest XR 10/22 IMPRESSION: Slightly improved aeration of the left lung base. Otherwise unchanged. Dictated by: Katina Vela M.D. on 10/22/2016 at 8:27 Approved by: Katina Vela M.D. on 10/22/2016 at 8:27 Abd US IMPRESSION: Gallstone within the gallbladder lumen, without gallbladder wall thickening. Slight amount of adjacent pericholecystic free fluid. Hepatomegaly , fatty infiltration throughout the liver. Slight amount of free fluid deep within the pelvis, not safe for ultrasound guided paracentesis. Poor visualization of significant portions of the retroperitoneum due to overlying bowel gas. X-ray from [facility] reveals new left basilar infiltrate. An improved right basilar atelectasis. Done on 10/19/16. CT abdomen pelvis without contrast performed on 10/19/16 showing cholelithiasis, pancreatitis, small amount of ascites, diverticulosis, appendectomy and hysterectomy. Cardiac Echo Impressions Echo 10/21 Technically difficult study. The left ventricle is grossly normal size with hyperdynamic function. The ejection fraction is estimated to be 65-70%. Mildly dilated left atrium. No obvious valvular abnormality. Right ventricular systolic pressure is estimated to be 35 mmHg plus the clinically estimated CVP which cannot be estimated on this exam Additional Diagnostics DateTimeAnalyzed 17:46:48 -_ pH ____7.135 - 7.350 7.450 pCO2 ___49.4__ -mmHg 35.0 45.0 pO2 143 -mmHg 70.0 100 HCO3- ___16.6__ -mmol/L 22.0 26.0 Assessment & Plan Assessment & Plan Patient is a 61-year-old female with medical history significant for COPD, hypertension, bipolar/depression, and morbidly obese presented with severe pancreatitis, intubated for airway protection, and possibly developing ARDS. ICU day 7. Anion gap metabolic acidosis, present on admission, acute. Stable. - Likely due to JOHN PAUL, sepsis and concomitant respiratory acidosis - Salicylates negative, methyl alcohol, lactic acid, ethylene glycol negative - Attempt Nimbex wean as tolerated - Gap hovering between 15-18; Sodium Acetate drip was dc'd 10/25 Pancreatitis, present on admission, acute. Ongoing. - Possible gallstones pathology, or less likely drug/toxin induced. - US abdomen ordered, gallstone present but no conclusive evidence - Fluids stopped as patient seemed to be overloaded, +14L positive - Fentanyl drip per ICU team; consider attempting weaning off depending on how Nimbex wean proceeds - Increased Lantus to 15 units - Consider adding insulin to control blood glucose Metabolic encephalopathy, present on admission, acute. Ongoing. - Intubated for airway protection - possible ARDS or air trapping due to severe COPD. - Echocardiogram as above - Continue Duoneb plus Pulmocort to protect airway, changed from BID to QID per ICU team - Daily ABG's - Nimbex wean failed 10/26. Will reattempt again when ventilation status recovers. Severe Sepsis, present on admission, acute. Improving. - Patient met SIRS criteria, likely source cellulitis of LE - Patient has been off pressors and maintaining stable pressures for days now - Blood, urine cultures continue to be negative - Per ID, continue Meropenem and Clindamycin until 10/29 Cellulitis, present on admission, acute. Improving. - Bilateral LE improved, no erythema; some skin sloughing - Antibiotics as above - CT head/chest/abd/pelvis was negative for abscess, fluid collection Acute on Chronic Kidney Injury, present on admission. Improving. - Likely secondary to sepsis - Creatinine down to 1.65 - Urine output continues to be adequate - Avoid nephrotoxic medications Atrial Fibrillation with RVR, not present on admision, acute. Resolved. - Patient converted to NSR with HR 80-90 - Diltiazem drip discontinued and she is stable NSR 70-80's - [id number] score is 2 (female 1, HTN 1); patient is currently on Lovenox prophylactically Acetaminophen for mild pain, fever, headache when necessary. Bowel regimen Senna and MiraLAX scheduled as necessary. Zofran when necessary for nausea and vomiting. Sub-Q Lovenox every 12 hours. SCD's contraindicated due to LE cellulitis. Disposition: The patient will likely be here through the weekend depending on her continued stability as she is weaned off the ventilator and maintaining her pressures without support. VTE Prophylaxis: Sub-Q Enoxaparin VTE Mechanical Devices: Intermittant Pneumatic CD Resuscitation Status: Limited Interventions (DO NOT RESUSCITATE) Limited Interventions: Intubation w Mech Vent, Medications and IV Fluid Attending Statement The patient was seen and examined together with Dr. Castillo on 10/26/16 and I agree with the history, exam and plan as outlined in the note above. Sadi Castillo DO Oct 26, 2016 13:40 Rosa M Abbasi DO Oct 30, 2016 16:32 - WBC trending down - ASO negative, cultures negative thus far. - Antibiotic regiment to clindamycin and daptomycin per Dr. Hardin Hemodynamics Distributed shock, resolved - Possible sepsis, less likely pancreatitis - Fluid resuscitated. Lactic acid wnl - Off pressors Paroxysmal atrial fibrillation, ongoing - Currently normal sinus, some concern for recurrence given acidotic state - Continue Cardizem drip, consider d/c tmrw if metabolic acidosis improves Hematology Leukocytosis - Possible infectious cause in addition to steroid use Normocytic anemia - Hemoglobin stable - Monitor, transfuse if hemoglobin less than 7 DVT prophylaxis - Lovenox subcutaneous Metabolic Anion gap metabolic acidosis, improving - Negative ketones, lactic acids, normal osmolar gap - Likely a combination of respiratory acidosis and renal failure - d/c sodium acetate drip Acute on chronic kidney injury - Baseline creatinine 1.4, secondary to distributive shock, dehydration - Urine output increase - Monitor electrolyte Alimentary Pancreatitis - Continue IV pain medication and hydration - Start trophic feeding - Trend lipase in the setting of pancreatitis GI prophylaxis - Famotidine Neurologic - Intubated, sedated, paralyzed - Ween down nimbex as above - Consider sedation holiday once Nimbex off Total time spent 1 hour. VTE Prophylaxis: Sub-Q Enoxaparin VTE Mechanical Devices: Intermittant Pneumatic CD Resuscitation Status: Limited Interventions (DO NOT RESUSCITATE) Limited Interventions: Intubation w Mech Vent, Medications and IV Fluid Sadi Castillo DO Oct 26, 2016 13:40
--- NOTE | 2016-10-26 17:42 | NUR ---
Tube feeding Tube feeding residuals 50-80ml checked Q4h and PRN. Unable to wean off/stop nimbex drip- consulted with it program engagement director- continue tube feeding at 10ml/h for the next 24h, reassess tomorrow if appropriate for rate increase- MD aware. HOB up 30 to 40 degrees, continue assessment.
[2016-10-26] MEDS ORDERED: Albuterol 1.25 mg/3 mL Inhalation Solution NEB PRN (20:40)
[2016-10-26] MEDS ORDERED: Albuterol 0.5% (5mg/mL) 20 mL Inhalation Solution NEB PRN (20:52)
[2016-10-26] MEDS: Nystatin 100,000 Unit/mL 5 mL Suspension PO PRN (21:22)
[2016-10-27] VITALS (13 sets, daily range): BP systolic 117–144; BP diastolic 53–62; PULSE 71–92; RESP 22–28; O2SAT 92–97
[2016-10-27] MEDS: Ipratropium 0.02% 0.5 mg/2.5 mL Inhalation Solution NEB SCH ×3 (00:37→08:39)
[2016-10-27] MEDS: Propofol Inj 1,000,000 MCG in IV Premix 1 EACH IV SCH ×7 (01:32→23:11)
[2016-10-27] MEDS: Chlorhexidine 0.12% 15 mL Oral Solution MT SCH ×6 (01:32→20:36)
[2016-10-27] MEDS: Clindamycin Inj 900 MG in IV Premix 1 EACH IV SCH ×3 (01:33→15:51)
[2016-10-27] MEDS: fentaNYL 2,500 mCg/250 mL 2,500 MCG in IV Premix 1 EACH IV PRN ×2 (04:09→19:09)
[2016-10-27] MEDS: Norepineph 8,000 mCg/250 mL NS 8,000 MCG in IV Premix 1 EACH IV SCH ×2 (04:23→21:37)
[2016-10-27] MEDS: Cisatracurium Inj 200,000 MCG in 0.9% Sodium Chloride-Pha MIX 100 ML IV SCH ×4 (04:35→19:15)
--- NOTE | 2016-10-27 04:59 | ABG ---
DateTimeAnalyzed 04:51:00 -_ pH ____7.255 - 7.350 7.450 pCO2 ___56.3__ -mmHg 35.0 45.0 pO2 ___84.6__ -mmHg 69.0 116 HCO3- ___24.1__ -mmol/L 22.0 26.0 ABE ___-2.8__ -mmol/L -2.0 2.0 tHb ____9.6__ -g/dL O2Hb ___92.5__ -% COHb ____0.9__ -% MetHb ____1.0__ -% sO2 ___94.3__ -% FIO2 ___80.0__ -% PRVC 24 - PEEP ___10.0__ -cmH2O Set_RR ___24.0__ -b/min Vt __400.0__ -L Drawn By MM - Date/Time Notified____ 04:58:00 -_ Spontaneous_RR ___24.0__ -b/min Notified By MM - Notified Whom GEORGINA, RN - B 763 -mmHg tO2 ___12.5__ -Vol% Ruben test N/A -
[2016-10-27 05:33] LABS: EOSINOPHILS % (AUTO) 0 % (0-5)
[2016-10-27 05:43] LABS: Mean Corpuscular Hemoglobin 29.2 pg (27.0-35.0); Mean Corpuscular Volume 95.3 fL (81-100)
[2016-10-27 06:08] LABS: NEUTROPHILS % (AUTO) 85 % (40-74)
[2016-10-27 06:09] LABS: BASOPHILS % (AUTO) 0 % (0-3); MONOCYTES % (AUTO) 3 % (4-12)
[2016-10-27 06:23] LABS: Magnesium 2.4 mg/dL (1.6-2.6); Phosphorus 5.2 mg/dL (2.5-4.9)
[2016-10-27] MEDS: MethylprednisoLONE Sodium Succinate 40 mg/mL Inj IVPUSH SCH ×4 (06:31→20:37)
[2016-10-27] MEDS: Diltiazem 125 mg/125 mL D5W IV SCH ×2 (07:00)
[2016-10-27] MEDS: Famotidine Inj 50 ML IV SCH (07:42)
[2016-10-27] MEDS: Thiamine Inj 200 MG in Dextrose 5% 50 ML IV SCH (07:42)
[2016-10-27] MEDS: Levothyroxine 100 mCg/5 mL Inj IV SCH (07:42)
[2016-10-27] MEDS: Insulin GLARgine 100 Unit/mL Syringe SUBQ SCH ×2 (07:50→20:37)
[2016-10-27] MEDS: Meropenem Inj 2,000 MG in 0.9% Sodium Chloride 100 ML IV SCH ×2 (07:51→20:36)
--- NOTE | 2016-10-27 08:33 | DRSVH ---
PROCEDURE: X-RAY CHEST ONE VIEW, PORTABLE ([id number]) INDICATIONS: hypoxemic, hypercarbic respiratory failure TECHNIQUE: One view of the chest was acquired. COMPARISON: None. FINDINGS: Surgical changes and devices: Endotracheal tube, nasogastric tube and right-sided central venous cath eter are unchanged. Lungs and pleura: There is an overall appearance of increased pulmonary vascularity more prominent wh en compared to prior exam. There is increased appearance of right basilar and left upper lobe and ret rocardiac opacities. Mediastinum: Mediastinal contours appear normal. Heart size is normal. Bones and chest wall: No suspicious bony lesions. Overlying soft tissues appear unremarkable. IMPRESSION: Increased vascularity suggestive of edema. Focal opacities are present as identified abov e suggestive of pneumonia. Superimposed areas of edema and/or atelectasis cannot be excluded. Likely superimposed mild left and minimal right pleural effusion is noted. Dictated by: Ailyn Day M.D. on 10/27/2016 at 8:27 Approved by: Ailyn Day M.D. on 10/27/2016 at 8:31
[2016-10-27] MEDS: Budesonide 0.5 mg/2 mL Inhalation Solution NEB SCH ×2 (08:39→21:21)
[2016-10-27] MEDS: Albuterol-Ipratropium 3 mL Inhalation Solution NEB SCH ×3 (12:00→21:21)
--- NOTE | 2016-10-27 15:27 | NUR ---
Social Work: Attempted Assessment/Multidisciplinary Rounds D: Pt discussed in am rounds. Pt remains in CCU, vented however improving. No timeframe provided for anticipated extubation. PROFILE SAW SETUP OPERATOR has attempted to make bedside contact with the patient's son during her admission with no success. Pt is on day 7 of stay. t/c to Pt's son to attempt assessment and explain rights under Medicare. No answer. PROFILE SAW SETUP OPERATOR left message requesting return phone call. Per EMR review, pt was previously living at home with her son. EMR states that prior to admission the pt's son had noted that the pt had become increasingly weak with decreased mobility. No further information provided about the patient's previous/baseline functioning. A: Pt who lives at home with her son. P: Evolving; PROFILE SAW SETUP OPERATOR to continue to attempt contact with pt's son to complete IA. FAITH [place]
--- NOTE | 2016-10-27 15:30 | NUR ---
BROOKE Attempted. Left message for pt's son to contact to explain BROOKE.
[2016-10-27] MEDS ORDERED: Furosemide 10 mg/mL 4 mL Inj IVPUSH ONE (17:15)
[2016-10-27] MEDS ORDERED: Methylnaltrexone 12 mg/0.6 mL Inj SUBQ ONE (17:15)
[2016-10-27] MEDS ORDERED: Dexmedetomidine Inj 400 MCG in 0.9% Sodium Chloride 100 ML IV SCH (17:20)
--- NOTE | 2016-10-27 17:34 | PCM.PNMED ---
Subjective Date of Service Oct 27, 2016 Subjective Family meeting today with decision for compassionate extubation. Exam Vital Signs Vital Sign - Last Date Time Temp Pulse Resp B/P Pulse Ox O2 Delivery O2 Flow Rate FiO2 10/27/16 15:25 36.9 85 22 124/58 94 Mechanical Ventilator 80 Intake and Output 10/26/16 10/26/16 10/27/16 Cumulative From/Thru 15:00 23:00 07:00 10/20/16 18:25 - 10/27/16 06:52 Intake Total 1223 ml 1163 ml 94859 ml Output Total 1250 ml 1900 ml 15337 ml Balance -27 ml -737 ml 29061 ml Intake IV Total 996 ml 931 ml 34823 ml Tube Feeding 107 ml 127 ml 706 ml Tube Irrigant 120 ml 105 ml 546 ml Output Urine Total 1250 ml 1900 ml 75666 ml Gastric Drainage Total 955 ml # Bowel Movements 0 0 Exam General: Intubated and Sedated morbidly obese female. Head of bed is elevated to 30 degrees. HEENT: NCAT. PERRLA. Anicteric sclerae, moist conjunctivae. OG tube present. Neck: No JVD, No lymphadenopathy or thyromegaly. Cardiovascular: RRR. No murmurs/rubs. Pulmonary: On ventilator. Less crackling at the bases bilaterally. No wheezing. Abdomen: Obese, distended. Bowel sounds faint but present. No masses noted. : Tenorio catheter in place. Extremities: LE edema equal bilaterally, erythema has resolved. Skin sloughing on the posterior left LE with slight weeping fluid but no erythema. Neurological: Sedated. unable to evaluate Psychiatric: Sedated, unable to evaluate. IVs and Medications Medications Reviewed: Medications were reviewed in detail Lab and Diagnostics Result Diagram: 10/27/1651410/27/1615 X-Rays, CTs and MRIs CXR 10/26 IMPRESSION: Bibasilar pneumonias left greater than right unchanged. Tubes and lines appropriate in position. Dictated by: Luis Eduardo Dang M.D. on 10/26/2016 at 8:04 Approved by: Luis Eduardo Dang M.D. on 10/26/2016 at 8:05 CXR 10/25 IMPRESSION: Left lower lobe area of consolidation unchanged since the previous days film and probable patchy involvement of the right lower lobe. No changes to indicate failure are seen. Tubes and lines are thought to be appropriate in position. Dictated by: Luis Eduardo Dang M.D. on 10/25/2016 at 8:36 Approved by: Luis Eduardo Dang M.D. on 10/25/2016 at 8:38 CXR 10/24 IMPRESSION: Stable interval exam demonstrating bibasilar opacities suggestive of pneumonia. Dictated by: Ailyn Day M.D. on 10/24/2016 at 9:29 Approved by: Ailyn Day M.D. on 10/24/2016 at 9:31 CT Chest/Abd/Pelv 10/23 IMPRESSION: 1. Dense bibasilar pulmonary consolidation with small pleural effusion suspicious for aspiration/infection. 2. Small amount of intra-abdominal ascites. 3. Cholelithiasis. No definite cholecystitis; however study is limited given the lack of intravenous contrast. 4. Edematous appearance to the pancreas with peripancreatic fluid. It is unclear whether this is secondary to generalized ascites or may represent acute pancreatitis. Please correlate with laboratory values. 5. Diverticulosis. No acute diverticulitis. Dictated by: Katina Vela M.D. on 10/23/2016 at 14:09 Approved by: Katina Vela M.D. on 10/23/2016 at 14:40 Chest XR 10/22 IMPRESSION: Slightly improved aeration of the left lung base. Otherwise unchanged. Dictated by: Katina Vela M.D. on 10/22/2016 at 8:27 Approved by: Katina Vela M.D. on 10/22/2016 at 8:27 Abd US IMPRESSION: Gallstone within the gallbladder lumen, without gallbladder wall thickening. Slight amount of adjacent pericholecystic free fluid. Hepatomegaly , fatty infiltration throughout the liver. Slight amount of free fluid deep within the pelvis, not safe for ultrasound guided paracentesis. Poor visualization of significant portions of the retroperitoneum due to overlying bowel gas. X-ray from [facility] reveals new left basilar infiltrate. An improved right basilar atelectasis. Done on 10/19/16. CT abdomen pelvis without contrast performed on 10/19/16 showing cholelithiasis, pancreatitis, small amount of ascites, diverticulosis, appendectomy and hysterectomy. Cardiac Echo Impressions Echo 10/21 Technically difficult study. The left ventricle is grossly normal size with hyperdynamic function. The ejection fraction is estimated to be 65-70%. Mildly dilated left atrium. No obvious valvular abnormality. Right ventricular systolic pressure is estimated to be 35 mmHg plus the clinically estimated CVP which cannot be estimated on this exam Additional Diagnostics DateTimeAnalyzed 17:46:48 -_ pH ____7.135 - 7.350 7.450 pCO2 ___49.4__ -mmHg 35.0 45.0 pO2 143 -mmHg 70.0 100 HCO3- ___16.6__ -mmol/L 22.0 26.0 Assessment & Plan Patient is a 61-year-old female with medical history significant for COPD, hypertension, bipolar/depression, and morbidly obese presented with severe pancreatitis, intubated for airway protection, possibly developing ARDS. Family meeting today with decision for compassionate extubation tomorrow or Friday. Metabolic encephalopathy, present on admission, acute. Ongoing. - Intubated for airway protection. - Possible ARDS or air trapping due to severe COPD. - Echocardiogram as above. - Continue Duoneb plus Pulmocort to promote airway patency. - Obtain Arterial line for ABG and hydrodynamics monitoring. Severe Sepsis, present on admission, acute. Improving. - Patient met SIRS criteria, possible source cellulitis of LE. - Fluids, antibiotics as above. - Positive Streptozyme. - Blood, urine cultures negative thus far. - ID consulted for concerns of possible mycobacteria infection, appreciate their recommendations. Pancreatitis, present on admission, acute. Resolved. - Source currently unclear. Possible gallstones pathology, or less likely drug/toxin induced. - Continue Fentyl drip for pain. - NG tube in place, keep NPO for now. Cellulitis, present on admission, acute. Ongoing. - Bilateral LE erythematous and warm, reportedly worse with recent pedicure and "diabetic exfoliation scrubs" 3 days prior to admission. - Continue Cefepime. - ID following, appreciate their recommendations. Acute on Chronic Kidney Injury, present on admission. Ongoing. - Likely secondary to sepsis. - Urine output currently 0.3cc/kg/hr. - Fluids as above. - Avoid nephrotoxic medications as necessary. Anion gap metabolic acidosis, present on admission, acute. - Likely due to JOHN PAUL, sepsis. - Salicylates negative. - Ethylene glycol, methyl alcohol pending. Acetaminophen for mild pain, fever, headache when necessary. Bowel regimen Senna and MiraLAX scheduled as necessary. Zofran when necessary for nausea and vomiting. Sub-Q Lovenox every 12 hours. SCD's contraindicated due to LE cellulitis. Disposition: The patient will have compassionate extubation tomorrow or Friday depending on family availability Pain Evaluation: Adequate Pain Control VTE Prophylaxis: Sub-Q Enoxaparin VTE Mechanical Devices: Intermittant Pneumatic CD Resuscitation Status: DNR/DNI:Do Not Resuscitate/Intubate (DO NOT RESUSCITATE) Limited Interventions: Intubation w Mech Vent, Medications and IV Fluid Attending Statement The patient was seen and examined together with Dr. Major on 10/27/16 and I have added additional information to the note above. GENE MAJOR DO Oct 27, 2016 16:05 Rosa M Abbasi DO Oct 30, 2016 14:34
[2016-10-27] MEDS: Dexmedetomidine 400 mCg/100 mL 400 MCG in IV Premix 1 EACH IV SCH (18:04)
--- NOTE | 2016-10-27 18:19 | PROG NOTE ---
[address] [address] PROGRESS NOTE PATIENT: AMYKEL MCDANIEL : 1955 MR#: [id number] ADMIT: 10/20/2016 JOB ID: [id number] DATE: 10/27/2016 PROBLEM LIST: 1. Acute on chronic hypoxemic hypercarbic respiratory failure. 2. COPD, severe. 3. Metabolic acidemia. 4. Cellulitis. 5. Acute on chronic kidney injury. 6. Hypertension. 7. Morbid obesity. 8. Pancreatitis. SUBJECTIVE: None. OBJECTIVE: Temperature 36.9. Pulse 85. Respiratory rate 22 with ventilator set at 22. Blood pressure 124/58, off pressors. O2 sat on FiO2 of 80%, PEEP of 12 is 94%. I and O shows 2.4 L in, 2.8 L out. General appearance: Heavily sedated on paralytics. Pupils about 2 mm. Nose and throat could not be examined. Chest: Moderately distant breath sounds. Lung villarreal are clear in the anterolateral lung villarreal. With tidal volume of 400, rate of 22, FiO2 of 0.8 and PEEP of 13, peak inspiratory pressure 33, plateau 23. PEEP is set at 13, measured at 13. Heart: Regular rhythm. Heart tones seem normal. Vigileo monitoring indicates a stroke volume of 120 mL per beat and SVV of 3. Cardiac index of 4.2 L a minute and SVRI of 1261. Abdomen soft. Somewhat distended. Apparently without bowel movement during at least the past seven days. Extremities: 2+ pretibial edema. LABORATORY DATA: Shows a white count of 21,300 and slowly rising. Eighty-five polymorphonuclears, 2 bands, 3 metamyelocytes. Seven lymphs, 3 monocytes. Hemoglobin stable at 9.4. Platelet count unable to enumerate secondary to platelet clumping. Sodium 145, potassium 4.4, chloride 110, CO2 is 21, BUN 63 and stable. Creatinine 1.18 and falling. Calcium normal at 8.5. Albumin 2.9. Phosphorus mildly elevated at 5.2, upper limits normal being 4.9. Magnesium normal at 2.4. Total bilirubin 0.2. AST 17, ALT of 12, alkaline phos 53. Procalcitonin is normal at 0.06 though never was particularly elevated, with the highest value recorded of 0.15, 48 hours ago. Chest x-ray shows some increased pulmonary vascularity with increased appearance of the ill-defined opacities in the right basilar as well as the left upper and lower lung villarreal. Arterial blood gases on FiO2 0.8, PEEP of 10, rate of 24, and a tidal volume of 400 shows pO2 of 84, pCO2 of 56, pH 7.25. PEEP was set at 10, though measured at 18. Loops on ventilator show severe expiratory airflow obstruction. ASSESSMENT: 1. Chronic obstructive pulmonary disease. Doing very poorly with regard to her COPD. Within the week's time, there has been no improvement in her airway in spite of inhaled bronchodilators as well as inhaled and IV steroids. Last night, tried to add inhaled beta agonist to her regimen. They had been withheld because of paroxysmal SVT. However, she has been relatively stable so they tried last night. Dosing was not quite what we had planned upon. Since she is tolerating that, will go to usual dosing and see how she does. 2. Agitation. Becomes extremely agitated when Nimbex is withheld. Interferes markedly with her airway obstruction. Unable to ventilate. As soon as she is awake, panics and situation deteriorates markedly. Have to sedate her into hypertension. I have chosen to sedate her heavily, maintaining hemodynamics, and if she fights the ventilator, to paralyze her. That has been our results for the past few days without any evidence of improvement. 3. Obstipation. No bowel movement for the past seven days at least. Will try bowel evacuants, especially in the face of high doses of fentanyl. 4. Agitation. Nursing would like to try dexmedetomidine to see if we could get her a bit more awake and not agitated. Not sure this is an agitation from underlying anxiety but rather response to her severe dyspnea. Will give it a try and see how we do, especially in light of the fact that nothing appears to be working particularly well. 5. Metabolic acidosis. Clearing. Most recent gases show a pretty pure respiratory acidemia without any evidence of metabolic perturbation. 6. Shock. Hemodynamics are fine. We can stop the Vigileo monitoring. 7. Renal failure. Improving nicely. Creatinine pretty much normal at this point. She remains in a fluid overload. Will try some Lasix to see if we can get some of her excess extravascular fluid off. Had a long discussion with the patient's family, notably son, [id number], and brother. Discussed the situation. Discussed the problem with her breathing. Discussed that if we were to continue on, she would probably need a tracheostomy. Also not sure of her underlying [employer] function. Tremendous amount of deconditioning present as well. After discussing a number of issues, the family indicated that the patient would not want to be in this condition. Would certainly not want a tracheostomy. They thought that, at this point, we should consider withdrawal of care. I outlined a number of scenarios for them, and the plan at the moment is to have family members come in to see her if they wish. That will probably take the next 24, possibly 36 hours. At that point, we will compassionately extubate the patient. Family says they will arrange for cremation. PLAN: 1. Discontinue Vigileo monitoring. 2. IV Lasix. 3. Nebulized DuoNeb q.4 h. 4. Dexmedetomidine. 5. Methyl naltrexone. 6. Morning bloods consist of CBC with diff, platelet count, magnesium, CMP, phosphorus, and procalcitonin. 7. ABGs in a.m. 8. DuoNeb 1 vial by nebulizer q.4 h. 9. Continue other medications. 10. Discontinue cisatracurium in a.m. and assess response to both the change in pulmonary medications as well as the change in sedatives. Time spent so far in critical care, 69 minutes.
--- NOTE | 2016-10-27 18:28 | PROG NOTE ---
[address] [address] PROGRESS NOTE PATIENT: MAYKEL MCDANIEL : 1955 MR#: [id number] ADMIT: 10/20/2016 JOB ID: [id number] DATE: 10/26/2016 PROBLEM LIST: 1. Acute on chronic hypoxemic hypercarbic respiratory failure. 2. Chronic kidney injury. 3. Morbid obesity. 4. Metabolic acidosis, anion gap. 5. Paroxysmal SVT. 6. COPD, severe. SUBJECTIVE: None. OBJECTIVE: Temperature 37, with T-max being 37.2, pulse 79-83, respiratory rate 24 with ventilator set at 24. Blood pressure 138/61. O2 sat on FiO2 of 70%, PEEP of 12 is 97%. I and O shows 3.8 L in, 1.8 L out. General appearance: Heavily sedated. On paralytics. Eyes: Pupils about 1-2 mm. Chest: Fair breath sounds bilaterally. Somewhat diminished. Clear in the anterolateral lung villarreal. PEEP is set at 10, measured at 15, at FiO2 of 80, PEEP of 10, though measured 16, O2 sat 92. With change in the PEEP to 12 and change in flows, O2 sat sg to 97%. Heart: Regular rhythm. Heart tones normal. Abdomen soft. Quiet. Slightly distended. Extremities: 2+ pretibial edema. LABORATORY DATA: Shows a white count of 17,600 with 88 polymorphonuclears, no bands, 6 lymphocytes, 6 monocytes. Hemoglobin stable at 9.1. Platelet count stable at 315,000. Sodium 144, potassium 4.1, chloride 106, CO2 is 21, BUN 63 and stable. Creatinine 1.6, down from 2.07 in past 24 hours. Calcium 8.1. Albumin 2.8. Total bilirubin 0.2, AST 22, ALT 13, alkaline phos 54. Arterial blood gases on an FiO2 is 0.8, PEEP of 10, tidal volume of 400, rate of 24, shows pO2 of 88, pCO2 of 50, pH of 7.27. Chest x-ray shows endotracheal tube 5.4 cm above the lizeth. Ill-defined opacifications in the right lower lung field with consolidation on the left. ASSESSMENT: 1. Chronic obstructive pulmonary disease. Continued to have problems with her expiratory flow and narrowed airways. The loops on the ventilator show marked slowing at times, even almost collapsed. She is getting a reasonable amount of PEEP. PO2 borderline but with an increase in the FiO2 and the changes in the mechanics a bit, O2 sats have risen to the mid 90s. She has not been having problems with supraventricular tachycardia. She is currently getting nebulized anti-muscarinics and steroids along with parenteral steroids. Cardiac rhythm has seemingly been stable the last 2-3 days. Will try adding very low doses of albuterol to the nebulized bronchodilators, considering maybe 0.5 mg to start. 2. Kidney injury. Kidney function seems improved with a drop in the creatinine. Will continue current fluid administration as kidney seems to be improving. Metabolic acidosis resolving with slowly rising bicarbonate and relatively normal electrolyte pattern. 3. Agitation. Got extremely agitated this morning when Nimbex was stopped. Will change the sedatives and fentanyl to see if we can get better control. Her agitation to me seems to be related to the airway obstruction with her severe shortness of breath leading to agitation relating to more pulmonary mechanical problems with worsening expiratory airflow. PLAN: 1. Increase fentanyl and propofol as hemodynamics allow. 2. Vent changes to improve expiratory flow. 3. Add nebulized albuterol 0.5 mg q.4 h. 4. Vent change with FiO2 0.8, PEEP of 12. Time spent in critical care, 53 minutes.
--- NOTE | 2016-10-27 19:25 | NUR ---
Note Unable to stop nimbex because of declining respiratory status. Consulted with MD patient was started on precedex drip this evening in attempt to possible wean/stop nimbex. Period of desaturation to 87-88% this afternoon MD as notified and changes/increased PEEP to 12 - oxygen saturation increased to 92-95% ranges and remained stable for the rest of the shift.
[2016-10-27] MEDS: Nystatin 100,000 Unit/mL 5 mL Suspension PO PRN (20:36)
[2016-10-28] VITALS (9 sets, daily range): BP systolic 111–151; BP diastolic 54–75; PULSE 68–73; RESP 22–27; O2SAT 95–98
[2016-10-28] MEDS: Chlorhexidine 0.12% 15 mL Oral Solution MT SCH ×5 (00:21→16:30)
[2016-10-28] MEDS: Clindamycin Inj 900 MG in IV Premix 1 EACH IV SCH ×2 (00:21→08:17)
[2016-10-28] MEDS: Albuterol-Ipratropium 3 mL Inhalation Solution NEB SCH ×5 (00:53→16:21)
[2016-10-28] MEDS: Propofol Inj 1,000,000 MCG in IV Premix 1 EACH IV SCH ×5 (02:00→15:20)
[2016-10-28] MEDS: Cisatracurium Inj 200,000 MCG in 0.9% Sodium Chloride-Pha MIX 100 ML IV SCH ×3 (02:35→17:15)
[2016-10-28] MEDS: Dexmedetomidine 400 mCg/100 mL 400 MCG in IV Premix 1 EACH IV SCH ×3 (04:16→11:45)
--- NOTE | 2016-10-28 05:34 | NUR ---
Able to wean off nimbex and increased precedex to 0.7. Pt seems a little more comfortable with the increase in precedex. Shaking appears to have stopped at this time. Urine has become very bloody this am, which is a new for this pt. Will continue to monitor closely.
--- NOTE | 2016-10-28 05:55 | ABG ---
DateTimeAnalyzed 05:49:00 -_ pH ____7.314 - 7.350 7.450 pCO2 ___52.0__ -mmHg 35.0 45.0 pO2 102 -mmHg 69.0 116 HCO3- ___25.7__ -mmol/L 22.0 26.0 ABE ___-0.3__ -mmol/L -2.0 2.0 tHb ____9.4__ -g/dL O2Hb ___95.2__ -% COHb ____1.0__ -% MetHb ____1.0__ -% sO2 ___97.1__ -% FIO2 ___80.0__ -% PRVC 22 - PEEP ___12.0__ -cmH2O Set_RR ___22.0__ -b/min Vt __400.0__ -L Drawn By MM - Date/Time Notified____ 05:55:00 -_ Spontaneous_RR ___22.0__ -b/min Oxygen Device 1 VENTILATOR - Notified By MM - Notified Whom GEORGINA, RN - B 761 -mmHg tO2 ___12.7__ -Vol% Ruben test N/A -
[2016-10-28 06:02] LABS: BASOPHILS % (AUTO) 0.2 % (0-3); EOSINOPHILS % (AUTO) 0 % (0-5); MONOCYTES % (AUTO) 6.1 % (4-12); Mean Corpuscular Hemoglobin 29.8 pg (27.0-35.0); NEUTROPHILS % (AUTO) 82.8 % (40-74); Platelet Count 293 bil/L (150-400)
[2016-10-28 06:28] LABS: Magnesium 2.5 mg/dL (1.6-2.6); Phosphorus 4.6 mg/dL (2.5-4.9)
[2016-10-28] MEDS: MethylprednisoLONE Sodium Succinate 40 mg/mL Inj IVPUSH SCH ×2 (06:49→11:50)
[2016-10-28] MEDS: Diltiazem 125 mg/125 mL D5W IV SCH ×2 (07:00)
--- NOTE | 2016-10-28 07:59 | DRSVH ---
PROCEDURE: X-RAY CHEST ONE VIEW, PORTABLE ([id number]) INDICATIONS: COPD TECHNIQUE: One view of the chest was acquired. COMPARISON: [facility], CR, XR CHEST 1VW (PORTABLE), 10/27/2016, 7:02. FINDINGS: Surgical changes and devices: ET tube, NG tube and central venous catheter stable in appearance. Lungs and pleura: Small of subpleural fluid collection noted. Focal opacities in the lung bases sugge stive of pneumonia are stable. Mediastinum: Mediastinal contours appear normal. Heart size is normal. Bones and chest wall: No suspicious bony lesions. Overlying soft tissues appear unremarkable. IMPRESSION: 1. Small left-sided pleural effusion. 2. Right basilar opacities suggestive of pneumonia stable compared to 10/27/2016. Dictated by: Nury Godinez MD, PhD on 10/28/2016 at 7:56 Approved by: Nury Godinez MD, PhD on 10/28/2016 at 7:57
[2016-10-28] MEDS: Budesonide 0.5 mg/2 mL Inhalation Solution NEB SCH (08:10)
[2016-10-28] MEDS: Famotidine Inj 50 ML IV SCH (08:17)
[2016-10-28] MEDS: Meropenem Inj 2,000 MG in 0.9% Sodium Chloride 100 ML IV SCH (08:17)
[2016-10-28] MEDS: Thiamine Inj 200 MG in Dextrose 5% 50 ML IV SCH (08:17)
[2016-10-28] MEDS: Levothyroxine 100 mCg/5 mL Inj IV SCH (08:23)
[2016-10-28] MEDS: Insulin GLARgine 100 Unit/mL Syringe SUBQ SCH (08:24)
--- NOTE | 2016-10-28 08:37 | NUR ---
Palliative care note D/A: Case discussed in PC rounds. Son had left msg over weekend requesting a mtg with PC for both himself and pt bro. He can be called at [phone]. Phone call to pt son and discuss with his spouse. Evens, pt son, is on his work phone cancelling his business for today. Plan had been for both of them to return to work today, after their two week honeymoon. Spouse notes that they spoke to male food and beverage outlets manager yesterday and have decided to withdraw care today. She indicates that mtg with PC is no longer necessary. She expects that they will arrive to [facility] sometime between 1-2, but the time is a bit up in the air. Dr. Roland alerted. Msg left for [facility] [employer]. P: Palliative care to follow. [place] FERNAND[place], [facility]
--- NOTE | 2016-10-28 10:19 | PCM.PNMED ---
Subjective Date of Service Oct 28, 2016 Subjective Overnight there were no acute events. The patient continues to make small improvements in regards to kidney function and hemodynamic stability, but her main issue is with respiratory status. The Nimbex weans throughout the weekend failed multiple times and she is now on Precedex with no improvement in ability to wean the ventilator. As her respiratory status has remained the same for some time now, the family met this weekend and have decided to extubate the patient either today or tomorrow when they are all able to be here. Exam Vital Signs Vital Sign - Last Date Time Temp Pulse Resp B/P Pulse Ox O2 Delivery O2 Flow Rate FiO2 10/28/16 08:11 64 136/68 98 80 10/28/16 08:00 36.4 23 Mechanical Ventilator Intake and Output 10/27/16 10/27/16 10/28/16 Cumulative From/Thru 14:59 22:59 06:59 10/20/16 18:25 - 10/28/16 06:45 Intake Total 1185 ml 1356 ml 63070 ml Output Total 1275 ml 2700 ml 18651 ml Balance -90 ml -1344 ml 68262 ml Intake IV Total 969 ml 1097 ml 95306 ml Tube Feeding 96 ml 139 ml 941 ml Tube Irrigant 120 ml 120 ml 786 ml Output Urine Total 1275 ml 2700 ml 44635 ml Gastric Drainage Total 955 ml # Bowel Movements 0 0 Exam General: Intubated and Sedated morbidly obese female. Head of bed is elevated. HEENT: NCAT. PERRLA. Anicteric sclerae, moist conjunctivae. OG tube present. Neck: No JVD, No lymphadenopathy or thyromegaly. Cardiovascular: RRR. No murmurs/rubs. Pulmonary: On ventilator. Slight crackles at the bases bilaterally. No wheezing. Abdomen: Obese, distended. Bowel sounds faint but present. No masses noted. : Tenorio catheter in place. Extremities: LE edema equal bilaterally, erythema has resolved. Skin sloughing on the posterior left LE has improved, no weeping noted. Neurological: Sedated. unable to evaluate Psychiatric: Sedated, unable to evaluate. IVs and Medications Medications Reviewed: Medications were reviewed in detail Lab and Diagnostics Result Diagram: 10/28/1630 10/28/1630 X-Rays, CTs and MRIs CXR 10/27 IMPRESSION: 1. Small left-sided pleural effusion. 2. Right basilar opacities suggestive of pneumonia stable compared to 10/27/2016. Dictated by: Nury Godinez MD, PhD on 10/28/2016 at 7:56 Approved by: Nury Godinez MD, PhD on 10/28/2016 at 7:57 CXR 10/26 IMPRESSION: Bibasilar pneumonias left greater than right unchanged. Tubes and lines appropriate in position. Dictated by: Luis Eduardo Dang M.D. on 10/26/2016 at 8:04 Approved by: Luis Eduardo Dang M.D. on 10/26/2016 at 8:05 CXR 10/25 IMPRESSION: Left lower lobe area of consolidation unchanged since the previous days film and probable patchy involvement of the right lower lobe. No changes to indicate failure are seen. Tubes and lines are thought to be appropriate in position. Dictated by: Luis Eduardo Dang M.D. on 10/25/2016 at 8:36 Approved by: Luis Eduardo Dang M.D. on 10/25/2016 at 8:38 CXR 10/24 IMPRESSION: Stable interval exam demonstrating bibasilar opacities suggestive of pneumonia. Dictated by: Ailyn Day M.D. on 10/24/2016 at 9:29 Approved by: Ailyn Day M.D. on 10/24/2016 at 9:31 CT Chest/Abd/Pelv 10/23 IMPRESSION: 1. Dense bibasilar pulmonary consolidation with small pleural effusion suspicious for aspiration/infection. 2. Small amount of intra-abdominal ascites. 3. Cholelithiasis. No definite cholecystitis; however study is limited given the lack of intravenous contrast. 4. Edematous appearance to the pancreas with peripancreatic fluid. It is unclear whether this is secondary to generalized ascites or may represent acute pancreatitis. Please correlate with laboratory values. 5. Diverticulosis. No acute diverticulitis. Dictated by: Katina Vela M.D. on 10/23/2016 at 14:09 Approved by: Katina Vela M.D. on 10/23/2016 at 14:40 Chest XR 10/22 IMPRESSION: Slightly improved aeration of the left lung base. Otherwise unchanged. Dictated by: Katina Vela M.D. on 10/22/2016 at 8:27 Approved by: Katina Vela M.D. on 10/22/2016 at 8:27 Abd US IMPRESSION: Gallstone within the gallbladder lumen, without gallbladder wall thickening. Slight amount of adjacent pericholecystic free fluid. Hepatomegaly , fatty infiltration throughout the liver. Slight amount of free fluid deep within the pelvis, not safe for ultrasound guided paracentesis. Poor visualization of significant portions of the retroperitoneum due to overlying bowel gas. X-ray from [facility] reveals new left basilar infiltrate. An improved right basilar atelectasis. Done on 10/19/16. CT abdomen pelvis without contrast performed on 10/19/16 showing cholelithiasis, pancreatitis, small amount of ascites, diverticulosis, appendectomy and hysterectomy. Cardiac Echo Impressions Echo 10/21 Technically difficult study. The left ventricle is grossly normal size with hyperdynamic function. The ejection fraction is estimated to be 65-70%. Mildly dilated left atrium. No obvious valvular abnormality. Right ventricular systolic pressure is estimated to be 35 mmHg plus the clinically estimated CVP which cannot be estimated on this exam Additional Diagnostics DateTimeAnalyzed 17:46:48 -_ pH ____7.135 - 7.350 7.450 pCO2 ___49.4__ -mmHg 35.0 45.0 pO2 143 -mmHg 70.0 100 HCO3- ___16.6__ -mmol/L 22.0 26.0 Assessment & Plan Patient is a 61-year-old female with medical history significant for COPD, hypertension, bipolar/depression, and morbidly obese presented with severe pancreatitis, intubated for airway protection with multiple failed weaning attempts. ICU day 9. Family has decided on compassionate extubation, will meet today (10/28) or tomorrow when all family are able to be physically present. Anion gap metabolic acidosis, present on admission, acute. Stable. - Likely due to JOHN PAUL, sepsis and concomitant respiratory acidosis - Salicylates negative, methyl alcohol, lactic acid, ethylene glycol negative - Nimbex weans continue to fail; transitioned to Precedex - Gap hovering between 15-18, likely due to respiratory status at this point Pancreatitis, present on admission, acute. Ongoing. - Possible gallstones pathology, or less likely drug/toxin induced. - US abdomen ordered, gallstone present but no conclusive evidence - Fluids stopped as patient seemed to be overloaded, +13.5L positive - Fentanyl continues to be titrated up and down with attempts to improve consciousness and ventilation - Continue Lantus 15 units Metabolic encephalopathy, present on admission, acute. Ongoing. - Intubated for airway protection, compassionate extubation as above - Likely due to air trapping due to severe COPD. - Continue Duoneb plus Pulmocort to promote airway patency - Continue ABG monitoring - Nimbex wean failed as above; Precedex on board Severe Sepsis, present on admission, acute. Resolved. - Patient met SIRS criteria, likely source cellulitis of LE - Patient off pressors and continues to be hemodynamically stable - Continue Meropenem and Clindamycin until 10/29 per ID Cellulitis, present on admission, acute. Improving. - Bilateral LE improved, no erythema; skin sloughing improved, no weepage - Antibiotics as above - CT head/chest/abd/pelvis was negative for abscess, fluid collection Acute on Chronic Kidney Injury, present on admission. Resolved. - Likely secondary to sepsis - Creatinine continues to trend down at 1.01 - Avoid nephrotoxic medications Atrial Fibrillation with RVR, not present on admision, acute. Resolved. - Patient converted to NSR with HR 80-90 - Patient has remained in NSR; continue to monitor - [id number] score is 2 (female 1, HTN 1); patient is currently on Lovenox prophylactically Acetaminophen for mild pain, fever, headache when necessary. Bowel regimen Senna and MiraLAX scheduled as necessary. Zofran when necessary for nausea and vomiting. Sub-Q Lovenox every 12 hours. SCD's contraindicated due to LE cellulitis. Disposition: The patient is to be compassionately extubated either today or tomorrow, depending on when the family can be here physically, with admission to continue if she is able to ventilate on her own on extubation. VTE Prophylaxis: Sub-Q Enoxaparin VTE Mechanical Devices: Intermittant Pneumatic CD Resuscitation Status: DNR/DNI:Do Not Resuscitate/Intubate (DO NOT RESUSCITATE) Limited Interventions: Intubation w Mech Vent, Medications and IV Fluid Attending Statement The patient was seen and examined together with Dr. Castillo on 10/28/2016 and I agree with the history, exam and plan as outlined in the note above. . Sadi Castillo DO Oct 28, 2016 10:19 Jeanmarie Dobbs MD Oct 31, 2016 08:01
--- NOTE | 2016-10-28 11:43 | NUR ---
NUTRITION FOLLOW-UP: Assess: 61 YO F admitted to CCU with severe acidosis, respiratory distress, pancreatitis, and sepsis. Pt remains intubated. Nimbex turned off. Palliative care is following. Trophic TF was started 10/23, remains at trophic rate of 10 mL/hr. Formula changed to Glucerna 1.5 on 10/25. Pt has been without adequate nutrition X 8 days. Per rounds, possible plan for compassionate extubation. PMHX: COPD, OA, osteoporosis, depression, bipolar, hep C treated w/ antiviral therapy, hx IV drug abuse. DIET: NPO. LABS: Na 148, BUN 63, Cr 1.01, Glu 154, Alb 2.9 MEDICATIONS: Reviewed. Fentanyl, Precedex, Insulin, Solu-medrol, Propofol rate currently 27.7 mL/hr, providing 731 lipid kcal. GI: No BM noted. SKIN: Leg cellulitis / edema in LE. NUTRITION SUPPORT: Glucerna 1.5 @ 10 ml/hr providing 330 kcal (1061 kcal w/propofol) and 18 g pro (60% kcal and 18% protein needs). ANTHROPOMETRICS: Wt 156.1 kg, BMI 50.8 kg/m2, Admit wt: 154.9 kg, Adj. BW: 87.3 kg, IBW:65.9 kg ESTIMATED NEEDS: VENT/BMI/JOHN PAUL Calories: 2772-3855 kcal/day (20-22 kcal/kg Adj. BW) Protein: 100-120 g/day (1.5-1.8 g/kg IBW) Fluids: ~2220-2660ml/day (25-30 ml/kg adj bw) NUTRITION DIAGNOSIS: 1) Inadequate oral intake related to decreased ability to consume sufficient energy as evidenced by NPO/vent status, enteral feeding at trophic rate - PERSISTS. INTERVENTION: 1) Will await plan of care decisions. 2) If compassionate extubation is no longer the plan, recommend advancing TF to better meet pt's estimated needs as pt has been without adequate nutrition X 8 days. Recommend Glucerna 1.5 at 10 ml/hr, advancing 5 ml every 4 hr. to goal rate 35 mL/hr. 2) Once enteral feeding advanced beyond trophic rate, recommend add 5 packets ProSource liquid protein per day; total 1155 kcal (1886 with propofol), 63 g protein (118 with ProSource), meeting 100% nutrient needs. 3) Adjust goal rate based on propofol. MONITOR/EVALUATE: NPO/Vent status, TF tolerance, BM, labs, wt, POC, GI/nutrition status. Follow per high nutrition risk guidelines.
[2016-10-28] MEDS: Norepineph 8,000 mCg/250 mL NS 8,000 MCG in IV Premix 1 EACH IV SCH (13:38)
--- NOTE | 2016-10-28 13:43 | PCM.PNMED ---
Subjective Date of Service Oct 28, 2016 Subjective Pulmonary/critical care service Jose Parker (Andrei) PGY3 and Attending Dr. Ford Patient is a 61-year-old female with medical history significant for severe COPD initially showed up to [facility] with abdominal pain, obtunded, found to have metabolic acidosis and severe pancreatitis, ultimately intubated and transferred to [facility] ICU for further medical management. Main reason for being in the unit remains hypoxic hypercapnic respiratory failure in the setting of severe COPD. ICU team is unable to ventilate her without the need for sedation. Patient has significant obstructive airway disease as evident on ventilator. Current vent setting at FiO2 80%, respiratory rate 22, PEEP of 12, tidal volume 400. Patient has 2 the 3 points auto PEEP, but significant PEEP Pplateau at 22 and PEEP peak 35-37. ABG this a.m. showed pH of 7.31, PCO2 52, PaO2 102, bicarbonate 25. Patient has made significant strides within several days, distributive shock has since resolved blood pressure currently 111/57. Acute on chronic kidney injuries has since also been resolved, patient is off bicarbonate drip, anion gap metabolic acidosis has also resolved. Most recent creatinine is 1.01 down from 2.6 Likewise, suspect cellulitis has significantly improved. Posterior left lower leg with significant improvement, non-erythema at this time. Patient without any temperature. Patient still has significant elevated WBC at 20,000, persistent throughout her stay. Exam Vital Signs Vital Sign - Last Date Time Temp Pulse Resp B/P Pulse Ox O2 Delivery O2 Flow Rate FiO2 10/28/16 11:57 63 151/75 98 80 10/28/16 08:00 36.4 23 Mechanical Ventilator Intake and Output 10/27/16 10/27/16 10/28/16 Cumulative From/Thru 15:00 23:00 07:00 10/20/16 18:25 - 10/28/16 06:45 Intake Total 1185 ml 1356 ml 47657 ml Output Total 1275 ml 2700 ml 65625 ml Balance -90 ml -1344 ml 39359 ml Intake IV Total 969 ml 1097 ml 98038 ml Tube Feeding 96 ml 139 ml 941 ml Tube Irrigant 120 ml 120 ml 786 ml Output Urine Total 1275 ml 2700 ml 95145 ml Gastric Drainage Total 955 ml # Bowel Movements 0 0 Exam General: intubated sedated. Morbidly obese, bed elevated to 30 head incline HEENT: Normocephalic, atraumatic. PERRLA, Anicteric sclerae, moist conjunctivae Neck: No JVD, No lymphadenopathy or thyromegaly. thicken neck , right central line in place Cardiovascular: Regular rate and rhythm, no murmur rub or gallop Pulmonary: b/l air sound diminished, no crackles or wheezes. Abdomen: quite bowel sound, no signs of retroperitoneal bleeding : Tenorio catheter in placed Extremities: No clubbing, cyanosis. b/l edema pitting up to the thighs, significantly worse and yesterday, left posterior lower leg wound on change in redness, right distal forearm radial arterial line in place Skin: lower legs, edematous, calor, erythema around the posterior lower leg, improved. Neurological: sedated, unable to evaluate Lab and Diagnostics Result Diagram: 10/28/16 0530 10/28/16 0530 X-Rays, CTs and MRIs CXR 10/27 IMPRESSION: 1. Small left-sided pleural effusion. 2. Right basilar opacities suggestive of pneumonia stable compared to 10/27/2016. Dictated by: Nury Godinez MD, PhD on 10/28/2016 at 7:56 Approved by: Nury Godinez MD, PhD on 10/28/2016 at 7:57 CXR 10/26 IMPRESSION: Bibasilar pneumonias left greater than right unchanged. Tubes and lines appropriate in position. Dictated by: Luis Eduardo Dang M.D. on 10/26/2016 at 8:04 Approved by: Luis Eduardo Dang M.D. on 10/26/2016 at 8:05 CXR 10/25 IMPRESSION: Left lower lobe area of consolidation unchanged since the previous days film and probable patchy involvement of the right lower lobe. No changes to indicate failure are seen. Tubes and lines are thought to be appropriate in position. Dictated by: Luis Eduardo Dang M.D. on 10/25/2016 at 8:36 Approved by: Luis Eduardo Dang M.D. on 10/25/2016 at 8:38 CXR 10/24 IMPRESSION: Stable interval exam demonstrating bibasilar opacities suggestive of pneumonia. Dictated by: Ailyn Day M.D. on 10/24/2016 at 9:29 Approved by: Ailyn Day M.D. on 10/24/2016 at 9:31 CT Chest/Abd/Pelv 10/23 IMPRESSION: 1. Dense bibasilar pulmonary consolidation with small pleural effusion suspicious for aspiration/infection. 2. Small amount of intra-abdominal ascites. 3. Cholelithiasis. No definite cholecystitis; however study is limited given the lack of intravenous contrast. 4. Edematous appearance to the pancreas with peripancreatic fluid. It is unclear whether this is secondary to generalized ascites or may represent acute pancreatitis. Please correlate with laboratory values. 5. Diverticulosis. No acute diverticulitis. Dictated by: Katina Vela M.D. on 10/23/2016 at 14:09 Approved by: Katina Vela M.D. on 10/23/2016 at 14:40 Chest XR 10/22 IMPRESSION: Slightly improved aeration of the left lung base. Otherwise unchanged. Dictated by: Katina Vela M.D. on 10/22/2016 at 8:27 Approved by: Katina Vela M.D. on 10/22/2016 at 8:27 Abd US IMPRESSION: Gallstone within the gallbladder lumen, without gallbladder wall thickening. Slight amount of adjacent pericholecystic free fluid. Hepatomegaly , fatty infiltration throughout the liver. Slight amount of free fluid deep within the pelvis, not safe for ultrasound guided paracentesis. Poor visualization of significant portions of the retroperitoneum due to overlying bowel gas. X-ray from [facility] reveals new left basilar infiltrate. An improved right basilar atelectasis. Done on 10/19/16. CT abdomen pelvis without contrast performed on 10/19/16 showing cholelithiasis, pancreatitis, small amount of ascites, diverticulosis, appendectomy and hysterectomy. Cardiac Echo Impressions Echo 10/21 Technically difficult study. The left ventricle is grossly normal size with hyperdynamic function. The ejection fraction is estimated to be 65-70%. Mildly dilated left atrium. No obvious valvular abnormality. Right ventricular systolic pressure is estimated to be 35 mmHg plus the clinically estimated CVP which cannot be estimated on this exam Additional Diagnostics DateTimeAnalyzed 17:46:48 -_ pH ____7.135 - 7.350 7.450 pCO2 ___49.4__ -mmHg 35.0 45.0 pO2 143 -mmHg 70.0 100 HCO3- ___16.6__ -mmol/L 22.0 26.0 Assessment & Plan Patient is a 61-year-old female with medical history significant for severe COPD initially admitted for pancreatitis from [facility], status post intubation for decreased mentation, currently in ICU day 5. Problem list # Metabolic acidosis # Ventilator dependent respiratory failure # COPD Patient has significant COPD, relying on the vent, requiring sedation otherwise patient will autopeep. And as a consequence of sedation, we are unable to evaluate mentation. EEG does not show seizure like pattern. Family aware of situation and consider compassionate extubation per conversation with Dr. Ford and the primary care team. Respiratory Ventilation Dependent Respiratory failure in the setting of severe COPD - Tolerating the vent with Precedex, propofol and fentanyl. - Current that setting FiO2 80%, R 22, PEEP 12, tidal volume 400. - Ween down sedation possible to assess mentation. - Otherwise, will respect family's wishes to compassionate extubate the patient COPD exacerbation - History of cigarette smoke, currently weed on a daily basis - Continue ipratropium and Pulmicort - Solu-Medrol 60 mg BID today, need to change to QD tomorrow. Infectious Cellulitis of the left lower leg, improving - WBC trending down - ASO negative, cultures negative thus far. - Antibiotic regiment to clindamycin and daptomycin per Dr. Hardin Hemodynamics Distributed shock, resolved - Possible sepsis, less likely pancreatitis - Fluid resuscitated. Lactic acid wnl - Off pressors Paroxysmal atrial fibrillation, ongoing - Currently normal sinus - Cardizem drip has been D/C Hematology Leukocytosis - Possible infectious cause in addition to steroid use Normocytic anemia - Hemoglobin stable - Monitor, transfuse if hemoglobin less than 7 DVT prophylaxis - Lovenox subcutaneous Metabolic Anion gap metabolic acidosis, resolved - Negative ketones, lactic acids, normal osmolar gap - Likely a combination of respiratory acidosis and renal failure - d/c sodium acetate drip Acute on chronic kidney injury, resolved - Baseline creatinine 1.4, secondary to distributive shock, dehydration - Urine output increase - Monitor electrolyte Alimentary Pancreatitis - Continue IV pain medication and hydration - Start trophic feeding - Trend lipase in the setting of pancreatitis GI prophylaxis - Famotidine Neurologic - Intubated, sedated - EEG does not show evidence of seizure like activities - No significant gains mentation other than agitation with the decrease in sedation - We will try to decrease sedation as above. Total critical care time 35 minutes VTE Prophylaxis: Sub-Q Enoxaparin VTE Mechanical Devices: Intermittant Pneumatic CD Resuscitation Status: DNR/DNI:Do Not Resuscitate/Intubate (DO NOT RESUSCITATE) Limited Interventions: Intubation w Mech Vent, Medications and IV Fluid Jose Parker DO Oct 28, 2016 13:43
--- NOTE | 2016-10-28 14:33 | NUR ---
Social Work Note: Multidisciplinary Rounds/Cont. Discharge Planning Data& Assessment: Pt was discussed in AM rounds today. Per MD, pt family has decided to withdraw care and pt will be extubated today likely. SW available for any pt or pt family needs should they arise. No MD orders identified. Plan: Per pt will be compassionately extubated today. SW to continue to follow should any needs arise. FAITH Flores
[2016-10-28] MEDS ORDERED: Atropine 1% 5 mL Ophthalmic Solution PO PRN (14:55)
[2016-10-28] MEDS ORDERED: Glycopyrrolate 0.2 MG/ML 1mL Inj IVPUSH PRN (14:55)
[2016-10-28] MEDS ORDERED: fentaNYL 2,500 mCg/250 mL 2,500 MCG in IV Premix 1 EACH IV SCH (14:55)
[2016-10-28] MEDS ORDERED: fentaNYL-PF 50 mCg/mL 2 mL Inj IVPUSH PRN ×2 (14:55)
[2016-10-28] MEDS ORDERED: LORazepam 100 mg/100 mL NS 100 MG in IV Premix 1 EACH IV PRN (15:30)
--- NOTE | 2016-10-28 16:12 | PCM.PALLBR ---
Palliative Care Recommendation Summary of palliative recommendations: 10/28/16-[facility]- her son is requesting change to comfort care and compassionate extubation. He recognizes poor prognosis for meaningful recovery. Reviewed comfort care. Orders written to reflect that goal. Family nor pt interested (per son) in automobile body repairer visit. Dr. Ford and team notified of request and change in status. Multiple family members visiting. Reviewed expected course with her son Evens and Debra - . 10/24/16-Patient remains critically ill but 2 days of some improvement. CODE STATUS determined by family DO NOT RESUSCITATE. She remains intubated. Renal function and acidosis improving Again reviewed with family severity of lung disease and possibility of needing to make a decision regarding prolonged ventilation if she continues to improve. Family is comfortable with not escalating treatment further if she deteriorates We will continue to follow patient in ICU. -Symptom management (Pain/other) Dyspnea-managed on vent with evidence of pneumonia and continued respiratory failure Hypotension- improving Acidosis persisting- metabolic and respiratory. Profound debility -DPOA/Advanced Directives/POLST-family request DNR on her behalf--this is a change. -Family/emotional support--extremely supportive family -Spiritual support-family nor pt interested in this Family conference with decision to continue with aggressive care up to but not including CPR. OK to remain on vent for now but to re-address this in the next couple of days. Her son, ASIF and brother request a review if she shows signs of any deterioration for another review of goals with consideration at that time to possibly withdraw support.. Additional Medical Diagnoses with primary management by Hospitalist team include : Pancreatitis Nutrition Respiratory support for respir failure Sepsis picture with increasing leukocytosis and acidosis and hypotension etc. ARF on CRF Problems: End of Life Preferences now DNR--still intubated but family requests short term only Disposition TBD Resuscitation Status Resuscitation Status: DNR/DNI:Do Not Resuscitate/Intubate (DO NOT RESUSCITATE) POLST Updates/Changes Previous POLST?: No POLST Discussed with: Health Care Agent (DPOAHC) (son) . Advanced Care Planning Address: Code status change, Comfort care Total time 45 minutes; >50% face to face with patient and/or family, providing counselling regarding plans and recommendations, and in care coordination with his/her medical teams. including discussion with family, coordination of care and managing orders I also spent an additional [ ] minutes counseling for advanced care planning with the patient/the patients family/the surrogate decision maker. copies to: Brannon Fournier MD Palliative Brief Note Date of Service Oct 28, 2016 . 61 yo admitted with respiratory failure and severe COPD, acidosis and renal failure Renal fxn has improved but not able to make much progress on weaning from vent. Conference with family- son DENISE and her brother noting progressive debility and weakness. She had made a number of requests to her family recently knowing she was getting weaker --that she did not want to be maintained on vent or sustain a prolonged hospitalization. Discussion with family re decision on trach would be needed in 1-2 weeks. Her son feels she would not want that or to prolong her support at this stage. She remains intubated, sedated but can move toes and briefly open eyes. She remains on high flow O2-80% and PEEP. she has had aggressive treatment for sepsis, fluid managment etc. O: intubated, comfortable, occ wiggles L foot. lungs- clear ant COR- RR abd - obese CR now normalized. Fe Roland MD Oct 28, 2016 16:12
[2016-10-28] MEDS ORDERED: LORazepam 100 mg/100 mL Drip IV PRN ×2 (16:20)
--- NOTE | 2016-10-28 17:57 | NUR ---
Comfort care. Extubated per family wishes at 1650, comfort care per palliative medicine team. Remains unresponsive, appears comfortable and in no distress. Family at bedside briefly. [facility] updated this morning, patient rules out for any donation due to Hep C status.
--- NOTE | 2016-10-28 21:27 | NUR ---
Pt at 191. Dr. Sheehan notified. Family notified [facility] notified, pt. is not eligible for donation. All lines/tubes removed. Family request for [employer] for home. home contacted and aware. Belongings sent with pt. to [facility].
--- NOTE | 2016-10-29 11:56 | PCM.DC.MEX ---
Discharge Summary Date of Service Oct 29, 2016 Dates of Hospitalization Date of Hospital Admission Oct 20, 2016 at 17:43 Date of Expiration: Oct 28, 2016 Time of Expiration: 19:14 Providers: Admitting Physician: Ruben Villanueva MD Primary Care Physician: Brannon Fournier MD Attending Physician: Rosa M Abbasi DO Diagnosis at Time of Acute on Chronic Respiratory failure likely secondary to COPD exacerbation, ventilator dependent Additional Diagnosis Anion gap metabolic acidosis Pancreatitis Metabolic encephalopathy Severe Sepsis Cellulitis Acute on Chronic Kidney Injury Atrial Fibrillation with RVR Consultations Dr. Martinez, Nephrology Dr. Jaime, Pulmonology/Critical Care Procedures XRay, CTs & MRIs CXR 10/27 IMPRESSION: 1. Small left-sided pleural effusion. 2. Right basilar opacities suggestive of pneumonia stable compared to 10/27/2016. Dictated by: Nury Godinez MD, PhD on 10/28/2016 at 7:56 Approved by: Nury Godinez MD, PhD on 10/28/2016 at 7:57 CXR 10/26 IMPRESSION: Bibasilar pneumonias left greater than right unchanged. Tubes and lines appropriate in position. Dictated by: Luis Eduardo Dang M.D. on 10/26/2016 at 8:04 Approved by: Luis Eduardo Dang M.D. on 10/26/2016 at 8:05 CXR 10/25 IMPRESSION: Left lower lobe area of consolidation unchanged since the previous days film and probable patchy involvement of the right lower lobe. No changes to indicate failure are seen. Tubes and lines are thought to be appropriate in position. Dictated by: Luis Eduardo Dang M.D. on 10/25/2016 at 8:36 Approved by: Luis Eduardo Dang M.D. on 10/25/2016 at 8:38 CXR 10/24 IMPRESSION: Stable interval exam demonstrating bibasilar opacities suggestive of pneumonia. Dictated by: Ailyn Day M.D. on 10/24/2016 at 9:29 Approved by: Ailyn Day M.D. on 10/24/2016 at 9:31 CT Chest/Abd/Pelv 10/23 IMPRESSION: 1. Dense bibasilar pulmonary consolidation with small pleural effusion suspicious for aspiration/infection. 2. Small amount of intra-abdominal ascites. 3. Cholelithiasis. No definite cholecystitis; however study is limited given the lack of intravenous contrast. 4. Edematous appearance to the pancreas with peripancreatic fluid. It is unclear whether this is secondary to generalized ascites or may represent acute pancreatitis. Please correlate with laboratory values. 5. Diverticulosis. No acute diverticulitis. Dictated by: Katina Vela M.D. on 10/23/2016 at 14:09 Approved by: Katina Vela M.D. on 10/23/2016 at 14:40 Chest XR 10/22 IMPRESSION: Slightly improved aeration of the left lung base. Otherwise unchanged. Dictated by: Katina Vela M.D. on 10/22/2016 at 8:27 Approved by: Katina Vela M.D. on 10/22/2016 at 8:27 Abd US IMPRESSION: Gallstone within the gallbladder lumen, without gallbladder wall thickening. Slight amount of adjacent pericholecystic free fluid. Hepatomegaly , fatty infiltration throughout the liver. Slight amount of free fluid deep within the pelvis, not safe for ultrasound guided paracentesis. Poor visualization of significant portions of the retroperitoneum due to overlying bowel gas. X-ray from [facility] reveals new left basilar infiltrate. An improved right basilar atelectasis. Done on 10/19/16. CT abdomen pelvis without contrast performed on 10/19/16 showing cholelithiasis, pancreatitis, small amount of ascites, diverticulosis, appendectomy and hysterectomy. Cardiac Echo Impression Echo 10/21 Technically difficult study. The left ventricle is grossly normal size with hyperdynamic function. The ejection fraction is estimated to be 65-70%. Mildly dilated left atrium. No obvious valvular abnormality. Right ventricular systolic pressure is estimated to be 35 mmHg plus the clinically estimated CVP which cannot be estimated on this exam Other Diagnostics DateTimeAnalyzed 17:46:48 -_ pH ____7.135 - 7.350 7.450 pCO2 ___49.4__ -mmHg 35.0 45.0 pO2 143 -mmHg 70.0 100 HCO3- ___16.6__ -mmol/L 22.0 26.0 Brief History Cori Dewitt is a 61-year-old woman with past history significant for COPD, hypertension, depression, bipolar disorder, hepatitis C and morbid obesity who was initially evaluated and treated at [facility] emergency department and was admitted secondary to complaints of abdominal pain weakness. During her evaluation at [facility] she was noted to have acute pancreatitis with a lipase of 33,054 cholelithiasis and metabolic acidosis and was transferred to [facility]. Upon her arrival to [facility] the patient had significant respiratory distress and was intubated for airway protection. The history is obtained from records from [place] by hospital as well as the patient's family. At [place], her exam at that time revealed to have epigastric discomfort to palpation with laboratory evaluation notable for significantly elevated amylase and lipase as well as a CT scan that was consistent with pancreatitis. There was no evidence of pancreatic necrosis at that time. She was also noted to have a pulmonary infiltrate that was questionable for pneumonia. She was noted to be in acute renal failure with a creatinine of nearing 3 but was able to produce urine. Of main concern to the outside hospital as was the patient's refractory metabolic acidosis. The patient was noticed to be worsening in her metabolic status with a pH declining from 7.3-7.1 despite a bicarbonate drip. Patient was started on IV Rocephin and IV Zithromax. Metabolic panel from 10/19 showed a potassium of 5.5 chloride of 102 and bicarbonate of 17 as well as a creatinine of 2.9 and a BUN a 54. D-dimer was noted to be elevated at 11. An ABG drawn on shows a pH of 7.14 with a PaCO2 of 43.4 and a PO2 of 72.6 and a bicarbonate 14.6 with a lactic acid of 0.5 drawn at the same time. She was admitted to the ICU and placed on a Ventilator and Norepinephine to maintain pressures. She slowly improved daily in regards to her renal function, pressure stability, LE and pulmonary edema and was successfully weaned off pressors. Her respiratory status never improved. She was started on Nimbex as she had significant overbreathing and air trapping, and failed the multiple attempts at weaning the Nimbex. A discussion with her family revealed that her health had been in a downward trend, including recent intubation at [place] for another COPD exacerbation. Palliative care met with the family and the decision was to proceed with compassionately extubating the patient. Ultimately, Ms. Dewitt was unable to ventilate effectively on her own and on 10/28 at 1914. Hospital Course Patient is a 61-year-old female with medical history significant for COPD, hypertension, bipolar/depression, and morbidly obese presented with severe pancreatitis, intubated for airway protection with multiple failed weaning attempts. She was compassionately extubated at 1650 and at 1914 on . Metabolic encephalopathy - Compassionate extubation at 1650 per family request Anion gap metabolic acidosis - Salicylates negative, methyl alcohol, lactic acid, ethylene glycol negative - Gap was steady between 15-18, due to respiratory status Pancreatitis - US abdomen ordered, gallstone present but no conclusive evidence - CT showed gallstones but no ductal dilation, some fluid around the pancreas Severe Sepsis - Patient met SIRS criteria on admission, likely source cellulitis of LE Cellulitis - CT head/chest/abd/pelvis was negative for abscess, fluid collection Acute on Chronic Kidney Injury - Creatinine continued to trend down at 1.01 Atrial Fibrillation with RVR - Patient converted to NSR with HR 80-90 Exam Test 10/20/16 19:03 10/21/16 05:00 10/21/16 10:55 10/22/16 02:30 Hemoglobin A1c 6.1% (4.8-5.6) Osmolality 299 (275-300) Troponin T < 0.010ug/L (0.0-0.011) Salicylates Level 3.0ug/mL (30-250) Ketones Negative (Negative) Urine Color Yellow (YELLOW) Urine Appearance Clear (CLEAR,HAZY) Urine pH 5.0 (5.0-8.0) Urine Specific [place] 1.010 (1.003-1.035) Urine Protein 30mg/dL (NEG,TRACE) Urine Glucose (UA) Negativemg/dL (NEGATIVE) Urine Ketones Negativemg/dL (NEGATIVE) Urine Occult Blood Large (NEGATIVE) Urine Nitrite Negative (NEGATIVE) Urine Bilirubin Negative (NEGATIVE) Urine Urobilinogen Normalmg/dL (NORMAL) Urine Leukocyte Esterase Trace (NEGATIVE) Urine RBC >50/hpf (0-2) Urine WBC 0-5/hpf (0-5) Urine Epithelial Cells Occasional/hpf (NONE-MOD) Urine Crystals None seen (NONE SEEN) Urine Bacteria Moderate/hpf (NONE-FEW) Urine Hyaline Casts Occasional/lpf (NONE) Urine Granular Casts None seen (NONE SEEN) Urine Waxy Casts None seen (NONE SEEN) Urine Red Blood Cell Casts None seen (NONE SEEN) Urine White Blood Cell Casts None seen (NONE SEEN) Urine Mucus Present (None Seen) Urine Trichomonas None seen (NONE SEEN) Urine Yeast None (NONE SEEN) Urinalysis Comment None Urine Culture Reflexed Indicated Cholesterol Level 96mg/dL (100-199) LDL Cholesterol, Calculated 57.800mg/dL (0-99) VLDL Cholesterol 29.200mg/dL HDL Cholesterol 9mg/dL (>39) Cholesterol/HDL Ratio 10.67 (0.0-4.4) Vancomycin Level Trough 19.6mcg/mL Ethylene Glycol None detectedmg/dL Methyl Alcohol Level Negative% (0.000-0.010) Hepatitis C Virus Quantitation Hcv not detectedIU/mL Hepatitis C RNA (PCR) log10 (.) Hepatitis C Comment Comment (.) HIV (1&2) Ag and Ab, 4th Generation Non reactive (Non Reactive) Total Creatine Kinase 86U/L (21-215) Pro-B-Type Natriuretic Peptide 398.8pg/mL (0-287) Triglycerides Level 174mg/dL (0-149) Streptozyme 206.0IU/mL (0.0-200.0) Test 10/22/16 04:50 10/22/16 09:35 10/22/16 11:05 10/23/16 04:35 Hold Purple Top Tube Received (Received) Hold Sheikh Top Tube Received (Received) Lactic Acid Level 0.4mmol/L (0.4-2.0) Plasma D-Lactate <0.20 Hematology Comments Thyroxine (T4) 3.2ug/dL (4.7-13.3) Test 10/23/16 16:50 10/24/16 05:00 10/25/16 05:15 10/27/16 05:15 Prealbumin 12mg/dL (20-40) Lipase 133U/L (13-60) Thyroid Stimulating Hormone (TSH) 0.569uIU/mL (0.450-4.500) Free Thyroxine 0.42ng/dL (0.82-1.77) Band Neutrophils % 2% (1-5) Metamyelocytes % 3% (0-0) Test 10/28/16 05:30 White Blood Count 20.1th/mm3 (3.8-10.1) Red Blood Count 3.02mil/mm3 (3.90-5.20) Hemoglobin 9.0g/dL (12.0-15.6) Hematocrit 29.6% (35.0-46.0) Mean Corpuscular Volume 98.0fL (81-100) Mean Corpuscular Hemoglobin 29.8pg (27.0-35.0) Mean Corpuscular Hemoglobin Concent 30.4% (32.0-37.0) Red Cell Distribution Width 16.5% (12.3-15.4) Platelet Count 293bil/L (150-400) Neutrophils (%) (Auto) 82.8% (40-74) Lymphocytes (%) (Auto) 3.1% (14-46) Monocytes (%) (Auto) 6.1% (4-12) Eosinophils (%) (Auto) 0% (0-5) Basophils (%) (Auto) 0.2% (0-3) Sodium Level 148mEq/L (134-144) Potassium Level 4.7mEq/L (3.5-5.2) Chloride Level 111mEq/L (97-108) Carbon Dioxide Level 22mmol/L (18-29) Blood Urea Nitrogen 63mg/dL (8-27) Creatinine 1.01mg/dL (0.57-1.00) Estimat Glomerular Filtration Rate 79mL/min (>59) Glucose Level 154mg/dL (60-99) Calcium Level 8.8mg/dL (8.5-10.1) Phosphorus Level 4.6mg/dL (2.5-4.9) Magnesium Level 2.5mg/dL (1.6-2.6) Total Bilirubin 0.2mg/dL (0.0-1.2) Aspartate Amino Transf (AST/SGOT) 29U/L (0-50) Alanine Aminotransferase (ALT/SGPT) 16U/L (0-32) Alkaline Phosphatase 48U/L (25-165) Total Protein 5.5g/dL (6.4-8.4) Albumin 2.9g/dL (3.4-5.0) Procalcitonin 0.07ng/mL (0.00-0.08) Attending Statement The patient was seen and examined together with Dr. Castillo on 10/28/2016 and I agree with the history, exam and plan as outlined in the note above. . copies to: Brannon Fournier MD, Jeffery S DO Oct 29, 2016 11:56 Jeanmarie Dobbs MD Oct 31, 2016 07:59 Total Bilirubin 0.2mg/dL (0.0-1.2) Aspartate Amino Transf (AST/SGOT) 29U/L (0-50) Alanine Aminotransferase (ALT/SGPT) 16U/L (0-32) Alkaline Phosphatase 48U/L (25-165) Total Protein 5.5g/dL (6.4-8.4) Albumin 2.9g/dL (3.4-5.0) Procalcitonin 0.07ng/mL (0.00-0.08) Sadi Castillo DO Oct 29, 2016 11:56
== END 2016-10-28 19:14 | disposition expired | DRG 870 ==
LOC: CCU 17:43
PROVIDERS: ADMIT Hospitalist; ATTEND Hospitalist
PROC: 5A1955Z Respiratory Ventilation, Greater than 96 Consecutive Hours (ICD-10-PCS; principal; 2016-10-20)
PROC: 4A033R1 Measurement of Arterial Saturation, Peripheral, Percutaneous Approach (ICD-10-PCS; 2016-10-20)
PROC: 05HM33Z Insertion of Infusion Device into Right Internal Jugular Vein, Percutaneous Approach (ICD-10-PCS; 2016-10-20)
PROC: 0BH17EZ Insertion of Endotracheal Airway into Trachea, Via Natural or Artificial Opening (ICD-10-PCS; 2016-10-20)
PROC: 03HY32Z Insertion of Monitoring Device into Upper Artery, Percutaneous Approach (ICD-10-PCS; 2016-10-21)
DX: A41.9 Sepsis, unspecified organism (principal); K85.10 Biliary acute pancreatitis without necrosis or infection; G93.41 Metabolic encephalopathy; R65.21 Severe sepsis with septic shock; J96.21 Acute and chronic respiratory failure with hypoxia; J96.22 Acute and chronic respiratory failure with hypercapnia; N17.9 Acute kidney failure, unspecified; E87.2 Acidosis; L03.116 Cellulitis of left lower limb; J44.1 Chronic obstructive pulmonary disease with (acute) exacerbation; Z68.43 Body mass index [BMI] 50.0-59.9, adult; E66.01 Morbid (severe) obesity due to excess calories; I12.9 Hypertensive chronic kidney disease with stage 1 through stage 4 chronic kidney disease, or unspecified chronic kidney disease; N18.3 Chronic kidney disease, stage 3 (moderate); I48.0 Paroxysmal atrial fibrillation; Z51.5 Encounter for palliative care